=== PATIENT | female | born 1960 | race American Indian/Alaskan Native ===

== ENCOUNTER 2017-11-22 23:50 | Inpatient (IN) | payer OTHER ==
--- NOTE | 2017-11-23 00:03 | Emergency Department Report ---
<GRIS PALM - Last Filed: 11/23/17 05:00> ED General Adult HPI - General Chief complaint: Syncope Stated complaint: SYNCOPE Time Seen by Provider: 11/22/17 23:56 - Related Data Allergies Allergy/AdvReac Type Severity Reaction Status Date / Time No Known Allergies Allergy Unverified 11/23/17 08:20 ED Review of Systems ROS: Stated complaint: SYNCOPE Other details as noted in HPI ED Course Vital Signs 11/22/17 11/23/17 11/23/17 23:55 00:00 00:35 Pulse Rate 89 94 H 91 H Respiratory 16 16 14 Rate Blood Pressure 133/91 165/85 Blood Pressure 165/85 [Left] O2 Sat by Pulse 100 90 99 Oximetry 11/23/17 11/23/17 11/23/17 00:45 01:00 01:15 Pulse Rate 94 H 93 H 97 H Respiratory 16 13 16 Rate Blood Pressure 136/85 138/80 146/94 Blood Pressure [Left] O2 Sat by Pulse 93 100 94 Oximetry 11/23/17 11/23/17 11/23/17 01:30 01:35 01:45 Pulse Rate 93 H 91 H Respiratory 10 L 14 16 Rate Blood Pressure 142/87 136/87 Blood Pressure [Left] O2 Sat by Pulse 98 100 99 Oximetry 11/23/17 11/23/17 11/23/17 02:00 02:15 02:31 Pulse Rate 87 89 91 H Respiratory 19 13 16 Rate Blood Pressure 138/80 142/87 142/87 Blood Pressure [Left] O2 Sat by Pulse 99 100 100 Oximetry 11/23/17 11/23/17 11/23/17 02:45 03:01 03:15 Pulse Rate 93 H 88 89 Respiratory 18 18 14 Rate Blood Pressure 136/87 136/87 136/87 Blood Pressure [Left] O2 Sat by Pulse 100 100 100 Oximetry 11/23/17 11/23/17 11/23/17 03:49 04:01 04:15 Pulse Rate 93 H 94 H Respiratory 17 23 Rate Blood Pressure 136/87 136/87 136/87 Blood Pressure [Left] O2 Sat by Pulse 99 100 99 Oximetry 11/23/17 11/23/17 11/23/17 04:55 05:00 05:15 Pulse Rate 96 H 87 84 Respiratory 18 16 17 Rate Blood Pressure 136/87 146/81 146/81 Blood Pressure [Left] O2 Sat by Pulse 98 100 Oximetry 11/23/17 11/23/17 11/23/17 05:30 05:45 06:00 Pulse Rate 86 86 89 Respiratory 15 18 18 Rate Blood Pressure 135/83 137/92 138/91 Blood Pressure [Left] O2 Sat by Pulse 100 99 94 Oximetry 11/23/17 11/23/17 11/23/17 06:15 06:30 07:00 Pulse Rate 83 86 79 Respiratory 15 15 15 Rate Blood Pressure 135/83 127/73 126/71 Blood Pressure [Left] O2 Sat by Pulse 100 93 96 Oximetry 11/23/17 11/23/17 11/23/17 07:15 07:30 07:45 Pulse Rate 78 78 83 Respiratory 14 14 14 Rate Blood Pressure 123/67 118/69 120/75 Blood Pressure [Left] O2 Sat by Pulse 95 99 97 Oximetry ED Medical Decision Making - Lab Data Result diagrams: 11/23/17 00:37 11/23/17 00:37 Lab Results 11/23/17 11/23/17 11/23/17 Range/Units 00:37 00:37 00:37 WBC 12.2 H (4.5-11.0) K/mm3 RBC 3.59 L (3.65-5.03) M/mm3 Hgb 11.9 (10.1-14.3) gm/dl Hct 34.7 (30.3-42.9) % MCV 97 (79-97) fl MCH 33 H (28-32) pg MCHC 34 (30-34) % RDW 14.4 (13.2-15.2) % Plt Count 163 (140-440) K/mm3 Lymph % (Auto) 18.3 (13.4-35.0) % [place] % (Auto) 8.2 H (0.0-7.3) % Eos % (Auto) 1.4 (0.0-4.3) % Baso % (Auto) 0.3 (0.0-1.8) % Lymph # 2.2 (1.2-5.4) K/mm3 [place] # 1.0 H (0.0-0.8) K/mm3 Eos # 0.2 (0.0-0.4) K/mm3 Baso # 0.0 (0.0-0.1) K/mm3 Seg Neutrophils % 71.8 H (40.0-70.0) % Seg Neutrophils # 8.8 H (1.8-7.7) K/mm3 PT (12.2-14.9) Sec. INR (0.87-1.13) APTT (24.2-36.6) Sec. Thrombin Time (15.1-19.6) Sec. Sodium 141 (137-145) mmol/L Potassium 2.8 L* (3.6-5.0) mmol/L Chloride 101.6 (98-107) mmol/L Carbon Dioxide 25 (22-30) mmol/L Anion Gap 17 mmol/L BUN 11 (7-17) mg/dL Creatinine 0.7 (0.7-1.2) mg/dL Estimated GFR > 60 ml/min BUN/Creatinine Ratio 16 % Glucose 124 H (65-100) mg/dL Calcium 9.5 (8.4-10.2) mg/dL Troponin T < 0.010 (0.00-0.029) ng/mL 11/23/17 Range/Units 00:39 WBC (4.5-11.0) K/mm3 RBC (3.65-5.03) M/mm3 Hgb (10.1-14.3) gm/dl Hct (30.3-42.9) % MCV (79-97) fl MCH (28-32) pg MCHC (30-34) % RDW (13.2-15.2) % Plt Count (140-440) K/mm3 Lymph % (Auto) (13.4-35.0) % [place] % (Auto) (0.0-7.3) % Eos % (Auto) (0.0-4.3) % Baso % (Auto) (0.0-1.8) % Lymph # (1.2-5.4) K/mm3 [place] # (0.0-0.8) K/mm3 Eos # (0.0-0.4) K/mm3 Baso # (0.0-0.1) K/mm3 Seg Neutrophils % (40.0-70.0) % Seg Neutrophils # (1.8-7.7) K/mm3 PT 14.1 (12.2-14.9) Sec. INR 1.04 (0.87-1.13) APTT 29.2 (24.2-36.6) Sec. Thrombin Time 15.5 (15.1-19.6) Sec. Sodium (137-145) mmol/L Potassium (3.6-5.0) mmol/L Chloride (98-107) mmol/L Carbon Dioxide (22-30) mmol/L Anion Gap mmol/L BUN (7-17) mg/dL Creatinine (0.7-1.2) mg/dL Estimated GFR ml/min BUN/Creatinine Ratio % Glucose (65-100) mg/dL Calcium (8.4-10.2) mg/dL Troponin T (0.00-0.029) ng/mL - Radiology Data CTA of the head and neck are within normal limits - Medical Decision Making The patient is a 57-year-old female who had a episode of cardiac arrest. Patient was shocked twice prior to arrival. Patient arrived alert but unable to speak. Patient was made a code stroke and was sent for his emergent CT of the head. No bleeds were seen. Was advised that the patient get a CTA of the head and neck which also was negative. Patient has returned back to her baseline. Patient is able to speak in the lower extremities as is. At the time of admission patient's NIH was 0. Patient also complains some low back discomfort and x-ray of been ordered. Patient be admitted to the hospitalist service at this time. Critical care attestation.: If time is entered above; I have spent that time in minutes in the direct care of this critically ill patient, excluding procedure time. ED Disposition Clinical Impression: Cardiac arrest, Hypokalemia, TIA (transient ischemic attack) Dysrhythmia, cardiac Qualifiers: Arrhythmia type: unspecified cardiac arrhythmia Qualified Code(s): I49.9 - Cardiac arrhythmia, unspecified Disposition: 09 OP ADMIT IP TO THIS HOSP Is pt being admited?: Yes Does the pt Need Aspirin: Yes Condition: Serious Time of Disposition: 05:05 <MACIE RICH - Last Filed: 11/23/17 17:00> ED General Adult HPI - General Source: patient, EMS Limitations: Altered Mental Status - History of Present Illness Initial comments: 57-year-old female presents with EMS after being found unresponsive after reported possible fall at work. Per EMS bystander started CPR and applied AED which applied one shock. On EMS arrival patient was without a pulse another shock applied per EMS. Return of spontaneous circulation achieved per EMS. On arrival patient is responding to commands and moving all extremities but aphasic. Frontal hematoma noted on exam pupils equal and reactive c-collar placed for precautions. Patient diaphoretic with urinary incontinence. CT stroke protocol initiated for immediate CT. MD Complaint: syncope ED Review of Systems Comment: Unobtainable due to pts medical conditions ED Physical Exam - General Limitations: Altered Mental Status General appearance: alert, in distress, other (patient following commands and moving all extremities) - Head Head exam: Present: other (frontal hematoma noted. No yuen sign no hemotympanum.) - Eye Eye exam: Present: PERRL Pupils: Present: normal accommodation - ENT ENT exam: Present: normal orophraynx, mucous membranes moist, TM's normal bilaterally - Neck Neck exam: Absent: tenderness, meningismus - Respiratory Respiratory exam: Present: normal lung sounds bilaterally, other (patient protecting airway, gag reflex intact). Absent: respiratory distress, wheezes, rales - Cardiovascular Cardiovascular Exam: Present: regular rate, normal heart sounds - GI/Abdominal GI/Abdominal exam: Present: soft. Absent: distended, tenderness, guarding, rebound - Rectal Rectal exam: Present: deferred - Extremities Exam Extremities exam: Present: full ROM. Absent: pedal edema, joint swelling - Back Exam Back exam: Present: normal inspection. Absent: tenderness - Neurological Exam Neurological exam: Present: alert (nonverbal) - Skin Skin exam: Present: diaphoretic ED Course Vital Signs 11/22/17 11/23/17 11/23/17 23:55 00:00 00:35 Pulse Rate 89 94 H 91 H Respiratory 16 16 14 Rate Blood Pressure 133/91 165/85 Blood Pressure 165/85 [Left] O2 Sat by Pulse 100 90 99 Oximetry 11/23/17 11/23/17 11/23/17 00:45 01:00 01:15 Pulse Rate 94 H 93 H 97 H Respiratory 16 13 16 Rate Blood Pressure 136/85 138/80 146/94 Blood Pressure [Left] O2 Sat by Pulse 93 100 94 Oximetry 11/23/17 11/23/17 11/23/17 01:30 01:35 01:45 Pulse Rate 93 H 91 H Respiratory 10 L 14 16 Rate Blood Pressure 142/87 136/87 Blood Pressure [Left] O2 Sat by Pulse 98 100 99 Oximetry 11/23/17 11/23/17 11/23/17 02:00 02:15 02:31 Pulse Rate 87 89 91 H Respiratory 19 13 16 Rate Blood Pressure 138/80 142/87 142/87 Blood Pressure [Left] O2 Sat by Pulse 99 100 100 Oximetry 11/23/17 11/23/17 11/23/17 02:45 03:01 03:15 Pulse Rate 93 H 88 89 Respiratory 18 18 14 Rate Blood Pressure 136/87 136/87 136/87 Blood Pressure [Left] O2 Sat by Pulse 100 100 100 Oximetry 11/23/17 11/23/17 11/23/17 03:49 04:01 04:15 Pulse Rate 93 H 94 H Respiratory 17 23 Rate Blood Pressure 136/87 136/87 136/87 Blood Pressure [Left] O2 Sat by Pulse 99 100 99 Oximetry 11/23/17 11/23/17 11/23/17 04:55 05:00 05:15 Pulse Rate 96 H 87 84 Respiratory 18 16 17 Rate Blood Pressure 136/87 146/81 146/81 Blood Pressure [Left] O2 Sat by Pulse 98 100 Oximetry 11/23/17 11/23/17 11/23/17 05:30 05:45 06:00 Pulse Rate 86 86 89 Respiratory 15 18 18 Rate Blood Pressure 135/83 137/92 138/91 Blood Pressure [Left] O2 Sat by Pulse 100 99 94 Oximetry 11/23/17 11/23/17 11/23/17 06:15 06:30 07:00 Pulse Rate 83 86 79 Respiratory 15 15 15 Rate Blood Pressure 135/83 127/73 126/71 Blood Pressure [Left] O2 Sat by Pulse 100 93 96 Oximetry 11/23/17 11/23/17 11/23/17 07:15 07:30 07:45 Pulse Rate 78 78 83 Respiratory 14 14 14 Rate Blood Pressure 123/67 118/69 120/75 Blood Pressure [Left] O2 Sat by Pulse 95 99 97 Oximetry - Reevaluation(s) Reevaluation #1: 11/23/17 00:10 Patient alert but nonverbal, protecting airway. Vital signs reviewed. Patient stable for transport for immediate CT scan. Reevaluation #2: 11/23/17 00:58 Patient now alert and oriented 3 and reports of pain in her head over the hematoma. Pt moving all extremities. Pt denies any sx prior to passing out. Pt denies any current pain - Consultations Consultation #1: 11/23/17 00:[address] Pettit (neurology) who agrees with management thus far. Agrees no TPA at this time secondary to likely trauma. Recommendation for CT angiogram of head and neck. ED Medical Decision Making - Lab Data Result diagrams: 11/23/17 00:37 11/23/17 15:00 - EKG Data 11/23/17 01:15 Ventricular paced rhythm. Left bundle branch block. Rate of 95. - Medical Decision Making Reassessment patient is alert and oriented [address] angiogram study. Patient to be signed out to Dr. Palm for follow-up on CT studies and admission. Critical care time in (mins) excluding proc time.: 45 - Level of Consciousness 1a. Level of Consciousness: alert/keenly responsive - LOC Questions 1b. LOC Questions: answers no questions correctly - LOC Command 1c. LOC Commands: performs tasks correctly - Best Gaze 2. Best Gaze: partial gaze palsy - Visual 3. Visual: no visual loss - Facial Palsy 4. Facial Palsy: normal symmetrical movement - Motor Arm 5b. Motor Arm Right: no drift 5a. Motor Arm Left: no drift - Motor Leg 6a. Motor Leg Left: no drift 6b. Motor Leg Right: no drift - Limb Ataxia 7. Limb Ataxia: absent - Sensory 8. Sensory: normal - Best Language 9. Best Language: severe aphasia - Dysarthria 10. Dysarthria: mild/moderate dysarthria - Extinction and Inattention 11. Extinction/Inattention: no abnormality (No TPA given secondary to possible head trauma) - Scoring Total Score: 6 Stroke Severity: Moderate Stroke
--- NOTE | 2017-11-23 00:40 | Cat Scan Report ---
FINAL REPORT PROCEDURE: CT HEAD/BRAIN WO CON TECHNIQUE: Computerized tomography of the head was performed without contrast material. HISTORY: trauma COMPARISON: No prior studies are available for comparison. FINDINGS: Skull and scalp: There is right frontal scalp swelling. There is no skull fracture. Paranasal sinuses: Normal. Ventricles and subarachnoid spaces: There is mild central and cortical atrophy. There is no hydrocephalus or asymmetry.. Cerebrum: No evidence of hemorrhage, acute infarction or mass . Cerebellum and brainstem: No evidence of hemorrhage, acute infarction or mass. IMPRESSION: There is right frontal scalp swelling. There is no skull fracture. There is no intracranial hemorrhage.
--- NOTE | 2017-11-23 01:00 | Cat Scan Report ---
FINAL REPORT PROCEDURE: CT CERVICAL SPINE WO CON TECHNIQUE: Computerized tomography of the cervical spine was performed from the skull base to T1 without contrast material. HISTORY: trauma COMPARISON: No prior studies are available for comparison. FINDINGS: There are no fractures or malalignments. There is no significant degenerative disc change or facet arthropathy. The skull base and foramen magnum are intact. Soft tissues are unremarkable. Images of the upper thorax demonstrate bilateral pulmonary infiltrates. IMPRESSION: There is no acute traumatic bony injury..
[2017-11-23 01:02] LABS: Basophils % (Auto) 0.3 % (0.0-1.8); Eosinophils # (Auto) 0.2 K/mm3 (0.0-0.4); Eosinophils % (Auto) 1.4 % (0.0-4.3); Hematocrit 34.7 % (30.3-42.9); Hemoglobin 11.9 gm/dl (10.1-14.3); Lymphocytes # (Auto) 2.2 K/mm3 (1.2-5.4); Lymphocytes % (Auto) 18.3 % (13.4-35.0); Mean Corpuscular HGB Conc 34 % (30-34); Mean Corpuscular Hemoglobin 33 pg (28-32); Mean Corpuscular Volume 97 fl (79-97); Monocytes % (Auto) 8.2 % (0.0-7.3); Platelet Count 163 K/mm3 (140-440); Red Blood Count 3.59 M/mm3 (3.65-5.03); Red Cell Distribution Width 14.4 % (13.2-15.2)
--- NOTE | 2017-11-23 01:02 | XRay Report ---
FINAL REPORT PROCEDURE: XR CHEST 1V AP TECHNIQUE: Chest radiograph anteroposterior view. CPT 53443 HISTORY: Chest Pain COMPARISON: No prior studies are available for comparison. FINDINGS: Heart: Heart size is normal. Mediastinum/Vessels: Normal. Lungs/Pleural space: There are infiltrates throughout the right lung. The left lung is clear. There are no effusions or pneumothoraces.. Bony thorax: No acute osseous abnormality. Life support devices: Pacemaker leads are in proper position.. IMPRESSION: Heart size is normal. There are infiltrates throughout the right lung. The left lung is clear. There are no effusions or pneumothoraces.. Pacemaker leads are in proper position.. .
[2017-11-23 01:23] LABS: INR 1.04 (0.87-1.13)
[2017-11-23 01:24] LABS: Partial Thromboplastin Time 29.2 Sec. (24.2-36.6)
[2017-11-23 01:24] LABS: BUN/Creatinine Ratio 16; Blood Urea Nitrogen 11 mg/dL (7-17); Calcium 9.5 mg/dL (8.4-10.2); Hemolysis Index 8
[2017-11-23] MEDS ORDERED: KCL 10MEQ/100ML 10 MEQ/100 ML BAG IV ONE (01:35)
[2017-11-23 01:47] LABS: Thrombin Time 15.5 Sec. (15.1-19.6)
--- NOTE | 2017-11-23 03:11 | Event Note ---
Date: 11/23/17 Patient did not have access large enough for a CTA. I was able to use ultrasound machine to find a 20-gauge IV in the right ac
[2017-11-23] MEDS ORDERED: NORCO 5/325 PO ONE (04:23)
--- NOTE | 2017-11-23 04:27 | Cat Scan Report ---
FINAL REPORT PROCEDURE: CT ANGIO HEAD TECHNIQUE: Computerized tomographic angiography of the head was performed after the IV injection of iodinated nonionic contrast including image processing. The image data was postprocessed using 2-dimensional multiplanar reformatted (MPR) and 3-dimensional (MIP and/or volume rendered) techniques. HISTORY: cva COMPARISON: CT of the head the 11/22/2017 FINDINGS: Intracranial vessels: Carotid siphon: There is calcified plaque in the cavernous portions of the internal carotid arteries without stenosis. Anterior cerebral: Normal. Middle cerebral: Normal. Posterior cerebral:There is origin of the posterior cerebral arteries which is a normal variation. Vertebral arteries including basilar: Vertebral arteries and basilar artery are small in caliber but patent. Aneurysms: None. Dural sinuses: Normal. IMPRESSION: There is no intracranial arterial stenosis or occlusion. There is no aneurysm or vascular malformation.
--- NOTE | 2017-11-23 04:39 | Cat Scan Report ---
FINAL REPORT PROCEDURE: CT ANGIO NECK TECHNIQUE: Computerized tomographic angiography of the neck was performed after the IV injection of iodinated nonionic contrast including image processing. The image data was postprocessed using 2-dimensional multiplanar reformatted (MPR) and 3-dimensional (MIP and/or volume rendered) techniques. HISTORY: cva COMPARISON: No prior studies are available for comparison. Note: Assessment of carotid artery stenosis is based on measurement of the distal internal carotid artery diameter as the denominator for stenosis calculations and the [place] Citizen Symptomatic Carotid Endarterectomy Trial (NASCET) stenosis criteria . CPT 3100F FINDINGS: Sinuses: Normal . Non vascular cervical structures: No significant abnormality . Aortic arch: Normal . Right carotid artery: Normal . Left carotid artery: Normal . Vertebral arteries: Left vertebral artery is slightly dominant. This is a normal variation.. There are infiltrates at the lung apices. IMPRESSION: There is no cervical carotid or vertebral artery stenosis or dissection.
[2017-11-23] MEDS ORDERED: ASPIRIN PO ONE (05:05)
--- NOTE | 2017-11-23 05:11 | XRay Report ---
FINAL REPORT PROCEDURE: XR SPINE LUMBOSACRAL 2-3V TECHNIQUE: Lumbar spine radiographs, including AP, lateral, and lumbosacral spot views. CPT 52665 HISTORY: fall COMPARISON: No prior studies are available for comparison. FINDINGS: There is mild scoliosis with convexity to the right. There are no fractures. There is grade 1 anterior spondylolisthesis of L4 over L5 possibly due to facet arthropathy. There is bilateral facet arthropathy at L3-L4, L4-5 and L5-S1. Disc heights are within normal limits. Soft tissues are unremarkable. IMPRESSION: The there are degenerative changes as described. There is no acute traumatic injury..
[2017-11-23] MEDS ORDERED: ZOFRAN IV PRN (05:36)
[2017-11-23 06:51] LABS: Creatine Kinase MB 5.9 ng/mL (0.0-4.0)
[2017-11-23] MEDS ORDERED: ASPIRIN ONE (06:52)
--- NOTE | 2017-11-23 07:14 | History and Physical Report ---
CHIEF COMPLAINT: Syncopal attack. HISTORY OF PRESENTING ILLNESS: The patient is a 57-year-old female who was noted to have passed out at work and became unresponsive and the patient says she could not remember what happened before she passed out and the bystander started CPR and applied automated defibrillator to patient and shocked her once and then EMS was called. When EMS arrived, they found patient with no pulse and gave another shock and did some CPR on patient and patient regained spontaneous circulation and patient was brought to the Emergency Room and on arrival to the Emergency Room, the patient was responding to commands and moving all extremities but was not talking. The patient was also noted to be diaphoretic with urinary incontinence. The patient was presented for admission. PAST MEDICAL HISTORY: Pertinent for ill-defined heart disease. PAST SURGICAL HISTORY: Pertinent for pacemaker placement. FAMILY HISTORY: Family history is noncontributory. SOCIAL HISTORY: The patient does not smoke, does not drink alcohol and does not use illicit drugs. MEDICATIONS: The patient's home medications are not known at this time. ALLERGIES: There are no known drug allergies. REVIEW OF SYSTEMS: CONSTITUTIONAL: There is no fever, no chills. Diaphoresis is present. HEENT: There is no headache or sore throat. CARDIOVASCULAR: There is no chest pain or orthopnea. RESPIRATORY: There is no shortness of breath or cough. GASTROINTESTINAL SYSTEM: There is no nausea, no vomiting, no abdominal pain, diarrhea, or constipation. NEUROLOGIC: Syncopal attack noted, unresponsiveness was noted and aphasia of speech disturbance noted. MUSCULOSKELETAL SYSTEM: There is no joint pain or swelling. DERMATOLOGICAL SYSTEM: There is no skin rash or itching. GENITOURINARY SYSTEM: There is no dysuria, hematuria, or flank pain. Rest of system review is normal. PHYSICAL EXAMINATION: GENERAL: At this time of exam, the patient was found to be alert, oriented x 3, looking weak, but not in acute disease. VITAL SIGNS: Initial vital signs at the time of presentation showed pulse of 89, respiration 16, blood pressure 165/85, O2 saturation of 100% on room air. HEENT: Show pupils are equal, round, reactive to light and accommodating. Extraocular muscles are intact. NECK: Neck is supple with no JVD or carotid bruit. CARDIOVASCULAR: Showed normal first and second heart sounds with no gallops or murmurs. RESPIRATORY SYSTEM: Show good air entry on both sides of the lungs with no abnormal breath sounds. GASTROINTESTINAL SYSTEM: Show abdomen to be full, soft, nontender with no organomegaly or rigidity. NEUROLOGICAL: Neuro exam shows no focal deficits. MUSCULOSKELETAL: Shows no joint swelling or tenderness. DERMATOLOGICAL SYSTEM: Show no skin rash. GENITOURINARY: Showing no costovertebral angle tenderness. PERTINENT LABORATORY DATA AND IMAGING STUDIES: The patient had chest done that shows right lung infiltrate with clear left lung. The patient has cervical spine CT done that shows no fractures or acute lesion. The patient had CT of the head without contrast done that showed right frontal scalp swelling with no fracture in the skull and no intracranial hemorrhage. The patient had a CT angiogram of head and neck done that were unremarkable and patient's lumbar spine x-ray showed degenerative joint disease. The patient's lab result shows CBC with elevated white count of 12,200 with normal hemoglobin and normal hematocrit and CBC differential showing elevated segmented neutrophil of 71.8. The patient's coagulation studies were unremarkable and chemistry showed low potassium level of 2.8. DIAGNOSES: 1. Post cardiac arrest state. 2. Syncope. 3. Hypokalemia. PLAN OF ACTION: 1. The patient will be admitted to the ICU. 2. The patient will have cardiac enzymes involving troponin, total CK and CK-MB checked q. 6 hours x 2 more levels. 3. The patient will have complete echocardiogram done this morning and will also have bilateral carotid Doppler done because of the syncopal attack. 4. The patient will have Cardiology consult with Dr. Plummer because of cardiac arrest requiring cardiac shock. 5. The patient will have a Critical Care consult with Dr. Laureano because of ICU admission. 6. The patient will be on p.r.n. medications like Tylenol 650 mg by mouth every 4 hours for fever and headache and aspirin 325 mg daily by mouth. The patient will also be on IV morphine 2 mg every 3 hours as needed for pain and IV Zofran 4 mg every 8 hours as needed for nausea and vomiting and patient will have additional 10 mEq of KCl given in addition to the first order for 10 mEq. JOB# [id number] OCN/NTS FERNANDAD
[2017-11-23] MEDS ORDERED: NACL 0.9% 1000 ML 1,000 ML ONE (09:03)
[2017-11-23] MEDS: KCL 10MEQ/100ML 10 MEQ/100 ML BAG IV SCH ×2 (09:29→12:06)
[2017-11-23] MEDS: ASPIRIN PO SCH (09:30)
[2017-11-23] MEDS: HEPARIN SUB-Q SCH ×2 (09:30→21:04)
--- NOTE | 2017-11-23 11:15 | Consultation ---
History of Present Illness Consult date: 11/23/17 Requesting physician: TAYO SCHWARTZ Consult reason: cardiac arrest, syncope History of present illness: The pt is a 57 YO female with a past medical history of cardiomyopathy, ? AICD in situ (placed 09/2017), ETOH abuse, cocaine use, tobacco use. She is previously unknown to our practice and reports that she is regularly followed by [facility]. She does not recall the events which lead to her hospitalization. She works for [employer] and was found unresponsive after reported possible fall at work. Per EMS, bystander started CPR and applied AED which applied one shock. On EMS arrival patient was without a pulse another shock applied per EMS. Return of spontaneous circulation achieved per EMS. On arrival to ED, pt was responding to commands and moving all extremities but aphasic. On evaluation this AM, pt is A&O with no current cardiac complaints. Pt denies any prior CAD, AMI or arrhythmias. She is unsure if her AICD fired yesterday because she does not remember the events of yesterday. She does not know which company her AICD belongs to. Past History Past Medical History: heart failure Past Surgical History: Other (AICD) Social history: smoking, alcohol abuse, other (h/o cocaine use) Medications and Allergies Allergies Allergy/AdvReac Type Severity Reaction Status Date / Time No Known Allergies Allergy Unverified 11/23/17 08:20 Active Meds: Active Medications Acetaminophen (Tylenol) 650 mg PO Q4H PRN PRN Reason: Fever >101 Aspirin (Aspirin) 325 mg PO QDAY [facility] Last Admin: 11/23/17 09:30 Dose: 325 mg Heparin Sodium (Porcine) (Heparin) 5,000 unit SUB-Q Q12HR [facility] Last Admin: 11/23/17 09:30 Dose: 5,000 unit Morphine Sulfate (Morphine) 2 mg IV Q3H PRN PRN Reason: Pain, Moderate (4-6) Ondansetron HCl (Zofran) 4 mg IV Q8H PRN PRN Reason: Nausea And Vomiting Potassium Chloride (Potassium Chloride) 40 meq PO ONCE ONE Stop: 11/23/17 12:01 Potassium Chloride (Potassium Chloride) 40 meq PO ONCE ONE Stop: 11/23/17 18:01 Sodium Chloride (Sodium Chloride Flush Syringe 10 Ml) 10 ml IV PRN PRN PRN Reason: LINE FLUSH Review of Systems All systems: negative Cardiovascular: syncope, no chest pain, no shortness of breath, no dyspnea on exertion Neurological: syncope Physical Examination Vital Signs Pulse Resp BP Pulse Ox 89 16 165/85 100 11/22/17 23:55 11/22/17 23:55 11/22/17 23:55 11/22/17 23:55 General appearance: no acute distress HEENT: Positive: PERRL, Normocephaly, Mucus Membranes Moist Neck: Positive: neck supple, trachea midline Cardiac: Positive: Reg Rate and Rhythm, S1/S2 Lungs: Positive: clear to auscultation Neuro: Positive: Grossly Intact Abdomen: Positive: Soft. Negative: Tender Skin: Positive: Clear. Negative: Rash, Wound Musculoskeletal: No Pain Extremities: Absent: edema Results 11/23/17 00:37 11/23/17 00:37 Cardiac Enzymes 11/23/17 Range/Units 05:48 CK-MB (CK-2) 5.9 H (0.0-4.0) ng/mL Coagulation 11/23/17 Range/Units 00:39 PT 14.1 (12.2-14.9) Sec. INR 1.04 (0.87-1.13) APTT 29.2 (24.2-36.6) Sec. CBC 11/23/17 Range/Units 00:37 WBC 12.2 H (4.5-11.0) K/mm3 RBC 3.59 L (3.65-5.03) M/mm3 Hgb 11.9 (10.1-14.3) gm/dl Hct 34.7 (30.3-42.9) % Plt Count 163 (140-440) K/mm3 Lymph # 2.2 (1.2-5.4) K/mm3 [place] # 1.0 H (0.0-0.8) K/mm3 Eos # 0.2 (0.0-0.4) K/mm3 Baso # 0.0 (0.0-0.1) K/mm3 Comprehensive Metabolic Panel 11/23/17 Range/Units 00:37 Sodium 141 (137-145) mmol/L Potassium 2.8 L* (3.6-5.0) mmol/L Chloride 101.6 (98-107) mmol/L Carbon Dioxide 25 (22-30) mmol/L BUN 11 (7-17) mg/dL Creatinine 0.7 (0.7-1.2) mg/dL Glucose 124 H (65-100) mg/dL Calcium 9.5 (8.4-10.2) mg/dL - Imaging and Cardiology Echo: pending EKG: report reviewed, image reviewed EKG interpretations - Telemetry EKG Rhythm: Paced - EKG Ventricular dysrhythmias: ventricular premature com Pacemaker: atrial pacing w/capture Assessment and Plan Alexandre negative for AMI. ECG shows NAF. Attempt to obtain [facility] records. Obtain echo. Replete K+. Interrogate AICD. The patient has been seen in conjunction with Dr. Mcgregor who agrees with the assessment and plan of care. - Patient Problems (1) Cardiac arrest with successful resuscitation Current Visit: Yes Status: Acute (2) History of cardiomyopathy Current Visit: Yes Status: Chronic (3) Automatic implantable cardioverter-defibrillator in situ Current Visit: Yes Status: Chronic (4) History of ETOH abuse Current Visit: Yes Status: Chronic (5) History of cocaine abuse Current Visit: Yes Status: Chronic (6) Tobacco use Current Visit: Yes Status: Chronic (7) Pneumonia Current Visit: Yes Status: Suspected (8) Hypokalemia Current Visit: Yes Status: Acute
--- NOTE | 2017-11-23 11:52 | Progress Note ---
Assessment and Plan Assessment and plan: S/p cardiopulmonary arrest. Patient with successful resuscitation. Continue per cardiology recommendations. -Alexandre negative for AMI. ECG shows NAF. -Attempt to obtain [facility] records. -Follow up echocardiogram -Interrogate AICD Cardiomyopathy with AICD in situ. As above History of EtOH/cocaine abuse. Continue withdrawal protocols. Pneumonia. Likely aspiration secondary from cardiopulmonary arrest. Start IV antibiotic for follow-up serial chest x-ray Hypokalemia. Replete potassium. History Interval history: The pt is a 57 YO female with a past medical history of cardiomyopathy, ? AICD in situ (placed 09/2017), ETOH abuse, cocaine use, tobacco use. She is regularly followed by [facility]. She does not recall the events which lead to her hospitalization. She works for [employer] and was found unresponsive after reported possible fall at work. Per EMS, bystander started CPR and applied AED which applied one shock. On EMS arrival, patient was without a pulse another shock applied per EMS. Return of spontaneous circulation achieved per EMS. On arrival to ED, pt was responding to commands and moving all extremities but aphasic. Presently, pt is A&O with no current cardiac complaints. Pt denies any prior CAD, AMI or arrhythmias. She does not remember the events leading up to her admission. Hospitalist Physical - Constitutional Vitals: Temp Pulse Resp BP Pulse Ox 83 14 120/75 96 11/23/17 07:45 11/23/17 07:45 11/23/17 07:45 11/23/17 08:44 General appearance: Present: no acute distress - EENT Eyes: Present: PERRL, EOM intact ENT: hearing intact, clear oral mucosa, dentition normal - Neck Neck: Present: supple, normal ROM - Respiratory Respiratory effort: normal Respiratory: bilateral: CTA - Cardiovascular Rhythm: regular Heart Sounds: Present: S1 & S2. Absent: gallop, rub - Extremities Extremities: no ischemia, No edema, Full ROM - Abdominal General gastrointestinal: soft, non-tender, non-distended, normal bowel sounds - Integumentary Integumentary: Present: clear, warm, dry - Neurologic Neurologic: CNII-XII intact, moves all extremities Results - Labs CBC & Chem 7: 11/23/17 00:37 11/23/17 00:37 Labs: Laboratory Last Values WBC 12.2 K/mm3 (4.5-11.0) H 11/23/17 00:37 RBC 3.59 M/mm3 (3.65-5.03) L 11/23/17 00:37 Hgb 11.9 gm/dl (10.1-14.3) 11/23/17 00:37 Hct 34.7 % (30.3-42.9) 11/23/17 00:37 MCV 97 fl (79-97) 11/23/17 00:37 MCH 33 pg (28-32) H 11/23/17 00:37 MCHC 34 % (30-34) 11/23/17 00:37 RDW 14.4 % (13.2-15.2) 11/23/17 00:37 Plt Count 163 K/mm3 (140-440) 11/23/17 00:37 Lymph % (Auto) 18.3 % (13.4-35.0) 11/23/17 00:37 [place] % (Auto) 8.2 % (0.0-7.3) H 11/23/17 00:37 Eos % (Auto) 1.4 % (0.0-4.3) 11/23/17 00:37 Baso % (Auto) 0.3 % (0.0-1.8) 11/23/17 00:37 Lymph # 2.2 K/mm3 (1.2-5.4) 11/23/17 00:37 [place] # 1.0 K/mm3 (0.0-0.8) H 11/23/17 00:37 Eos # 0.2 K/mm3 (0.0-0.4) 11/23/17 00:37 Baso # 0.0 K/mm3 (0.0-0.1) 11/23/17 00:37 Seg Neutrophils % 71.8 % (40.0-70.0) H 11/23/17 00:37 Seg Neutrophils # 8.8 K/mm3 (1.8-7.7) H 11/23/17 00:37 PT 14.1 Sec. (12.2-14.9) 11/23/17 00:39 INR 1.04 (0.87-1.13) 11/23/17 00:39 APTT 29.2 Sec. (24.2-36.6) 11/23/17 00:39 Thrombin Time 15.5 Sec. (15.1-19.6) 11/23/17 00:39 Sodium 141 mmol/L (137-145) 11/23/17 00:37 Potassium 2.8 mmol/L (3.6-5.0) L* 11/23/17 00:37 Chloride 101.6 mmol/L (98-107) 11/23/17 00:37 Carbon Dioxide 25 mmol/L (22-30) 11/23/17 00:37 Anion Gap 17 mmol/L 11/23/17 00:37 BUN 11 mg/dL (7-17) 11/23/17 00:37 Creatinine 0.7 mg/dL (0.7-1.2) 11/23/17 00:37 Estimated GFR > 60 ml/min 11/23/17 00:37 BUN/Creatinine Ratio 16 % 11/23/17 00:37 Glucose 124 mg/dL (65-100) H 11/23/17 00:37 Calcium 9.5 mg/dL (8.4-10.2) 11/23/17 00:37 Magnesium 1.70 mg/dL (1.7-2.3) 11/23/17 05:48 Total Creatine Kinase 530 units/L (30-135) H 11/23/17 05:48 CK-MB (CK-2) 5.9 ng/mL (0.0-4.0) H 11/23/17 05:48 CK-MB (CK-2) Rel Index 1.1 (0-4) 11/23/17 05:48 Troponin T 0.022 ng/mL (0.00-0.029) 11/23/17 05:48
[2017-11-23] MEDS ORDERED: KCL 10MEQ/100ML 10 MEQ/100 ML BAG IV SCH (12:00)
[2017-11-23] MEDS ORDERED: POTASSIUM CHLORIDE PO ONE ×2 (12:00→18:00)
[2017-11-23] MEDS ORDERED: MAGNESIUM SULFATE 4GM/100ML 4 GM/100 ML BAG IV ONE (13:00)
[2017-11-23] MEDS ORDERED: ADRENALIN ONE (13:22)
[2017-11-23] MEDS ORDERED: CALCIUM CHLORIDE IV ONE (13:22)
[2017-11-23] MEDS ORDERED: D50W (25GM) Syringe IV ONE (13:22)
[2017-11-23] MEDS ORDERED: SODIUM BICARBONATE IV ONE (13:22)
[2017-11-23] MEDS: ROCEPHIN/NS 1 GM/50 ML 1 GM/50 ML BAG IV SCH (14:16)
[2017-11-23] MEDS: MORPHINE IV PRN ×3 (14:35→21:04)
[2017-11-23 16:52] LABS: BUN/Creatinine Ratio 13; Blood Urea Nitrogen 8 mg/dL (7-17); Calcium 9.1 mg/dL (8.4-10.2); Hemolysis Index 11
--- NOTE | 2017-11-23 16:56 | Consultation ---
History of Present Illness Consult date: 11/23/17 Requesting physician: JOHNNY HERNADEZ Reason for consult: other (Post cardiac arrest, syncope) History of present illness: The pt is a 57 YO female with a past medical history of cardiomyopathy, s/p cardiac device (placed 09/2017), ETOH abuse, cocaine use, tobacco use. She does not recall the events which lead to her hospitalization. She works for [employer] and was found unresponsive after reported possible fall at work. Per EMS, bystander started CPR and applied AED which applied one shock. On EMS arrival patient was without a pulse another shock applied per EMS. Return of spontaneous circulation achieved per EMS. On arrival to ED, patient was responding to commands and moving all extremities but aphasic. She was admitted to the ICU for closer monitoring Patient was seen and examined. Vitals, labs,medications, chart and imaging were reviewed. She is awake, alert, oriented. Does not remember the immediate events that led to her collapse. Past History Past Medical History: heart failure Past Surgical History: Other (AICD) Social history: smoking, alcohol abuse, other (h/o cocaine use) Medications and Allergies Allergies Allergy/AdvReac Type Severity Reaction Status Date / Time No Known Allergies Allergy Unverified 11/23/17 08:20 Active Meds: Active Medications Acetaminophen (Tylenol) 650 mg PO Q4H PRN PRN Reason: Fever >101 Aspirin (Aspirin) 325 mg PO QDAY [facility] Last Admin: 11/23/17 09:30 Dose: 325 mg Heparin Sodium (Porcine) (Heparin) 5,000 unit SUB-Q Q12HR [facility] Last Admin: 11/23/17 09:30 Dose: 5,000 unit Ceftriaxone Sodium (Rocephin/Ns 1 Gm/50 Ml) 1 gm in 50 mls @ 100 mls/hr IV Q24HR [facility]; Protocol Last Admin: 11/23/17 14:16 Dose: 100 mls/hr Magnesium Sulfate (Magnesium Sulfate 4gm/100ml) 4 gm in 100 mls @ 25 mls/hr IV ONCE ONE Stop: 11/23/17 16:59 Last Admin: 11/23/17 16:07 Dose: 25 mls/hr Morphine Sulfate (Morphine) 2 mg IV Q3H PRN PRN Reason: Pain, Moderate (4-6) Last Admin: 11/23/17 14:35 Dose: 2 mg Ondansetron HCl (Zofran) 4 mg IV Q8H PRN PRN Reason: Nausea And Vomiting Potassium Chloride (Potassium Chloride) 40 meq PO ONCE ONE Stop: 11/23/17 18:01 Sodium Chloride (Sodium Chloride Flush Syringe 10 Ml) 10 ml IV PRN PRN PRN Reason: LINE FLUSH Physical Examination Vital signs: Vital Signs Pulse Resp BP Pulse Ox 89 16 165/85 100 11/22/17 23:55 11/22/17 23:55 11/22/17 23:55 11/22/17 23:55 Results - Laboratory Findings CBC and BMP: 11/23/17 00:37 11/23/17 15:00 PT/INR, D-dimer PT 14.1 Sec. (12.2-14.9) 11/23/17 00:39 INR 1.04 (0.87-1.13) 11/23/17 00:39 D-Dimer 558.12 ng/mlDDU (0-234) H 11/23/17 15:00 Abnormal lab findings: Abnormal Labs 11/23/17 11/23/17 11/23/17 00:37 00:37 05:48 WBC 12.2 H RBC 3.59 L MCH 33 H [place] % (Auto) 8.2 H [place] # 1.0 H Seg Neutrophils % 71.8 H Seg Neutrophils # 8.8 H D-Dimer Potassium 2.8 L* Carbon Dioxide Creatinine Glucose 124 H Total Creatine Kinase 530 H CK-MB (CK-2) 5.9 H 11/23/17 11/23/17 15:00 15:00 WBC RBC MCH [place] % (Auto) [place] # Seg Neutrophils % Seg Neutrophils # D-Dimer 558.12 H Potassium Carbon Dioxide 20 L Creatinine 0.6 L Glucose 120 H Total Creatine Kinase CK-MB (CK-2) Assessment and Plan -Cardiac arrest with ROSC Syncope h/o Cardiomyopathy h/o substance abuse disorder. Aspiration pneumonitis -Continue to monitor in the ICU, plan to transfer telemetry in the morning. -AICD interrogation per cardiology -Replete electrolytes -Keep K>4 and Magnesium at 2 -Mobility -Cardioprotective measures -Substance abuse counselling -Monitor off antibiotics, suspect this is aspiration pneumonitis. -prn bronchodilators -Supplemental oxygen as indicated for O2 sats<88% The high probability of a clinically significant, sudden or life-threatening deterioration of the [cardiac, respiratory] system(s) required my full and direct attention, intervention and personal management. The aggregate critical care time was [38] minutes without overlap. Time includes spent on; [x] Data Review and interpretation [x] Patient assessment and monitoring of vital signs [x] Documentation [x] Medication orders and management
[2017-11-23] MEDS: TYLENOL PO PRN (21:03)
[2017-11-23 21:53] LABS: Amphetamine Screen,Urine PRESUMPTIVE NEGATIVE; Benzodiazepines Screen,Urine PRESUMPTIVE NEGATIVE; Cannabinoid Screen,Urine PRESUMPTIVE NEGATIVE; Cocaine Screen,Urine PRESUMPTIVE NEGATIVE; Methadone Screen,Urine PRESUMPTIVE NEGATIVE; Opiate Screen,Urine PRESUMPTIVE NEGATIVE
[2017-11-24] MEDS: MORPHINE IV PRN ×3 (03:03→23:00)
[2017-11-24 08:46] LABS: BUN/Creatinine Ratio 14; Blood Urea Nitrogen 7 mg/dL (7-17); Calcium 8.8 mg/dL (8.4-10.2); Hemolysis Index 3
[2017-11-24] MEDS: HEPARIN SUB-Q SCH ×2 (10:21→23:00)
[2017-11-24] MEDS: ASPIRIN PO SCH (10:21)
[2017-11-24] MEDS: ROCEPHIN/NS 1 GM/50 ML 1 GM/50 ML BAG IV SCH (10:22)
--- NOTE | 2017-11-24 11:57 | Progress Note ---
Assessment and Plan Cardiac arrest with ROSC Syncope h/o Cardiomyopathy h/o substance abuse disorder. Aspiration pneumonitis -Transfer to telemetry -Replete electrolytes -Keep K>4 and Magnesium at 2 -Mobility -Cardio-protective measures -Substance abuse counselling -Monitor off antibiotics, suspect this is aspiration pneumonitis. Discontinue Ceftriaxone -prn bronchodilators -Supplemental oxygen as indicated for O2 sats<88% Subjective Date of service: 11/24/17 Interval history: Follow up: s/p cardiac arrest with ROSC, syncope, substance abuse disorder Seen and examined. Vitals, labs, medications, chart reviewed. No acute overnight events. Consulted nursing staff Telemetry shows a paced rhythm. She denies any shortness of breath, no fevers or chills. No nausea, no diarrhea. She feels much better Ambulating in the room, has chest pain which she attributes to chest compression. Objective Vital Signs - 12hr 11/24/17 11/24/17 11/24/17 00:00 00:10 00:20 Temperature Pulse Rate 77 75 77 Respiratory 11 L 12 12 Rate Blood Pressure 116/72 120/66 120/66 O2 Sat by Pulse 98 99 99 Oximetry 11/24/17 11/24/17 11/24/17 00:30 00:40 00:50 Temperature Pulse Rate 78 81 76 Respiratory 12 12 11 L Rate Blood Pressure 120/66 116/72 116/72 O2 Sat by Pulse 99 99 99 Oximetry 11/24/17 11/24/17 11/24/17 01:00 01:10 01:20 Temperature Pulse Rate 75 80 73 Respiratory 12 14 12 Rate Blood Pressure 111/74 111/74 111/74 O2 Sat by Pulse 99 100 100 Oximetry 11/24/17 11/24/17 11/24/17 01:30 01:40 01:50 Temperature Pulse Rate 80 77 75 Respiratory 11 L 13 12 Rate Blood Pressure 111/74 111/74 111/74 O2 Sat by Pulse 99 100 100 Oximetry 11/24/17 11/24/17 11/24/17 02:00 02:10 02:20 Temperature Pulse Rate 74 77 81 Respiratory 12 12 12 Rate Blood Pressure 100/66 100/66 100/66 O2 Sat by Pulse 100 100 100 Oximetry 11/24/17 11/24/17 11/24/17 02:30 02:40 02:50 Temperature Pulse Rate 81 81 75 Respiratory 14 12 12 Rate Blood Pressure 100/66 100/66 100/66 O2 Sat by Pulse 100 100 99 Oximetry 11/24/17 11/24/17 11/24/17 03:00 03:10 03:20 Temperature Pulse Rate 79 73 72 Respiratory 23 14 12 Rate Blood Pressure 100/66 116/72 116/72 O2 Sat by Pulse 95 96 98 Oximetry 11/24/17 11/24/17 11/24/17 03:30 03:40 03:50 Temperature Pulse Rate 72 80 73 Respiratory 14 14 13 Rate Blood Pressure 116/72 116/72 116/72 O2 Sat by Pulse 98 97 98 Oximetry 11/24/17 11/24/17 11/24/17 04:00 04:10 04:20 Temperature Pulse Rate 73 76 75 Respiratory 12 13 13 Rate Blood Pressure 116/72 119/75 119/75 O2 Sat by Pulse 98 98 99 Oximetry 11/24/17 11/24/17 11/24/17 04:30 04:40 04:50 Temperature Pulse Rate 79 85 Respiratory 15 12 Rate Blood Pressure 119/75 119/75 119/75 O2 Sat by Pulse 97 97 94 Oximetry 11/24/17 11/24/17 11/24/17 05:00 05:10 05:20 Temperature Pulse Rate 78 81 76 Respiratory Rate Blood Pressure 120/71 120/71 120/71 O2 Sat by Pulse 97 98 99 Oximetry 11/24/17 11/24/17 11/24/17 05:30 05:40 05:50 Temperature Pulse Rate 78 89 77 Respiratory Rate Blood Pressure 120/71 120/71 120/71 O2 Sat by Pulse 100 97 98 Oximetry 11/24/17 11/24/17 11/24/17 06:00 06:10 06:53 Temperature Pulse Rate 88 83 Respiratory Rate Blood Pressure 120/73 120/73 O2 Sat by Pulse 98 99 99 Oximetry 11/24/17 08:00 Temperature 98.3 F Pulse Rate Respiratory Rate Blood Pressure O2 Sat by Pulse Oximetry Constitutional: no acute distress, other Eyes: non-icteric ENT: oropharynx moist Neck: supple, no lymphadenopathy Effort: normal Ascultation: Bilateral: clear Cardiovascular: regular rate and rhythm, other (paced) Gastrointestinal: normoactive bowel sounds, soft, non-tender, non-distended Integumentary: normal Extremities: no cyanosis, no edema, pink and warm Neurologic: normal mental status, non-focal exam Psychiatric: mood appropriate, affect normal CBC and BMP: 11/25/17 04:33 11/25/17 04:33 ABG, PT/INR, D-dimer: PT/INR, D-dimer PT 14.1 Sec. (12.2-14.9) 11/23/17 00:39 INR 1.04 (0.87-1.13) 11/23/17 00:39 D-Dimer 558.12 ng/mlDDU (0-234) H 11/23/17 15:00 Abnormal lab findings: Abnormal Labs 11/23/17 11/23/17 11/23/17 00:37 00:37 05:48 WBC 12.2 H RBC 3.59 L MCH 33 H [place] % (Auto) 8.2 H [place] # 1.0 H Seg Neutrophils % 71.8 H Seg Neutrophils # 8.8 H D-Dimer Potassium 2.8 L* Carbon Dioxide Creatinine Glucose 124 H Total Creatine Kinase 530 H CK-MB (CK-2) 5.9 H 11/23/17 11/23/17 11/24/17 15:00 15:00 07:17 WBC RBC MCH [place] % (Auto) [place] # Seg Neutrophils % Seg Neutrophils # D-Dimer 558.12 H Potassium Carbon Dioxide 20 L Creatinine 0.6 L 0.5 L Glucose 120 H 110 H Total Creatine Kinase CK-MB (CK-2) Allied health notes reviewed: nursing
--- NOTE | 2017-11-24 12:39 | Progress Note ---
Assessment and Plan Assessment and plan: S/p cardiopulmonary arrest. Patient with successful resuscitation. Continue per cardiology recommendations. -Alexandre negative for AMI. ECG shows NAF. -Attempt to obtain [facility] records. -Echocardiogram revealed left ventricular systolic function severely decreased with EF of 20-25%. Right ventricular global systolic function is normal. Right ventricular systolic pressure is calculated at 50 mmHg with evidence of moderate pulmonary hypertension -Interrogate AICD Pulmonary hypertension. Cardiomyopathy with AICD in situ. As above History of EtOH/cocaine abuse. Continue withdrawal protocols. Pneumonia. Likely aspiration secondary from cardiopulmonary arrest. Cont. IV antibiotic and follow-up serial chest x-ray Hypokalemia. Replete potassium as needed. History Interval history: The pt is a 57 YO female with a past medical history of cardiomyopathy, ? AICD in situ (placed 09/2017), ETOH abuse, cocaine use, tobacco use. She is regularly followed by [facility]. She does not recall the events which lead to her hospitalization. She works for [employer] and was found unresponsive after reported possible fall at work. Per EMS, bystander started CPR and applied AED which applied one shock. On EMS arrival, patient was without a pulse another shock applied per EMS. Return of spontaneous circulation achieved per EMS. On arrival to ED, pt was responding to commands and moving all extremities but aphasic. Presently, pt is A&O with no current cardiac complaints. Pt denies any prior CAD, AMI or arrhythmias. She does not remember the events leading up to her admission. Hospitalist Physical - Constitutional Vitals: Temp Pulse Resp BP Pulse Ox 98.3 F 98 H 12 114/77 92 11/24/17 08:00 11/24/17 12:30 11/24/17 04:40 11/24/17 12:30 11/24/17 12:30 General appearance: Present: no acute distress - EENT Eyes: Present: PERRL, EOM intact ENT: hearing intact, clear oral mucosa, dentition normal - Neck Neck: Present: supple, normal ROM - Respiratory Respiratory effort: normal Respiratory: bilateral: CTA - Cardiovascular Rhythm: regular Heart Sounds: Present: S1 & S2. Absent: gallop, rub - Extremities Extremities: no ischemia, No edema, Full ROM - Abdominal General gastrointestinal: soft, non-tender, non-distended, normal bowel sounds - Integumentary Integumentary: Present: clear, warm, dry - Neurologic Neurologic: CNII-XII intact, moves all extremities Results - Labs CBC & Chem 7: 11/23/17 00:37 11/24/17 07:17 Labs: Laboratory Last Values WBC 12.2 K/mm3 (4.5-11.0) H 11/23/17 00:37 RBC 3.59 M/mm3 (3.65-5.03) L 11/23/17 00:37 Hgb 11.9 gm/dl (10.1-14.3) 11/23/17 00:37 Hct 34.7 % (30.3-42.9) 11/23/17 00:37 MCV 97 fl (79-97) 11/23/17 00:37 MCH 33 pg (28-32) H 11/23/17 00:37 MCHC 34 % (30-34) 11/23/17 00:37 RDW 14.4 % (13.2-15.2) 11/23/17 00:37 Plt Count 163 K/mm3 (140-440) 11/23/17 00:37 Lymph % (Auto) 18.3 % (13.4-35.0) 11/23/17 00:37 [place] % (Auto) 8.2 % (0.0-7.3) H 11/23/17 00:37 Eos % (Auto) 1.4 % (0.0-4.3) 11/23/17 00:37 Baso % (Auto) 0.3 % (0.0-1.8) 11/23/17 00:37 Lymph # 2.2 K/mm3 (1.2-5.4) 11/23/17 00:37 [place] # 1.0 K/mm3 (0.0-0.8) H 11/23/17 00:37 Eos # 0.2 K/mm3 (0.0-0.4) 11/23/17 00:37 Baso # 0.0 K/mm3 (0.0-0.1) 11/23/17 00:37 Seg Neutrophils % 71.8 % (40.0-70.0) H 11/23/17 00:37 Seg Neutrophils # 8.8 K/mm3 (1.8-7.7) H 11/23/17 00:37 PT 14.1 Sec. (12.2-14.9) 11/23/17 00:39 INR 1.04 (0.87-1.13) 11/23/17 00:39 APTT 29.2 Sec. (24.2-36.6) 11/23/17 00:39 Thrombin Time 15.5 Sec. (15.1-19.6) 11/23/17 00:39 D-Dimer 558.12 ng/mlDDU (0-234) H 11/23/17 15:00 Sodium 137 mmol/L (137-145) 11/24/17 07:17 Potassium 4.0 mmol/L (3.6-5.0) 11/24/17 07:17 Chloride 103.2 mmol/L (98-107) 11/24/17 07:17 Carbon Dioxide 24 mmol/L (22-30) 11/24/17 07:17 Anion Gap 14 mmol/L 11/24/17 07:17 BUN 7 mg/dL (7-17) 11/24/17 07:17 Creatinine 0.5 mg/dL (0.7-1.2) L 11/24/17 07:17 Estimated GFR > 60 ml/min 11/24/17 07:17 BUN/Creatinine Ratio 14 % 11/24/17 07:17 Glucose 110 mg/dL (65-100) H 11/24/17 07:17 Calcium 8.8 mg/dL (8.4-10.2) 11/24/17 07:17 Magnesium 1.70 mg/dL (1.7-2.3) 11/23/17 05:48 Total Creatine Kinase 530 units/L (30-135) H 11/23/17 05:48 CK-MB (CK-2) 5.9 ng/mL (0.0-4.0) H 11/23/17 05:48 CK-MB (CK-2) Rel Index 1.1 (0-4) 11/23/17 05:48 Troponin T 0.022 ng/mL (0.00-0.029) 11/23/17 05:48 Urine Opiates Screen Presumptive negative 11/23/17 21:34 Urine Methadone Screen Presumptive negative 11/23/17 21:34 Ur Barbiturates Screen Presumptive negative 11/23/17 21:34 Ur Phencyclidine Scrn Presumptive negative 11/23/17 21:34 Ur Amphetamines Screen Presumptive negative 11/23/17 21:34 U Benzodiazepines Scrn Presumptive negative 11/23/17 21:34 Urine Cocaine Screen Presumptive negative 11/23/17 21:34 U Marijuana (THC) Screen Presumptive negative 11/23/17 21:34 Drugs of Abuse Note Disclamer 11/23/17 21:34
--- NOTE | 2017-11-24 12:45 | Progress Note ---
Assessment and Plan Echo reviewed - EF 20-25%, mild to mod TR, mod pulm HTN with RVSP 58mmHg, mild MR, pacemaker wire in RV. Initiate low dose coreg and lisinopril in setting of CMP. Attempt to obtain [facility] records. Interrogate AICD - we are still trying to identify which company the device belongs to as the pt does not know. All device companies have been called and none have any record of the pt with current name and . Pt denies use of any other name and/or . we have called [facility] and are awaiting return call. Currently stable cardiac status. Pt may tx out of ICU to telemetry from cardiology standpoint. The patient has been seen in conjunction with Dr. Mcgregor who agrees with the assessment and plan of care. - Patient Problems (1) Cardiac arrest with successful resuscitation Current Visit: Yes Status: Acute (2) History of cardiomyopathy Current Visit: Yes Status: Chronic (3) Automatic implantable cardioverter-defibrillator in situ Current Visit: Yes Status: Chronic (4) History of ETOH abuse Current Visit: Yes Status: Chronic (5) History of cocaine abuse Current Visit: Yes Status: Chronic (6) Tobacco use Current Visit: Yes Status: Chronic (7) Pneumonia Current Visit: Yes Status: Suspected (8) Hypokalemia Current Visit: Yes Status: Acute Subjective Date of service: 11/24/17 Principal diagnosis: cardiac arrest Interval history: pt resting comfortably in bed, c/o chest soreness secondary to CPR. Objective Last Vital Signs Temp 98.3 F 11/24/17 08:00 Pulse 98 H 11/24/17 12:30 Resp 12 11/24/17 04:40 BP 114/77 11/24/17 12:30 Pulse Ox 92 11/24/17 12:30 - Physical Examination General: No Apparent Distress HEENT: Positive: PERRL, Normocephaly, Mucus Membranes Moist Neck: Positive: neck supple, trachea midline Cardiac: Positive: Reg Rate and Rhythm, S1/S2 Lungs: Positive: clear to auscultation Neuro: Positive: Grossly Intact Abdomen: Positive: Soft. Negative: Tender Skin: Positive: Clear. Negative: Rash, Wound Musculoskeletal: No Pain Extremities: Absent: edema - Labs and Meds Comprehensive Metabolic Panel 11/23/17 11/24/17 Range/Units 15:00 07:17 Sodium 137 137 (137-145) mmol/L Potassium 4.3 D 4.0 (3.6-5.0) mmol/L Chloride 101.4 103.2 (98-107) mmol/L Carbon Dioxide 20 L 24 (22-30) mmol/L BUN 8 7 (7-17) mg/dL Creatinine 0.6 L 0.5 L (0.7-1.2) mg/dL Glucose 120 H 110 H (65-100) mg/dL Calcium 9.1 8.8 (8.4-10.2) mg/dL - Imaging and Cardiology EKG: report reviewed, image reviewed Echo: pending - EKG Ventricular dysrhythmias: ventricular premature com Pacemaker: atrial pacing w/capture - Allied health notes Allied health notes reviewed: nursing
[2017-11-24] MEDS: COREG PO SCH (22:59)
[2017-11-25 05:16] LABS: Basophils % (Auto) 0.5 % (0.0-1.8); Eosinophils # (Auto) 0.2 K/mm3 (0.0-0.4); Hematocrit 31.2 % (30.3-42.9); Hemoglobin 10.6 gm/dl (10.1-14.3); Lymphocytes # (Auto) 1.9 K/mm3 (1.2-5.4); Lymphocytes % (Auto) 21.2 % (13.4-35.0); Mean Corpuscular HGB Conc 34 % (30-34); Mean Corpuscular Hemoglobin 33 pg (28-32); Mean Corpuscular Volume 96 fl (79-97); Monocytes # (Auto) 0.9 K/mm3 (0.0-0.8); Monocytes % (Auto) 10.4 % (0.0-7.3); Platelet Count 144 K/mm3 (140-440); Red Blood Count 3.25 M/mm3 (3.65-5.03); Red Cell Distribution Width 13.8 % (13.2-15.2)
[2017-11-25 05:54] LABS: BUN/Creatinine Ratio 15; Blood Urea Nitrogen 9 mg/dL (7-17); Calcium 9.2 mg/dL (8.4-10.2); Hemolysis Index 1
--- NOTE | 2017-11-25 10:00 | Progress Note ---
Assessment and Plan Echo findings discussed with pt. She does report a history of "weak heart" and states that she underwent heart cath at [facility] although she does not remember the results of this study. She denies any known history of CAD, AMI or PCI. I have requested [facility] records for the second time. Pt states this AM that her device is a pacemaker, not AICD. We are still trying to identify which company the device belongs to as the pt does not know. All device companies have been called and none have any record of the pt with current name and . Pt denies use of any other name and/or . we have called [facility] and are awaiting return call. The patient has been seen in conjunction with Dr. Mcgregor who agrees with the assessment and plan of care. - Patient Problems (1) Cardiac arrest with successful resuscitation Current Visit: Yes Status: Acute (2) History of cardiomyopathy Current Visit: Yes Status: Chronic (3) Automatic implantable cardioverter-defibrillator in situ Current Visit: Yes Status: Chronic (4) History of ETOH abuse Current Visit: Yes Status: Chronic (5) History of cocaine abuse Current Visit: Yes Status: Chronic (6) Tobacco use Current Visit: Yes Status: Chronic (7) Pneumonia Current Visit: Yes Status: Suspected (8) Hypokalemia Current Visit: Yes Status: Acute Subjective Date of service: 11/25/17 Principal diagnosis: cardiac arrest Interval history: pt resting comfortably in bed, c/o chest soreness secondary to CPR. Objective Last Vital Signs Temp 98.8 F 11/25/17 07:31 Pulse 93 H 11/25/17 07:31 Resp 16 11/25/17 07:31 BP 127/84 11/25/17 07:31 Pulse Ox 97 11/25/17 07:31 - Physical Examination General: No Apparent Distress HEENT: Positive: PERRL, Normocephaly, Mucus Membranes Moist Neck: Positive: neck supple, trachea midline Cardiac: Positive: Reg Rate and Rhythm, S1/S2 Lungs: Positive: clear to auscultation Neuro: Positive: Grossly Intact Abdomen: Positive: Soft. Negative: Tender Skin: Positive: Clear. Negative: Rash, Wound Musculoskeletal: No Pain Extremities: Absent: edema - Labs and Meds CBC 11/25/17 Range/Units 04:33 WBC 9.0 (4.5-11.0) K/mm3 RBC 3.25 L (3.65-5.03) M/mm3 Hgb 10.6 (10.1-14.3) gm/dl Hct 31.2 (30.3-42.9) % Plt Count 144 (140-440) K/mm3 Lymph # 1.9 (1.2-5.4) K/mm3 [place] # 0.9 H (0.0-0.8) K/mm3 Eos # 0.2 (0.0-0.4) K/mm3 Baso # 0.0 (0.0-0.1) K/mm3 Comprehensive Metabolic Panel 11/25/17 Range/Units 04:33 Sodium 138 (137-145) mmol/L Potassium 4.2 (3.6-5.0) mmol/L Chloride 102.8 (98-107) mmol/L Carbon Dioxide 25 (22-30) mmol/L BUN 9 (7-17) mg/dL Creatinine 0.6 L (0.7-1.2) mg/dL Glucose 113 H (65-100) mg/dL Calcium 9.2 (8.4-10.2) mg/dL - Imaging and Cardiology EKG: report reviewed, image reviewed Echo: report reviewed (EF 20-25%, mild to mod TR, mod pulm HTN with RVSP 58mmHg , mild MR, pacemaker wire in RV.) - Telemetry EKG Rhythm: Paced - EKG Ventricular dysrhythmias: ventricular premature com Pacemaker: atrial pacing w/capture - Allied health notes Allied health notes reviewed: nursing
[2017-11-25] MEDS: HEPARIN SUB-Q SCH ×2 (11:15→21:36)
[2017-11-25] MEDS: BABY ASPIRIN PO SCH (11:15)
[2017-11-25] MEDS: COREG PO SCH ×2 (11:15→21:36)
[2017-11-25] MEDS: ZESTRIL PO SCH (11:16)
[2017-11-25] MEDS: MORPHINE IV PRN ×2 (11:17→17:38)
--- NOTE | 2017-11-25 12:07 | Progress Note ---
Assessment and Plan Assessment and plan: S/p cardiopulmonary arrest. Patient with successful resuscitation. Continue per cardiology recommendations. -Alexandre negative for AMI. ECG shows NAF. -Attempt to obtain [facility] records. -Echocardiogram revealed left ventricular systolic function severely decreased with EF of 20-25%. Right ventricular global systolic function is normal. Right ventricular systolic pressure is calculated at 50 mmHg with evidence of moderate pulmonary hypertension -Interrogate AICD Pulmonary hypertension. Cardiomyopathy with AICD in situ. As above History of EtOH/cocaine abuse. Continue withdrawal protocols. Pneumonia. Likely aspiration secondary from cardiopulmonary arrest. Cont. IV antibiotic and follow-up serial chest x-ray Hypokalemia. Replete potassium as needed. History Interval history: The pt is a 57 YO female with a past medical history of cardiomyopathy, ? AICD in situ (placed 09/2017), ETOH abuse, cocaine use, tobacco use. She is regularly followed by [facility]. She does not recall the events which lead to her hospitalization. She works for [employer] and was found unresponsive after reported possible fall at work. Per EMS, bystander started CPR and applied AED which applied one shock. On EMS arrival, patient was without a pulse another shock applied per EMS. Return of spontaneous circulation achieved per EMS. On arrival to ED, pt was responding to commands and moving all extremities but aphasic. Presently, pt is A&O with no current cardiac complaints. Pt denies any prior CAD, AMI or arrhythmias. She does not remember the events leading up to her admission. Hospitalist Physical - Constitutional Vitals: Temp Pulse Resp BP Pulse Ox 98.8 F 93 H 16 127/84 97 11/25/17 07:31 11/25/17 07:31 11/25/17 07:31 11/25/17 07:31 11/25/17 07:31 General appearance: Present: no acute distress - EENT Eyes: Present: PERRL, EOM intact ENT: hearing intact, clear oral mucosa, dentition normal - Neck Neck: Present: supple, normal ROM - Respiratory Respiratory effort: normal Respiratory: bilateral: CTA - Cardiovascular Rhythm: regular Heart Sounds: Present: S1 & S2. Absent: gallop, rub - Extremities Extremities: no ischemia, No edema, Full ROM - Abdominal General gastrointestinal: soft, non-tender, non-distended, normal bowel sounds - Integumentary Integumentary: Present: clear, warm, dry - Neurologic Neurologic: CNII-XII intact, moves all extremities Results - Labs CBC & Chem 7: 11/25/17 04:33 11/25/17 04:33 Labs: Laboratory Last Values WBC 9.0 K/mm3 (4.5-11.0) 11/25/17 04:33 RBC 3.25 M/mm3 (3.65-5.03) L 11/25/17 04:33 Hgb 10.6 gm/dl (10.1-14.3) 11/25/17 04:33 Hct 31.2 % (30.3-42.9) 11/25/17 04:33 MCV 96 fl (79-97) 11/25/17 04:33 MCH 33 pg (28-32) H 11/25/17 04:33 MCHC 34 % (30-34) 11/25/17 04:33 RDW 13.8 % (13.2-15.2) 11/25/17 04:33 Plt Count 144 K/mm3 (140-440) 11/25/17 04:33 Lymph % (Auto) 21.2 % (13.4-35.0) 11/25/17 04:33 [place] % (Auto) 10.4 % (0.0-7.3) H 11/25/17 04:33 Eos % (Auto) 2.0 % (0.0-4.3) 11/25/17 04:33 Baso % (Auto) 0.5 % (0.0-1.8) 11/25/17 04:33 Lymph # 1.9 K/mm3 (1.2-5.4) 11/25/17 04:33 [place] # 0.9 K/mm3 (0.0-0.8) H 11/25/17 04:33 Eos # 0.2 K/mm3 (0.0-0.4) 11/25/17 04:33 Baso # 0.0 K/mm3 (0.0-0.1) 11/25/17 04:33 Seg Neutrophils % 65.9 % (40.0-70.0) 11/25/17 04:33 Seg Neutrophils # 5.9 K/mm3 (1.8-7.7) 11/25/17 04:33 PT 14.1 Sec. (12.2-14.9) 11/23/17 00:39 INR 1.04 (0.87-1.13) 11/23/17 00:39 APTT 29.2 Sec. (24.2-36.6) 11/23/17 00:39 Thrombin Time 15.5 Sec. (15.1-19.6) 11/23/17 00:39 D-Dimer 558.12 ng/mlDDU (0-234) H 11/23/17 15:00 Sodium 138 mmol/L (137-145) 11/25/17 04:33 Potassium 4.2 mmol/L (3.6-5.0) 11/25/17 04:33 Chloride 102.8 mmol/L (98-107) 11/25/17 04:33 Carbon Dioxide 25 mmol/L (22-30) 11/25/17 04:33 Anion Gap 14 mmol/L 11/25/17 04:33 BUN 9 mg/dL (7-17) 11/25/17 04:33 Creatinine 0.6 mg/dL (0.7-1.2) L 11/25/17 04:33 Estimated GFR > 60 ml/min 11/25/17 04:33 BUN/Creatinine Ratio 15 % 11/25/17 04:33 Glucose 113 mg/dL (65-100) H 11/25/17 04:33 Calcium 9.2 mg/dL (8.4-10.2) 11/25/17 04:33 Magnesium 1.70 mg/dL (1.7-2.3) 11/23/17 05:48 Total Creatine Kinase 530 units/L (30-135) H 11/23/17 05:48 CK-MB (CK-2) 5.9 ng/mL (0.0-4.0) H 11/23/17 05:48 CK-MB (CK-2) Rel Index 1.1 (0-4) 11/23/17 05:48 Troponin T 0.022 ng/mL (0.00-0.029) 11/23/17 05:48 Urine Opiates Screen Presumptive negative 11/23/17 21:34 Urine Methadone Screen Presumptive negative 11/23/17 21:34 Ur Barbiturates Screen Presumptive negative 11/23/17 21:34 Ur Phencyclidine Scrn Presumptive negative 10/16/18 21:34 Ur Amphetamines Screen Presumptive negative 11/23/17 21:34 U Benzodiazepines Scrn Presumptive negative 11/23/17 21:34 Urine Cocaine Screen Presumptive negative 11/23/17 21:34 U Marijuana (THC) Screen Presumptive negative 11/23/17 21:34 Drugs of Abuse Note Disclamer 11/23/17 21:34
--- NOTE | 2017-11-25 13:44 | Progress Note ---
Assessment and Plan Patient resting on room air. O2 saturation 98%.Patient complaining right sided chest pain from compressions.No acute respiratory distress. - Patient Problems (1) Cardiac arrest with successful resuscitation Current Visit: Yes Status: Acute Plan to address problem: Patient alert, awake. Resting on room air.O2 saturation 98%. (2) TIA (transient ischemic attack) Current Visit: Yes Status: Acute Plan to address problem: Management as per primary care and neurology. (3) Automatic implantable cardioverter-defibrillator in situ Current Visit: Yes Status: Chronic Plan to address problem: Management as per primary care. (4) History of ETOH abuse Current Visit: Yes Status: Chronic Plan to address problem: Counselled to stop drinking alcohol. (5) History of cardiomyopathy Current Visit: Yes Status: Chronic Plan to address problem: Management as per cardiology. (6) History of cocaine abuse Current Visit: Yes Status: Chronic Plan to address problem: Counselled stop using cocain. (7) Tobacco use Current Visit: Yes Status: Chronic Plan to address problem: Counselled to stop smoking. (8) Pulmonary infiltrate in right lung on CXR Current Visit: Yes Status: Acute Plan to address problem: Patient afebrile No Leukocytosis Denies cough or shortness of breath. Subjective Date of service: 11/25/17 Principal diagnosis: cardiac arrest Interval history: Patient resting on room air. O2 saturation 98%.Patient complaining right sided chest pain from compressions.No acute respiratory distress. Objective Vital Signs - 12hr 11/25/17 11/25/17 04:20 07:31 Temperature 98.8 F Pulse Rate 47 L 93 H Respiratory 16 Rate Blood Pressure 108/78 127/84 O2 Sat by Pulse 92 97 Oximetry Constitutional: no acute distress, alert, other Eyes: non-icteric ENT: oropharynx moist Neck: supple, no lymphadenopathy Effort: normal Ascultation: Bilateral: clear Cardiovascular: regular rate and rhythm, other (paced) Gastrointestinal: normoactive bowel sounds, soft, non-tender, non-distended Integumentary: normal Extremities: no cyanosis, no edema, pink and warm Neurologic: normal mental status, non-focal exam Psychiatric: mood appropriate, affect normal CBC and BMP: 11/25/17 04:33 11/25/17 04:33 ABG, PT/INR, D-dimer: PT/INR, D-dimer PT 14.1 Sec. (12.2-14.9) 11/23/17 00:39 INR 1.04 (0.87-1.13) 11/23/17 00:39 D-Dimer 558.12 ng/mlDDU (0-234) H 11/23/17 15:00 Abnormal lab findings: Abnormal Labs 11/23/17 11/23/17 11/23/17 00:37 00:37 05:48 WBC 12.2 H RBC 3.59 L MCH 33 H [place] % (Auto) 8.2 H [place] # 1.0 H Seg Neutrophils % 71.8 H Seg Neutrophils # 8.8 H D-Dimer Potassium 2.8 L* Carbon Dioxide Creatinine Glucose 124 H Total Creatine Kinase 530 H CK-MB (CK-2) 5.9 H 11/23/17 11/23/17 11/24/17 15:00 15:00 07:17 WBC RBC MCH [place] % (Auto) [place] # Seg Neutrophils % Seg Neutrophils # D-Dimer 558.12 H Potassium Carbon Dioxide 20 L Creatinine 0.6 L 0.5 L Glucose 120 H 110 H Total Creatine Kinase CK-MB (CK-2) 11/25/17 11/25/17 04:33 04:33 WBC RBC 3.25 L MCH 33 H [place] % (Auto) 10.4 H [place] # 0.9 H Seg Neutrophils % Seg Neutrophils # D-Dimer Potassium Carbon Dioxide Creatinine 0.6 L Glucose 113 H Total Creatine Kinase CK-MB (CK-2) Chest x-ray: report reviewed (Infiltrate right lung.), image reviewed Allied health notes reviewed: nursing
--- NOTE | 2017-11-26 09:54 | Progress Note ---
Assessment and Plan Assessment and plan: S/p cardiopulmonary arrest. Patient with successful resuscitation. Continue per cardiology recommendations. -Alexander negative for AMI. ECG shows NAF. -Attempt to obtain [facility] records. -Echocardiogram revealed left ventricular systolic function severely decreased with EF of 20-25%. Right ventricular global systolic function is normal. Right ventricular systolic pressure is calculated at 50 mmHg with evidence of moderate pulmonary hypertension -Interrogate AICD Pulmonary hypertension. Cardiomyopathy with AICD in situ. As above History of EtOH/cocaine abuse. Continue withdrawal protocols. Pneumonia. Likely aspiration secondary from cardiopulmonary arrest. Cont. IV antibiotic and follow-up serial chest x-ray Hypokalemia. Replete potassium as needed. History Interval history: The pt is a 57 YO female with a past medical history of cardiomyopathy, ? AICD in situ (placed 09/2017), ETOH abuse, cocaine use, tobacco use. She is regularly followed by [facility]. She does not recall the events which lead to her hospitalization. She works for [employer] and was found unresponsive after reported possible fall at work. Per EMS, bystander started CPR and applied AED which applied one shock. On EMS arrival, patient was without a pulse another shock applied per EMS. Return of spontaneous circulation achieved per EMS. On arrival to ED, pt was responding to commands and moving all extremities but aphasic. Presently, pt is A&O with no current cardiac complaints. Pt denies any prior CAD, AMI or arrhythmias. She does not remember the events leading up to her admission. Hospitalist Physical - Constitutional Vitals: Temp Pulse Resp BP Pulse Ox 98.7 F 93 H 18 120/80 97 11/26/17 07:43 11/26/17 07:43 11/26/17 07:43 11/26/17 07:43 11/26/17 08:37 General appearance: Present: no acute distress - EENT Eyes: Present: PERRL, EOM intact ENT: hearing intact, clear oral mucosa, dentition normal - Neck Neck: Present: supple, normal ROM - Respiratory Respiratory effort: normal Respiratory: bilateral: CTA - Cardiovascular Rhythm: regular Heart Sounds: Present: S1 & S2. Absent: gallop, rub - Extremities Extremities: no ischemia, No edema, Full ROM - Abdominal General gastrointestinal: soft, non-tender, non-distended, normal bowel sounds - Integumentary Integumentary: Present: clear, warm, dry - Neurologic Neurologic: CNII-XII intact, moves all extremities Results - Labs CBC & Chem 7: 11/25/17 04:33 11/25/17 04:33 Labs: Laboratory Last Values WBC 9.0 K/mm3 (4.5-11.0) 11/25/17 04:33 RBC 3.25 M/mm3 (3.65-5.03) L 11/25/17 04:33 Hgb 10.6 gm/dl (10.1-14.3) 11/25/17 04:33 Hct 31.2 % (30.3-42.9) 11/25/17 04:33 MCV 96 fl (79-97) 11/25/17 04:33 MCH 33 pg (28-32) H 11/25/17 04:33 MCHC 34 % (30-34) 11/25/17 04:33 RDW 13.8 % (13.2-15.2) 11/25/17 04:33 Plt Count 144 K/mm3 (140-440) 11/25/17 04:33 Lymph % (Auto) 21.2 % (13.4-35.0) 11/25/17 04:33 [place] % (Auto) 10.4 % (0.0-7.3) H 11/25/17 04:33 Eos % (Auto) 2.0 % (0.0-4.3) 11/25/17 04:33 Baso % (Auto) 0.5 % (0.0-1.8) 11/25/17 04:33 Lymph # 1.9 K/mm3 (1.2-5.4) 11/25/17 04:33 [place] # 0.9 K/mm3 (0.0-0.8) H 11/25/17 04:33 Eos # 0.2 K/mm3 (0.0-0.4) 11/25/17 04:33 Baso # 0.0 K/mm3 (0.0-0.1) 11/25/17 04:33 Seg Neutrophils % 65.9 % (40.0-70.0) 11/25/17 04:33 Seg Neutrophils # 5.9 K/mm3 (1.8-7.7) 11/25/17 04:33 PT 14.1 Sec. (12.2-14.9) 11/23/17 00:39 INR 1.04 (0.87-1.13) 11/23/17 00:39 APTT 29.2 Sec. (24.2-36.6) 11/23/17 00:39 Thrombin Time 15.5 Sec. (15.1-19.6) 11/23/17 00:39 D-Dimer 558.12 ng/mlDDU (0-234) H 11/23/17 15:00 Sodium 138 mmol/L (137-145) 11/25/17 04:33 Potassium 4.2 mmol/L (3.6-5.0) 11/25/17 04:33 Chloride 102.8 mmol/L (98-107) 11/25/17 04:33 Carbon Dioxide 25 mmol/L (22-30) 11/25/17 04:33 Anion Gap 14 mmol/L 11/25/17 04:33 BUN 9 mg/dL (7-17) 11/25/17 04:33 Creatinine 0.6 mg/dL (0.7-1.2) L 11/25/17 04:33 Estimated GFR > 60 ml/min 11/25/17 04:33 BUN/Creatinine Ratio 15 % 11/25/17 04:33 Glucose 113 mg/dL (65-100) H 11/25/17 04:33 Calcium 9.2 mg/dL (8.4-10.2) 11/25/17 04:33 Magnesium 1.70 mg/dL (1.7-2.3) 11/23/17 05:48 Total Creatine Kinase 530 units/L (30-135) H 11/23/17 05:48 CK-MB (CK-2) 5.9 ng/mL (0.0-4.0) H 11/23/17 05:48 CK-MB (CK-2) Rel Index 1.1 (0-4) 11/23/17 05:48 Troponin T 0.022 ng/mL (0.00-0.029) 11/23/17 05:48 Urine Opiates Screen Presumptive negative 11/23/17 21:34 Urine Methadone Screen Presumptive negative 11/23/17 21:34 Ur Barbiturates Screen Presumptive negative 11/23/17 21:34 Ur Phencyclidine Scrn Presumptive negative 10/16/18 21:34 Ur Amphetamines Screen Presumptive negative 11/23/17 21:34 U Benzodiazepines Scrn Presumptive negative 11/23/17 21:34 Urine Cocaine Screen Presumptive negative 11/23/17 21:34 U Marijuana (THC) Screen Presumptive negative 11/23/17 21:34 Drugs of Abuse Note Disclamer 11/23/17 21:34
[2017-11-26] MEDS: HEPARIN SUB-Q SCH (12:03)
[2017-11-26] MEDS: ZESTRIL PO SCH (12:04)
[2017-11-26] MEDS: COREG PO SCH ×2 (12:04→22:55)
[2017-11-26] MEDS: BABY ASPIRIN PO SCH (12:05)
--- NOTE | 2017-11-26 13:38 | Progress Note ---
Assessment and Plan [facility] records received - pt has [employer] pacemaker which was placed in 09/2017 for complete heart block. She has a history of NICMP with EF 20% in 2016 improved to 50% in May 2017. She did not receive AICD in 09/2017 in setting of normalized EF. She underwent LHC 09/2017 which showed luminal irregularities, long 30% proximal stenosis of left main. Echo done 09/2017 showed EF 50-55%. Will interrogate PPM. Also, given recent reduction in EF, will repeat ischemic evaluation - will plan for lexiscan MPI stress test in AM. Lastly, pt may require LifeVest placement pending PPM interrogation results. Assessment and plan reviewed with pt at bedside. The patient has been seen in conjunction with Dr. Mcgregor who agrees with the assessment and plan of care. - Patient Problems (1) Cardiac arrest with successful resuscitation Current Visit: Yes Status: Acute (2) History of cardiomyopathy Current Visit: Yes Status: Chronic (3) Automatic implantable cardioverter-defibrillator in situ Current Visit: Yes Status: Chronic (4) History of ETOH abuse Current Visit: Yes Status: Chronic (5) History of cocaine abuse Current Visit: Yes Status: Chronic (6) Tobacco use Current Visit: Yes Status: Chronic (7) Pneumonia Current Visit: Yes Status: Suspected (8) Hypokalemia Current Visit: Yes Status: Acute Subjective Date of service: 11/26/17 Principal diagnosis: cardiac arrest Interval history: pt resting comfortably in bed, c/o chest soreness secondary to CPR. Objective Last Vital Signs Temp 97.9 F 11/26/17 11:14 Pulse 87 11/26/17 11:14 Resp 18 11/26/17 11:14 BP 115/79 11/26/17 11:14 Pulse Ox 100 11/26/17 11:14 - Physical Examination General: No Apparent Distress HEENT: Positive: PERRL, Normocephaly, Mucus Membranes Moist Neck: Positive: neck supple, trachea midline Cardiac: Positive: Reg Rate and Rhythm, S1/S2 Lungs: Positive: clear to auscultation Neuro: Positive: Grossly Intact Abdomen: Positive: Soft. Negative: Tender Skin: Positive: Clear. Negative: Rash, Wound Musculoskeletal: No Pain Extremities: Absent: edema - Imaging and Cardiology EKG: report reviewed, image reviewed Echo: report reviewed (EF 20-25%, mild to mod TR, mod pulm HTN with RVSP 58mmHg , mild MR, pacemaker wire in RV.) - Telemetry EKG Rhythm: Sinus Rhythm - EKG Ventricular dysrhythmias: ventricular premature com Pacemaker: atrial pacing w/capture - Allied health notes Allied health notes reviewed: nursing
--- NOTE | 2017-11-26 15:51 | Event Note ---
Date: 11/26/17 PPM interrogation reveals 5min 30sec run of ventricular fibrillation which corresponds to pt's syncopal episode/cardiac arrest in the field. Cancel stress test. Pt may require coronary angiogram. Additionally, pt may require upgrade of PPM to AICD. Malachi d/w EP. Samantha ESPITIA NP / DR. ACOSTA
--- NOTE | 2017-11-26 18:22 | Progress Note ---
Assessment and Plan Patient resting on room air. O2 saturation 100%.Patient complaining right sided chest pain from compressions.No acute respiratory distress.Patient having episodes of ventricular fibrillation. Cardiology following. - Patient Problems (1) Cardiac arrest with successful resuscitation Current Visit: Yes Status: Acute Plan to address problem: Patient alert, awake. Resting on room air.O2 saturation 100%. (2) TIA (transient ischemic attack) Current Visit: Yes Status: Acute Plan to address problem: Management as per primary care and neurology. (3) Automatic implantable cardioverter-defibrillator in situ Current Visit: Yes Status: Chronic Plan to address problem: Management as per primary care. (4) History of ETOH abuse Current Visit: Yes Status: Chronic Plan to address problem: Counselled to stop drinking alcohol. (5) History of cardiomyopathy Current Visit: Yes Status: Chronic Plan to address problem: Management as per cardiology. (6) History of cocaine abuse Current Visit: Yes Status: Chronic Plan to address problem: Counselled stop using cocain. (7) Tobacco use Current Visit: Yes Status: Chronic Plan to address problem: Counselled to stop smoking. (8) Pulmonary infiltrate in right lung on CXR Current Visit: Yes Status: Acute Plan to address problem: Patient afebrile No Leukocytosis Denies cough or shortness of breath. Subjective Date of service: 11/26/17 Principal diagnosis: cardiac arrest Interval history: Patient resting on room air. O2 saturation 100%.Patient complaining right sided chest pain from compressions.No acute respiratory distress.Patient having episodes of ventricular fibrillation. Cardiology following. Objective Vital Signs - 12hr 11/26/17 11/26/17 11/26/17 07:39 07:43 08:37 Temperature 97.8 F 98.7 F Pulse Rate 93 H 93 H Respiratory 18 18 Rate Blood Pressure 120/80 120/80 [Left] O2 Sat by Pulse 100 100 97 Oximetry 11/26/17 11:14 Temperature 97.9 F Pulse Rate 87 Respiratory 18 Rate Blood Pressure 115/79 [Left] O2 Sat by Pulse 100 Oximetry Constitutional: no acute distress, alert, other Eyes: non-icteric ENT: oropharynx moist Neck: supple, no lymphadenopathy Effort: normal Ascultation: Bilateral: clear Cardiovascular: regular rate and rhythm, other (paced) Gastrointestinal: normoactive bowel sounds, soft, non-tender, non-distended Integumentary: normal Extremities: no cyanosis, no edema, pink and warm Neurologic: normal mental status, non-focal exam Psychiatric: mood appropriate, affect normal CBC and BMP: 11/25/17 04:33 11/25/17 04:33 ABG, PT/INR, D-dimer: PT/INR, D-dimer PT 14.1 Sec. (12.2-14.9) 11/23/17 00:39 INR 1.04 (0.87-1.13) 11/23/17 00:39 D-Dimer 558.12 ng/mlDDU (0-234) H 11/23/17 15:00 Abnormal lab findings: Abnormal Labs 11/23/17 11/23/17 11/23/17 00:37 00:37 05:48 WBC 12.2 H RBC 3.59 L MCH 33 H [place] % (Auto) 8.2 H [place] # 1.0 H Seg Neutrophils % 71.8 H Seg Neutrophils # 8.8 H D-Dimer Potassium 2.8 L* Carbon Dioxide Creatinine Glucose 124 H Total Creatine Kinase 530 H CK-MB (CK-2) 5.9 H 11/23/17 11/23/17 11/24/17 15:00 15:00 07:17 WBC RBC MCH [place] % (Auto) [place] # Seg Neutrophils % Seg Neutrophils # D-Dimer 558.12 H Potassium Carbon Dioxide 20 L Creatinine 0.6 L 0.5 L Glucose 120 H 110 H Total Creatine Kinase CK-MB (CK-2) 11/25/17 11/25/17 04:33 04:33 WBC RBC 3.25 L MCH 33 H [place] % (Auto) 10.4 H [place] # 0.9 H Seg Neutrophils % Seg Neutrophils # D-Dimer Potassium Carbon Dioxide Creatinine 0.6 L Glucose 113 H Total Creatine Kinase CK-MB (CK-2) Allied health notes reviewed: nursing
[2017-11-27] MEDS: HEPARIN SUB-Q SCH ×3 (00:55→21:50)
--- NOTE | 2017-11-27 08:41 | Progress Note ---
Assessment and Plan cardiac arrest history of ppm for CHB cardiomyopathy acute on chronic shf rec: reviewed records from [place] in which patient has a history of cardiomyopathy but was in complete heart block and echocardiogram that revealed normal LV function and a permanent pacemaker placed repeat echocardiogram after cardiac arrest reveals EF 20 to 25% patient will repeat coronary angiogram on Wednesday and possible different replacement on Wednesday if coronaries are normal as well as low dose digoxin for better heart rate control patient's blood pressure is low and is on low-dose Coreg and lisinopril Subjective Date of service: 11/27/17 Principal diagnosis: cardiac arrest Interval history: pt has no complaints Objective Vital Signs Temp Pulse Resp BP BP Pulse Ox 11/27/17 07:57 97.7 F 78 18 119/76 100 11/27/17 04:11 98.5 F 89 20 124/82 96 11/27/17 00:04 97.8 F 79 20 126/88 99 11/26/17 20:00 20 11/26/17 19:36 97.8 F 83 20 106/76 96 11/26/17 18:58 98.0 F 94 H 18 120/80 98 11/26/17 11:14 97.9 F 87 18 115/79 100 11/26/17 10:00 72 - Physical Examination General: No Apparent Distress HEENT: Positive: PERRL, Normocephaly, Mucus Membranes Moist Neck: Positive: neck supple, trachea midline Cardiac: Positive: Reg Rate and Rhythm Lungs: Positive: clear to auscultation Neuro: Positive: Grossly Intact Abdomen: Positive: Soft. Negative: Tender Skin: Positive: Clear. Negative: Rash, Wound Musculoskeletal: No Pain Extremities: Absent: edema - Imaging and Cardiology EKG: report reviewed, image reviewed Echo: report reviewed (EF 20-25%, mild to mod TR, mod pulm HTN with RVSP 58mmHg , mild MR, pacemaker wire in RV.) Cardiac cath: report reviewed (2017 patent coronaries and ef 25%, ) - Telemetry EKG Rhythm: Paced - EKG Ventricular dysrhythmias: ventricular premature com Pacemaker: atrial pacing w/capture - Allied health notes Allied health notes reviewed: nursing
[2017-11-27] MEDS: ZESTRIL PO SCH (09:53)
[2017-11-27] MEDS: COREG PO SCH ×2 (09:53→21:50)
[2017-11-27] MEDS: BABY ASPIRIN PO SCH (09:53)
--- NOTE | 2017-11-27 14:15 | Progress Note ---
Assessment and Plan Assessment and plan: S/p V-fib arrest. Patient with successful resuscitation. Continue per cardiology recommendations. -Alexandre negative for AMI. ECG shows NAF. -Echocardiogram revealed left ventricular systolic function severely decreased with EF of 20-25%. Right ventricular global systolic function is normal. Right ventricular systolic pressure is calculated at 50 mmHg with evidence of moderate pulmonary hypertension -PPM interrogation reveals 5min 30sec run of ventricular fibrillation which corresponds to pt's syncopal episode/cardiac arrest in the field. -Coronary angiogram on Wednesday and possible AICD replacement on Wednesday if coronaries are normal -Cards started low dose digoxin for better heart rate control patient's blood pressure is low and is on low-dose Coreg and lisinopril Pulmonary hypertension. Cardiomyopathy. As above History of EtOH/cocaine abuse. Continue withdrawal protocols. Pneumonia. Likely aspiration secondary from cardiopulmonary arrest. Cont. IV antibiotic and follow-up serial chest x-ray Hypokalemia. Replete potassium as needed. History Interval history: The pt is a 57 YO female with a past medical history of cardiomyopathy, ? AICD in situ (placed 09/2017), ETOH abuse, cocaine use, tobacco use. She is regularly followed by [facility]. She does not recall the events which lead to her hospitalization. She works for [employer] and was found unresponsive after reported possible fall at work. Per EMS, bystander started CPR and applied AED which applied one shock. On EMS arrival, patient was without a pulse another shock applied per EMS. Return of spontaneous circulation achieved per EMS. On arrival to ED, pt was responding to commands and moving all extremities but aphasic. Presently, pt is A&O with no current cardiac complaints. Pt denies any prior CAD, AMI or arrhythmias. She does not remember the events leading up to her admission. Hospitalist Physical - Constitutional Vitals: Temp Pulse Resp BP Pulse Ox 98.3 F 74 20 119/78 99 11/27/17 11:45 11/27/17 11:45 11/27/17 11:45 11/27/17 11:45 11/27/17 11:45 General appearance: Present: no acute distress - EENT Eyes: Present: PERRL, EOM intact ENT: hearing intact, clear oral mucosa, dentition normal - Neck Neck: Present: supple, normal ROM - Respiratory Respiratory effort: normal Respiratory: bilateral: CTA - Cardiovascular Rhythm: regular Heart Sounds: Present: S1 & S2. Absent: gallop, rub - Extremities Extremities: no ischemia, No edema, Full ROM - Abdominal General gastrointestinal: soft, non-tender, non-distended, normal bowel sounds - Integumentary Integumentary: Present: clear, warm, dry - Neurologic Neurologic: CNII-XII intact, moves all extremities Results - Labs CBC & Chem 7: 11/25/17 04:33 11/25/17 04:33 Labs: Laboratory Last Values WBC 9.0 K/mm3 (4.5-11.0) 11/25/17 04:33 RBC 3.25 M/mm3 (3.65-5.03) L 11/25/17 04:33 Hgb 10.6 gm/dl (10.1-14.3) 11/25/17 04:33 Hct 31.2 % (30.3-42.9) 11/25/17 04:33 MCV 96 fl (79-97) 11/25/17 04:33 MCH 33 pg (28-32) H 11/25/17 04:33 MCHC 34 % (30-34) 11/25/17 04:33 RDW 13.8 % (13.2-15.2) 11/25/17 04:33 Plt Count 144 K/mm3 (140-440) 11/25/17 04:33 Lymph % (Auto) 21.2 % (13.4-35.0) 11/25/17 04:33 [place] % (Auto) 10.4 % (0.0-7.3) H 11/25/17 04:33 Eos % (Auto) 2.0 % (0.0-4.3) 11/25/17 04:33 Baso % (Auto) 0.5 % (0.0-1.8) 11/25/17 04:33 Lymph # 1.9 K/mm3 (1.2-5.4) 11/25/17 04:33 [place] # 0.9 K/mm3 (0.0-0.8) H 11/25/17 04:33 Eos # 0.2 K/mm3 (0.0-0.4) 11/25/17 04:33 Baso # 0.0 K/mm3 (0.0-0.1) 11/25/17 04:33 Seg Neutrophils % 65.9 % (40.0-70.0) 11/25/17 04:33 Seg Neutrophils # 5.9 K/mm3 (1.8-7.7) 11/25/17 04:33 PT 14.1 Sec. (12.2-14.9) 11/23/17 00:39 INR 1.04 (0.87-1.13) 11/23/17 00:39 APTT 29.2 Sec. (24.2-36.6) 11/23/17 00:39 Thrombin Time 15.5 Sec. (15.1-19.6) 11/23/17 00:39 D-Dimer 558.12 ng/mlDDU (0-234) H 11/23/17 15:00 Sodium 138 mmol/L (137-145) 11/25/17 04:33 Potassium 4.2 mmol/L (3.6-5.0) 11/25/17 04:33 Chloride 102.8 mmol/L (98-107) 11/25/17 04:33 Carbon Dioxide 25 mmol/L (22-30) 11/25/17 04:33 Anion Gap 14 mmol/L 11/25/17 04:33 BUN 9 mg/dL (7-17) 11/25/17 04:33 Creatinine 0.6 mg/dL (0.7-1.2) L 11/25/17 04:33 Estimated GFR > 60 ml/min 11/25/17 04:33 BUN/Creatinine Ratio 15 % 11/25/17 04:33 Glucose 113 mg/dL (65-100) H 11/25/17 04:33 Calcium 9.2 mg/dL (8.4-10.2) 11/25/17 04:33 Magnesium 1.70 mg/dL (1.7-2.3) 11/23/17 05:48 Total Creatine Kinase 530 units/L (30-135) H 11/23/17 05:48 CK-MB (CK-2) 5.9 ng/mL (0.0-4.0) H 11/23/17 05:48 CK-MB (CK-2) Rel Index 1.1 (0-4) 11/23/17 05:48 Troponin T 0.022 ng/mL (0.00-0.029) 11/23/17 05:48 TSH 2.910 mlU/mL (0.270-4.200) 11/26/17 17:13 Free T4 1.24 ng/dL (0.76-1.46) 11/26/17 17:13 Urine Opiates Screen Presumptive negative 11/23/17 21:34 Urine Methadone Screen Presumptive negative 11/23/17 21:34 Ur Barbiturates Screen Presumptive negative 11/23/17 21:34 Ur Phencyclidine Scrn Presumptive negative 11/23/17 21:34 Ur Amphetamines Screen Presumptive negative 11/23/17 21:34 U Benzodiazepines Scrn Presumptive negative 11/23/17 21:34 Urine Cocaine Screen Presumptive negative 11/23/17 21:34 U Marijuana (THC) Screen Presumptive negative 11/23/17 21:34 Drugs of Abuse Note Disclamer 11/23/17 21:34
[2017-11-27] MEDS: LANOXIN PO SCH (17:02)
[2017-11-28] MEDS: MORPHINE IV PRN ×2 (00:34→22:38)
--- NOTE | 2017-11-28 05:22 | Progress Note ---
Assessment and Plan Cardiac arrest with ROSC Syncope h/o Cardiomyopathy h/o substance abuse disorder. Aspiration pneumonitis Cardiomyopathy EF 25% on recent Echo -Replete electrolytes -Keep K>4 and Magnesium at 2 -Mobility -Cardio-protective measures -Substance abuse counselling -prn bronchodilators -Supplemental oxygen as indicated for O2 sats<88% -[facility] in the morning Subjective Date of service: 11/28/17 Principal diagnosis: cardiac arrest Interval history: Follow up: s/p cardiac arrest with ROSC, syncope, substance abuse disorder Seen and examined. Vitals, labs, medications, chart reviewed. No acute overnight events. Consulted nursing staff She denies any shortness of breath, no fevers or chills. No nausea, no diarrhea. She feels much better Ambulating in the room, has chest pain which she attributes to chest compression. For [facility] tomorrow per Cardiology Objective Vital Signs - 12hr 11/27/17 11/27/17 11/27/17 19:50 19:57 20:31 Temperature 98.4 F Pulse Rate 94 H 81 Pulse Rate [ Right Radial] Respiratory 20 Rate Respiratory 17 Rate [ Generalized] Blood Pressure 125/87 O2 Sat by Pulse 98 Oximetry 11/27/17 11/27/17 11/28/17 21:50 22:00 00:34 Temperature Pulse Rate 81 Pulse Rate [ 90 Right Radial] Respiratory 18 17 Rate Respiratory Rate [ Generalized] Blood Pressure 125/87 O2 Sat by Pulse Oximetry 11/28/17 11/28/17 00:46 01:04 Temperature 98.1 F Pulse Rate 71 Pulse Rate [ Right Radial] Respiratory 20 17 Rate Respiratory Rate [ Generalized] Blood Pressure 120/86 O2 Sat by Pulse 97 Oximetry Constitutional: no acute distress, alert, other Eyes: non-icteric ENT: oropharynx moist Neck: supple, no lymphadenopathy Effort: normal Ascultation: Bilateral: clear Cardiovascular: regular rate and rhythm, other (paced) Gastrointestinal: normoactive bowel sounds, soft, non-tender, non-distended Integumentary: normal Extremities: no cyanosis, no edema, pink and warm Neurologic: normal mental status, non-focal exam Psychiatric: mood appropriate, affect normal CBC and BMP: 11/25/17 04:33 11/25/17 04:33 ABG, PT/INR, D-dimer: PT/INR, D-dimer PT 14.1 Sec. (12.2-14.9) 11/23/17 00:39 INR 1.04 (0.87-1.13) 11/23/17 00:39 D-Dimer 558.12 ng/mlDDU (0-234) H 11/23/17 15:00 Abnormal lab findings: Abnormal Labs 11/23/17 11/23/17 11/23/17 00:37 00:37 05:48 WBC 12.2 H RBC 3.59 L MCH 33 H [place] % (Auto) 8.2 H [place] # 1.0 H Seg Neutrophils % 71.8 H Seg Neutrophils # 8.8 H D-Dimer Potassium 2.8 L* Carbon Dioxide Creatinine Glucose 124 H Total Creatine Kinase 530 H CK-MB (CK-2) 5.9 H 11/23/17 11/23/17 11/24/17 15:00 15:00 07:17 WBC RBC MCH [place] % (Auto) [place] # Seg Neutrophils % Seg Neutrophils # D-Dimer 558.12 H Potassium Carbon Dioxide 20 L Creatinine 0.6 L 0.5 L Glucose 120 H 110 H Total Creatine Kinase CK-MB (CK-2) 11/25/17 11/25/17 04:33 04:33 WBC RBC 3.25 L MCH 33 H [place] % (Auto) 10.4 H [place] # 0.9 H Seg Neutrophils % Seg Neutrophils # D-Dimer Potassium Carbon Dioxide Creatinine 0.6 L Glucose 113 H Total Creatine Kinase CK-MB (CK-2) Allied health notes reviewed: nursing
[2017-11-28] MEDS: COREG PO SCH ×2 (09:15→22:29)
[2017-11-28] MEDS: TYLENOL PO PRN (09:16)
[2017-11-28] MEDS: BABY ASPIRIN PO SCH (09:16)
[2017-11-28] MEDS: HEPARIN SUB-Q SCH ×2 (09:17→22:29)
--- NOTE | 2017-11-28 10:16 | Progress Note ---
Assessment and Plan cardiac arrest history of ppm for CHB cardiomyopathy acute on chronic shf rec: reviewed records from [place] in which patient has a history of cardiomyopathy but was in complete heart block and echocardiogram that revealed normal LV function and a permanent pacemaker placed repeat echocardiogram after cardiac arrest reveals EF 20 to 25% patient will repeat coronary angiogram on Wednesday and possible different replacement on Wednesday if coronaries are normal as well as low dose digoxin for better heart rate control patient's blood pressure is low and is on low-dose Coreg and lisinopril Subjective Date of service: 11/28/17 Principal diagnosis: cardiac arrest Interval history: pt has no palpations and no sob Objective Vital Signs Temp Pulse Pulse Resp Resp BP BP 11/28/17 10:00 76 11/28/17 09:15 84 115/79 11/28/17 09:03 97.5 F L 84 16 115/79 11/28/17 04:49 97.8 F 37 L 20 117/75 11/28/17 01:04 17 11/28/17 00:46 98.1 F 71 20 120/86 11/28/17 00:34 17 11/27/17 22:00 90 18 11/27/17 21:50 81 125/87 11/27/17 20:31 98.4 F 81 20 125/87 11/27/17 19:57 94 H 11/27/17 19:50 17 11/27/17 17:12 98.5 F 71 18 121/64 11/27/17 17:02 72 11/27/17 11:45 98.3 F 74 20 119/78 Pulse Ox 11/28/17 10:00 11/28/17 09:15 11/28/17 09:03 99 11/28/17 04:49 96 11/28/17 01:04 11/28/17 00:46 97 11/28/17 00:34 11/27/17 22:00 11/27/17 21:50 11/27/17 20:31 98 11/27/17 19:57 11/27/17 19:50 11/27/17 17:12 98 11/27/17 17:02 11/27/17 11:45 99 - Physical Examination General: No Apparent Distress HEENT: Positive: PERRL, Normocephaly, Mucus Membranes Moist Neck: Positive: neck supple, trachea midline Cardiac: Positive: Reg Rate and Rhythm Lungs: Positive: clear to auscultation Neuro: Positive: Grossly Intact Abdomen: Positive: Soft. Negative: Tender Skin: Positive: Clear. Negative: Rash, Wound Musculoskeletal: No Pain Extremities: Absent: edema - Imaging and Cardiology EKG: report reviewed, image reviewed Echo: report reviewed (EF 20-25%, mild to mod TR, mod pulm HTN with RVSP 58mmHg , mild MR, pacemaker wire in RV.) Cardiac cath: report reviewed (2017 patent coronaries and ef 25%, ) - Telemetry EKG Rhythm: Paced - EKG Ventricular dysrhythmias: ventricular premature com Pacemaker: atrial pacing w/capture - Allied health notes Allied health notes reviewed: nursing
[2017-11-28] MEDS: ZESTRIL PO SCH (10:34)
--- NOTE | 2017-11-28 10:40 | Progress Note ---
Assessment and Plan Assessment and plan: S/p V-fib arrest. Patient with successful resuscitation. Continue per cardiology recommendations. -Alexandre negative for AMI. ECG shows NAF. -Echocardiogram revealed left ventricular systolic function severely decreased with EF of 20-25%. Right ventricular global systolic function is normal. Right ventricular systolic pressure is calculated at 50 mmHg with evidence of moderate pulmonary hypertension -PPM interrogation reveals 5min 30sec run of ventricular fibrillation which corresponds to pt's syncopal episode/cardiac arrest in the field. -Coronary angiogram on Wednesday and possible AICD replacement on Wednesday if coronaries are normal -Cards started low dose digoxin for better heart rate control patient's blood pressure is low and is on low-dose Coreg and lisinopril Pulmonary hypertension. Cardiomyopathy. As above History of EtOH/cocaine abuse. Continue withdrawal protocols. Pneumonia. Likely aspiration secondary from cardiopulmonary arrest. Cont. IV antibiotic and follow-up serial chest x-ray Hypokalemia. Replete potassium as needed. History Interval history: The pt is a 57 YO female with a past medical history of cardiomyopathy, ? AICD in situ (placed 09/2017), ETOH abuse, cocaine use, tobacco use. She is regularly followed by [facility]. She does not recall the events which lead to her hospitalization. She works for [employer] and was found unresponsive after reported possible fall at work. Per EMS, bystander started CPR and applied AED which applied one shock. On EMS arrival, patient was without a pulse another shock applied per EMS. Return of spontaneous circulation achieved per EMS. On arrival to ED, pt was responding to commands and moving all extremities but aphasic. Presently, pt is A&O with no current cardiac complaints. Pt denies any prior CAD, AMI or arrhythmias. She does not remember the events leading up to her admission. Hospitalist Physical - Constitutional Vitals: Temp Pulse Resp BP Pulse Ox 97.5 F L 84 16 115/79 99 11/28/17 09:03 11/28/17 10:34 11/28/17 09:03 11/28/17 10:34 11/28/17 09:03 General appearance: Present: no acute distress - EENT Eyes: Present: PERRL, EOM intact ENT: hearing intact, clear oral mucosa, dentition normal - Neck Neck: Present: supple, normal ROM - Respiratory Respiratory effort: normal Respiratory: bilateral: CTA - Cardiovascular Rhythm: regular Heart Sounds: Present: S1 & S2. Absent: gallop, rub - Extremities Extremities: no ischemia, No edema, Full ROM - Abdominal General gastrointestinal: soft, non-tender, non-distended, normal bowel sounds - Integumentary Integumentary: Present: clear, warm, dry - Neurologic Neurologic: CNII-XII intact, moves all extremities Results - Labs CBC & Chem 7: 11/25/17 04:33 11/25/17 04:33 Labs: Laboratory Last Values WBC 9.0 K/mm3 (4.5-11.0) 11/25/17 04:33 RBC 3.25 M/mm3 (3.65-5.03) L 11/25/17 04:33 Hgb 10.6 gm/dl (10.1-14.3) 11/25/17 04:33 Hct 31.2 % (30.3-42.9) 11/25/17 04:33 MCV 96 fl (79-97) 11/25/17 04:33 MCH 33 pg (28-32) H 11/25/17 04:33 MCHC 34 % (30-34) 11/25/17 04:33 RDW 13.8 % (13.2-15.2) 11/25/17 04:33 Plt Count 144 K/mm3 (140-440) 11/25/17 04:33 Lymph % (Auto) 21.2 % (13.4-35.0) 11/25/17 04:33 [place] % (Auto) 10.4 % (0.0-7.3) H 11/25/17 04:33 Eos % (Auto) 2.0 % (0.0-4.3) 11/25/17 04:33 Baso % (Auto) 0.5 % (0.0-1.8) 11/25/17 04:33 Lymph # 1.9 K/mm3 (1.2-5.4) 11/25/17 04:33 [place] # 0.9 K/mm3 (0.0-0.8) H 11/25/17 04:33 Eos # 0.2 K/mm3 (0.0-0.4) 11/25/17 04:33 Baso # 0.0 K/mm3 (0.0-0.1) 11/25/17 04:33 Seg Neutrophils % 65.9 % (40.0-70.0) 11/25/17 04:33 Seg Neutrophils # 5.9 K/mm3 (1.8-7.7) 11/25/17 04:33 PT 14.1 Sec. (12.2-14.9) 11/23/17 00:39 INR 1.04 (0.87-1.13) 11/23/17 00:39 APTT 29.2 Sec. (24.2-36.6) 11/23/17 00:39 Thrombin Time 15.5 Sec. (15.1-19.6) 11/23/17 00:39 D-Dimer 558.12 ng/mlDDU (0-234) H 11/23/17 15:00 Sodium 138 mmol/L (137-145) 11/25/17 04:33 Potassium 4.2 mmol/L (3.6-5.0) 11/25/17 04:33 Chloride 102.8 mmol/L (98-107) 11/25/17 04:33 Carbon Dioxide 25 mmol/L (22-30) 11/25/17 04:33 Anion Gap 14 mmol/L 11/25/17 04:33 BUN 9 mg/dL (7-17) 11/25/17 04:33 Creatinine 0.6 mg/dL (0.7-1.2) L 11/25/17 04:33 Estimated GFR > 60 ml/min 11/25/17 04:33 BUN/Creatinine Ratio 15 % 11/25/17 04:33 Glucose 113 mg/dL (65-100) H 11/25/17 04:33 Calcium 9.2 mg/dL (8.4-10.2) 11/25/17 04:33 Magnesium 1.70 mg/dL (1.7-2.3) 11/23/17 05:48 Total Creatine Kinase 530 units/L (30-135) H 11/23/17 05:48 CK-MB (CK-2) 5.9 ng/mL (0.0-4.0) H 11/23/17 05:48 CK-MB (CK-2) Rel Index 1.1 (0-4) 11/23/17 05:48 Troponin T 0.022 ng/mL (0.00-0.029) 11/23/17 05:48 TSH 2.910 mlU/mL (0.270-4.200) 11/26/17 17:13 Free T4 1.24 ng/dL (0.76-1.46) 11/26/17 17:13 Urine Opiates Screen Presumptive negative 11/23/17 21:34 Urine Methadone Screen Presumptive negative 11/23/17 21:34 Ur Barbiturates Screen Presumptive negative 11/23/17 21:34 Ur Phencyclidine Scrn Presumptive negative 11/23/17 21:34 Ur Amphetamines Screen Presumptive negative 11/23/17 21:34 U Benzodiazepines Scrn Presumptive negative 11/23/17 21:34 Urine Cocaine Screen Presumptive negative 11/23/17 21:34 U Marijuana (THC) Screen Presumptive negative 11/23/17 21:34 Drugs of Abuse Note Disclamer 11/23/17 21:34
[2017-11-28] MEDS ORDERED: NACL 0.9% 500 ML 500 ML IV SCH (11:00)
[2017-11-28] MEDS: LANOXIN PO SCH (16:19)
[2017-11-28] MEDS: SODIUM CHLORIDE FLUSH SYRINGE 10 ML IV PRN (22:39)
[2017-11-29 07:02] LABS: Basophils % (Auto) 0.6 % (0.0-1.8); Eosinophils # (Auto) 0.2 K/mm3 (0.0-0.4); Eosinophils % (Auto) 3.3 % (0.0-4.3); Hematocrit 33.9 % (30.3-42.9); Hemoglobin 11.3 gm/dl (10.1-14.3); Lymphocytes # (Auto) 2.5 K/mm3 (1.2-5.4); Lymphocytes % (Auto) 35.9 % (13.4-35.0); Mean Corpuscular HGB Conc 34 % (30-34); Mean Corpuscular Hemoglobin 33 pg (28-32); Mean Corpuscular Volume 97 fl (79-97); Monocytes % (Auto) 13.9 % (0.0-7.3); Platelet Count 201 K/mm3 (140-440); Red Blood Count 3.48 M/mm3 (3.65-5.03); Red Cell Distribution Width 13.9 % (13.2-15.2)
[2017-11-29 07:14] LABS: INR 0.95 (0.87-1.13)
[2017-11-29 07:15] LABS: Partial Thromboplastin Time 36.5 Sec. (24.2-36.6)
[2017-11-29 07:19] LABS: BUN/Creatinine Ratio 20; Blood Urea Nitrogen 12 mg/dL (7-17); Calcium 9.8 mg/dL (8.4-10.2); Hemolysis Index 3
[2017-11-29] MEDS ORDERED: BABY ASPIRIN ONE (07:37)
[2017-11-29] MEDS: BABY ASPIRIN PO SCH ×2 (07:37→09:51)
[2017-11-29] MEDS ORDERED: NACL 0.9% 500 ML 500 ML ONE (08:21)
[2017-11-29] MEDS ORDERED: HEPARIN/NS 5000 UNIT/500ML(CATH LAB) 1,000 ML IR ONE (08:21)
[2017-11-29] MEDS ORDERED: VERSED ONE (08:22)
[2017-11-29] MEDS ORDERED: SUBLIMAZE ONE (08:22)
[2017-11-29] MEDS: CALAN ONE ×3 (08:24→09:23)
[2017-11-29] MEDS: HEPARIN 10,000 UNITS/10 ML ONE ×3 (08:25→09:23)
[2017-11-29] MEDS: XYLOCAINE 2% INFILTRATI ONE ×2 (09:10→09:22)
[2017-11-29] MEDS ORDERED: NACL 0.9% 0 ML ONE (09:23)
[2017-11-29] MEDS: HEPARIN SUB-Q SCH ×2 (09:50→23:11)
[2017-11-29] MEDS: COREG PO SCH ×2 (10:20→23:10)
[2017-11-29] MEDS: ZESTRIL PO SCH (10:21)
--- NOTE | 2017-11-29 10:22 | Cardiac Catherization Report ---
INDICATION FOR PROCEDURE: A 57-year-old -Stateless female with previous history of dilated cardiomyopathy, congestive heart failure with ejection fraction of 20% in 06/2016. Left heart catheterization was performed at that time. Repeat transthoracic echocardiogram done in 05/2017 showed ejection fraction to be 50-55%. Subsequently, she presented with a complete AV block requiring permanent pacemaker insertion on 09/23/2017. A permanent pacemaker was inserted on 09/23/2017. A dual chamber pacemaker was inserted. She presented this time to the Emergency Room at [facility] on 11/23/2017 with cardiac arrest. Evaluation of the pacemaker showed VF arrest that lasted many minutes. She recovered well. Presently cardiac catheterization is being performed prior to the insertion of a defibrillator to rule out underlying coronary disease. In the past, she was told she has 30% left main disease. The patient was explained of the procedure, potential complications and alternatives of therapy. DESCRIPTION OF PROCEDURE: The patient was brought to the catheterization laboratory in a fasting condition. The patient was prepared in standard fashion. Right wrist area was thoroughly cleansed with Betadine solution and sterile drapes were applied. "Time out"was carried out and the patient was sedated with IV Versed and fentanyl. Subsequently, local anesthesia was given in the right wrist area and 5-Tamazight slender sheath was introduced. A 5-Tamazight multipurpose catheter was used to obtain the angiograms of the left coronary artery in multiple views followed by angiograms of the right coronary artery and left ventriculogram was performed in GARVIN projection using hand injection. At the end of the procedure, catheter and sheath were removed and good hemostasis was achieved with pressure bandage. Patient was evaluated for moderate sedation,was felt to be appropriate candidate.Was monitored electrocardiographically,along with hemodynamic monitoring and pulse oximetry.Received sedation at 09:09 Am and ended at 09:29 AM.No untoward complications were noted. Following findings were noted: HEMODYNAMICS: 1. Opening aortic pressure was 114/69, left ventricular pressure 113/17, no gradient across the aortic valve, estimated ejection fraction 25-30%. 2. Left ventriculogram done in GARVIN projection showed moderately dilated left ventricle with diffuse hypokinesis, ejection fraction was felt to be around 25-30%. Only limited amount of dye was injected and mitral regurgitation could not be evaluated. 3. Right coronary artery dominant vessel arises normally from right coronary cusp, but angiographically smooth and normal. 4. Left coronary artery shows diffuse calcifications, particularly significant amount of calcium in the area of proximal circumflex; however, luminal diameter stenosis was only 30% in this area. Left main is large, smooth without any significant disease. Similarly, LAD and its branch are angiographically smooth with only minimal irregularities. Circumflex artery as mentioned above showed significant proximal circular calcification; however, no significant obstructive disease was noted, only 30% smooth lesion was noted. Rest of the circumflex artery and its branch are angiographically smooth and normal 5. Collaterals none. FINAL IMPRESSION: 1. Moderately dilated left ventricle with significant left ventricular dysfunction, ejection fraction in the range of 25-30%. 2. Only mild coronary disease with some calcification in the proximal part of the circumflex artery. At this time, considering the above angiographic pictures, continue risk factor modification and aggressive medical therapy in addition to upgrading pacemaker to BiV ICD. At this time, the patient tolerated the procedure well. No untoward complications were noted. Good hemostasis was achieved with radial band. Findings were explained to the patient and the patient was transferred to the room in stable condition. JOB# [id number] CORNELIA/ISRAEL WARNER
--- NOTE | 2017-11-29 10:57 | Progress Note ---
Assessment and Plan S/p [facility] this AM which showed mild CAD with some calcification in the prox part of the circ, mod dilated LV, EF 25-50%. Plan for PPM upgrade to BiV AICD tomorrow at approx 3:30PM. Indications, potential risks and benefits of procedure reviewed with pt and she is agreeable to proceed. NPO after MN. The patient has been seen in conjunction with Dr. Montoya who agrees with the assessment and plan of care. - Patient Problems (1) Cardiac arrest with ventricular fibrillation Current Visit: Yes Status: Acute (2) Nonischemic cardiomyopathy Current Visit: Yes Status: Chronic (3) Nonobstructive atherosclerosis of coronary artery Current Visit: Yes Status: Chronic (4) Cardiac pacemaker in situ Current Visit: Yes Status: Chronic (5) History of ETOH abuse Current Visit: Yes Status: Chronic (6) History of cocaine abuse Current Visit: Yes Status: Chronic (7) Tobacco use Current Visit: Yes Status: Chronic (8) Hypokalemia Current Visit: Yes Status: Acute Subjective Date of service: 11/29/17 Principal diagnosis: cardiac arrest Interval history: pt s/p [facility] this AM, no current cardiac complaints. Objective Last Vital Signs Temp 98.1 F 11/29/17 10:10 Pulse 61 11/29/17 10:21 Resp 17 11/29/17 10:10 BP 112/73 11/29/17 10:21 Pulse Ox 98 11/29/17 10:10 - Physical Examination General: No Apparent Distress HEENT: Positive: PERRL, Normocephaly, Mucus Membranes Moist Neck: Positive: neck supple, trachea midline Cardiac: Positive: Reg Rate and Rhythm, S1/S2 Lungs: Positive: clear to auscultation Neuro: Positive: Grossly Intact Abdomen: Positive: Soft. Negative: Tender Skin: Positive: Clear. Negative: Rash, Wound Musculoskeletal: No Pain Extremities: Absent: edema - Labs and Meds Coagulation 11/29/17 Range/Units 04:19 PT 13.2 (12.2-14.9) Sec. INR 0.95 (0.87-1.13) APTT 36.5 (24.2-36.6) Sec. CBC 11/29/17 Range/Units 04:19 WBC 7.0 (4.5-11.0) K/mm3 RBC 3.48 L (3.65-5.03) M/mm3 Hgb 11.3 (10.1-14.3) gm/dl Hct 33.9 (30.3-42.9) % Plt Count 201 (140-440) K/mm3 Lymph # 2.5 (1.2-5.4) K/mm3 [place] # 1.0 H (0.0-0.8) K/mm3 Eos # 0.2 (0.0-0.4) K/mm3 Baso # 0.0 (0.0-0.1) K/mm3 Comprehensive Metabolic Panel 11/29/17 Range/Units 04:19 Sodium 137 (137-145) mmol/L Potassium 4.4 (3.6-5.0) mmol/L Chloride 97.1 L (98-107) mmol/L Carbon Dioxide 26 (22-30) mmol/L BUN 12 (7-17) mg/dL Creatinine 0.6 L (0.7-1.2) mg/dL Glucose 86 (65-100) mg/dL Calcium 9.8 (8.4-10.2) mg/dL - Imaging and Cardiology EKG: report reviewed, image reviewed Echo: report reviewed (EF 20-25%, mild to mod TR, mod pulm HTN with RVSP 58mmHg , mild MR, pacemaker wire in RV.) Cardiac cath: report reviewed (2016 patent coronaries and ef 25%, ) - EKG Ventricular dysrhythmias: ventricular premature com Pacemaker: atrial pacing w/capture - Allied health notes Allied health notes reviewed: nursing
--- NOTE | 2017-11-29 11:35 | Progress Note ---
Assessment and Plan Assessment and plan: S/p V-fib arrest. Patient with successful resuscitation. Continue per cardiology recommendations. -S/p [facility] this AM which showed mild CAD with some calcification in the prox part of the circ, mod dilated LV, EF 25-50%. Plan for PPM upgrade to AICD tomorrow. -Echocardiogram revealed left ventricular systolic function severely decreased with EF of 20-25%. Right ventricular global systolic function is normal. Right ventricular systolic pressure is calculated at 50 mmHg with evidence of moderate pulmonary hypertension -PPM interrogation revealed 5min 30sec run of ventricular fibrillation which corresponds to pt's syncopal episode/cardiac arrest in the field. -Cards started low dose digoxin for better heart rate control patient's blood pressure is low and is on low-dose Coreg and lisinopril Pulmonary hypertension. Cardiomyopathy. As above History of EtOH/cocaine abuse. Continue withdrawal protocols. Patient has been counseled on cessation. Aspiration Pneumonia. Resolved. Likely aspiration secondary from cardiopulmonary arrest. Completed course of antibiotics. Hypokalemia. Replete potassium as needed. History Interval history: The pt is a 57 YO female with a past medical history of cardiomyopathy, ? AICD in situ (placed 09/2017), ETOH abuse, cocaine use, tobacco use. She is regularly followed by [facility]. She does not recall the events which lead to her hospitalization. She works for [employer] and was found unresponsive after reported possible fall at work. Per EMS, bystander started CPR and applied AED which applied one shock. On EMS arrival, patient was without a pulse another shock applied per EMS. Return of spontaneous circulation achieved per EMS. On arrival to ED, pt was responding to commands and moving all extremities but aphasic. Presently, pt is A&O with no current cardiac complaints. Pt denies any prior CAD, AMI or arrhythmias. She does not remember the events leading up to her admission. PPD M interrogation revealed 5min 30sec run of ventricular fibrillation which corresponds to pt's syncopal episode /cardiac arrest in the field. The patient underwent LHC this AM which showed mild CAD with some calcification in the prox part of the circ, mod dilated LV, EF 25-50%. Hospitalist Physical - Constitutional Vitals: Temp Pulse Resp BP Pulse Ox 98.1 F 73 17 109/70 100 11/29/17 11:15 11/29/17 11:29 11/29/17 11:15 11/29/17 11:15 11/29/17 11:15 General appearance: Present: no acute distress - EENT Eyes: Present: PERRL, EOM intact ENT: hearing intact, clear oral mucosa, dentition normal - Neck Neck: Present: supple, normal ROM - Respiratory Respiratory effort: normal Respiratory: bilateral: CTA - Cardiovascular Rhythm: regular Heart Sounds: Present: S1 & S2. Absent: gallop, rub - Extremities Extremities: no ischemia, No edema, Full ROM - Abdominal General gastrointestinal: soft, non-tender, non-distended, normal bowel sounds - Integumentary Integumentary: Present: clear, warm, dry - Neurologic Neurologic: CNII-XII intact, moves all extremities Results - Labs CBC & Chem 7: 11/29/17 04:19 11/29/17 04:19 Labs: Laboratory Last Values WBC 7.0 K/mm3 (4.5-11.0) 11/29/17 04:19 RBC 3.48 M/mm3 (3.65-5.03) L 11/29/17 04:19 Hgb 11.3 gm/dl (10.1-14.3) 11/29/17 04:19 Hct 33.9 % (30.3-42.9) 11/29/17 04:19 MCV 97 fl (79-97) 11/29/17 04:19 MCH 33 pg (28-32) H 11/29/17 04:19 MCHC 34 % (30-34) 11/29/17 04:19 RDW 13.9 % (13.2-15.2) 11/29/17 04:19 Plt Count 201 K/mm3 (140-440) 11/29/17 04:19 Lymph % (Auto) 35.9 % (13.4-35.0) H 11/29/17 04:19 [place] % (Auto) 13.9 % (0.0-7.3) H 11/29/17 04:19 Eos % (Auto) 3.3 % (0.0-4.3) 11/29/17 04:19 Baso % (Auto) 0.6 % (0.0-1.8) 11/29/17 04:19 Lymph # 2.5 K/mm3 (1.2-5.4) 11/29/17 04:19 [place] # 1.0 K/mm3 (0.0-0.8) H 11/29/17 04:19 Eos # 0.2 K/mm3 (0.0-0.4) 11/29/17 04:19 Baso # 0.0 K/mm3 (0.0-0.1) 11/29/17 04:19 Seg Neutrophils % 46.3 % (40.0-70.0) 11/29/17 04:19 Seg Neutrophils # 3.3 K/mm3 (1.8-7.7) 11/29/17 04:19 PT 13.2 Sec. (12.2-14.9) 11/29/17 04:19 INR 0.95 (0.87-1.13) 11/29/17 04:19 APTT 36.5 Sec. (24.2-36.6) 11/29/17 04:19 Thrombin Time 15.5 Sec. (15.1-19.6) 11/23/17 00:39 D-Dimer 558.12 ng/mlDDU (0-234) H 11/23/17 15:00 Sodium 137 mmol/L (137-145) 11/29/17 04:19 Potassium 4.4 mmol/L (3.6-5.0) 11/29/17 04:19 Chloride 97.1 mmol/L (98-107) L 11/29/17 04:19 Carbon Dioxide 26 mmol/L (22-30) 11/29/17 04:19 Anion Gap 18 mmol/L 11/29/17 04:19 BUN 12 mg/dL (7-17) 11/29/17 04:19 Creatinine 0.6 mg/dL (0.7-1.2) L 11/29/17 04:19 Estimated GFR > 60 ml/min 11/29/17 04:19 BUN/Creatinine Ratio 20 % 11/29/17 04:19 Glucose 86 mg/dL (65-100) 11/29/17 04:19 POC Glucose 84 (70-105) 11/28/17 17:13 Calcium 9.8 mg/dL (8.4-10.2) 11/29/17 04:19 Magnesium 1.70 mg/dL (1.7-2.3) 11/23/17 05:48 Total Creatine Kinase 530 units/L (30-135) H 11/23/17 05:48 CK-MB (CK-2) 5.9 ng/mL (0.0-4.0) H 11/23/17 05:48 CK-MB (CK-2) Rel Index 1.1 (0-4) 11/23/17 05:48 Troponin T 0.022 ng/mL (0.00-0.029) 11/23/17 05:48 TSH 2.910 mlU/mL (0.270-4.200) 11/26/17 17:13 Free T4 1.24 ng/dL (0.76-1.46) 11/26/17 17:13 Urine Opiates Screen Presumptive negative 11/23/17 21:34 Urine Methadone Screen Presumptive negative 11/23/17 21:34 Ur Barbiturates Screen Presumptive negative 11/23/17 21:34 Ur Phencyclidine Scrn Presumptive negative 11/23/17 21:34 Ur Amphetamines Screen Presumptive negative 11/23/17 21:34 U Benzodiazepines Scrn Presumptive negative 11/23/17 21:34 Urine Cocaine Screen Presumptive negative 11/23/17 21:34 U Marijuana (THC) Screen Presumptive negative 11/23/17 21:34 Drugs of Abuse Note Disclamer 11/23/17 21:34
[2017-11-29] MEDS: LANOXIN PO SCH (17:07)
[2017-11-29] MEDS: COLACE PO SCH (23:10)
[2017-11-30] MEDS: MORPHINE IV PRN ×2 (00:43→10:29)
[2017-11-30 04:10] LABS: Basophils # (Auto) 0.1 K/mm3 (0.0-0.1); Basophils % (Auto) 1.1 % (0.0-1.8); Eosinophils # (Auto) 0.2 K/mm3 (0.0-0.4); Eosinophils % (Auto) 2.6 % (0.0-4.3); Hematocrit 34.8 % (30.3-42.9); Hemoglobin 11.7 gm/dl (10.1-14.3); Lymphocytes # (Auto) 2.4 K/mm3 (1.2-5.4); Lymphocytes % (Auto) 31.3 % (13.4-35.0); Mean Corpuscular HGB Conc 34 % (30-34); Mean Corpuscular Hemoglobin 32 pg (28-32); Mean Corpuscular Volume 96 fl (79-97); Monocytes # (Auto) 1.1 K/mm3 (0.0-0.8); Monocytes % (Auto) 14.5 % (0.0-7.3); Platelet Count 201 K/mm3 (140-440); Red Blood Count 3.61 M/mm3 (3.65-5.03); Red Cell Distribution Width 13.1 % (13.2-15.2)
[2017-11-30 04:20] LABS: INR 0.97 (0.87-1.13)
[2017-11-30 04:29] LABS: BUN/Creatinine Ratio 26; Blood Urea Nitrogen 13 mg/dL (7-17); Calcium 9.8 mg/dL (8.4-10.2); Hemolysis Index 19
[2017-11-30] MEDS: COLACE PO SCH ×2 (10:12→21:26)
[2017-11-30] MEDS: ZESTRIL PO SCH (10:13)
[2017-11-30] MEDS: COREG PO SCH ×2 (10:13→21:26)
--- NOTE | 2017-11-30 10:18 | Progress Note ---
Assessment and Plan Cont present management. For PPM upgrade to BiV AICD tomorrow at approx 3:30PM. The patient has been seen in conjunction with Dr. Montoya who agrees with the assessment and plan of care. - Patient Problems (1) Cardiac arrest with ventricular fibrillation Current Visit: Yes Status: Acute (2) Nonischemic cardiomyopathy Current Visit: Yes Status: Chronic (3) Nonobstructive atherosclerosis of coronary artery Current Visit: Yes Status: Chronic (4) Cardiac pacemaker in situ Current Visit: Yes Status: Chronic (5) History of ETOH abuse Current Visit: Yes Status: Chronic (6) History of cocaine abuse Current Visit: Yes Status: Chronic (7) Tobacco use Current Visit: Yes Status: Chronic (8) Hypokalemia Current Visit: Yes Status: Acute Subjective Date of service: 11/30/17 Principal diagnosis: cardiac arrest Interval history: pt resting in bed, no current cardiac complaints. awaiting AICD today. Objective Last Vital Signs Temp 97.8 F 11/30/17 08:00 Pulse 69 11/30/17 10:13 Resp 17 11/30/17 08:00 BP 125/89 11/30/17 10:13 Pulse Ox 97 11/30/17 08:00 - Physical Examination General: No Apparent Distress HEENT: Positive: PERRL, Normocephaly, Mucus Membranes Moist Neck: Positive: neck supple, trachea midline Cardiac: Positive: Reg Rate and Rhythm, S1/S2 Lungs: Positive: clear to auscultation Neuro: Positive: Grossly Intact Abdomen: Positive: Soft. Negative: Tender Skin: Positive: Clear. Negative: Rash, Wound Musculoskeletal: No Pain Extremities: Absent: edema - Labs and Meds Coagulation 11/30/17 Range/Units 03:51 PT 13.4 (12.2-14.9) Sec. INR 0.97 (0.87-1.13) CBC 11/30/17 Range/Units 03:51 WBC 7.8 (4.5-11.0) K/mm3 RBC 3.61 L (3.65-5.03) M/mm3 Hgb 11.7 (10.1-14.3) gm/dl Hct 34.8 (30.3-42.9) % Plt Count 201 (140-440) K/mm3 Lymph # 2.4 (1.2-5.4) K/mm3 [place] # 1.1 H (0.0-0.8) K/mm3 Eos # 0.2 (0.0-0.4) K/mm3 Baso # 0.1 (0.0-0.1) K/mm3 Comprehensive Metabolic Panel 11/30/17 Range/Units 03:51 Sodium 133 L (137-145) mmol/L Potassium 4.3 (3.6-5.0) mmol/L Chloride 96.4 L (98-107) mmol/L Carbon Dioxide 25 (22-30) mmol/L BUN 13 (7-17) mg/dL Creatinine 0.5 L (0.7-1.2) mg/dL Glucose 99 (65-100) mg/dL Calcium 9.8 (8.4-10.2) mg/dL - Imaging and Cardiology EKG: report reviewed, image reviewed Echo: report reviewed (EF 20-25%, mild to mod TR, mod pulm HTN with RVSP 58mmHg , mild MR, pacemaker wire in RV.) Cardiac cath: report reviewed (11/30/2017: mild CAD with some calcification in the prox part of the circ, mod dilated LV, EF 25-50%; 2017 patent coronaries and ef 25%, ) - Telemetry EKG Rhythm: Sinus Rhythm - EKG Ventricular dysrhythmias: ventricular premature com Pacemaker: atrial pacing w/capture - Allied health notes Allied health notes reviewed: nursing
[2017-11-30] MEDS: BABY ASPIRIN PO SCH (10:32)
[2017-11-30] MEDS: HEPARIN SUB-Q SCH ×2 (10:33→21:27)
--- NOTE | 2017-11-30 11:22 | Progress Note ---
Assessment and Plan Assessment and plan: S/p V-fib arrest. Patient with successful resuscitation. Continue per cardiology recommendations. -Alexandre negative for AMI. ECG shows NAF. -Echocardiogram revealed left ventricular systolic function severely decreased with EF of 20-25%. Right ventricular global systolic function is normal. Right ventricular systolic pressure is calculated at 50 mmHg with evidence of moderate pulmonary hypertension -PPM interrogation reveals 5min 30sec run of ventricular fibrillation which corresponds to pt's syncopal episode/cardiac arrest in the field. -Coronary angiogram on Wednesday and possible AICD replacement on Wednesday if coronaries are normal -Cards started low dose digoxin for better heart rate control patient's blood pressure is low and is on low-dose Coreg and lisinopril -For PPM upgrade today. Pulmonary hypertension. Cardiomyopathy. As above History of EtOH/cocaine abuse. Continue withdrawal protocols. Pneumonia. Likely aspiration secondary from cardiopulmonary arrest. Hypokalemia. Resolved Full code.. History Interval history: Patient is s/p vfib arrest. No chest pain currently Hospitalist Physical - Physical exam Narrative exam: GEN: Not in acute distress, HEENT: Normocephalic, atraumatic, Neck: supple, No JVD Lungs: Clear to auscultation bilaterally, no crackles, no wheeze Heart:S1 and S2 regular, no murmurs, rubs or gallop, Abd:soft, non-tender, non-distended, normal bowel sounds Ext: No edema, no clubbing, no cyanosis Neuro: AAO x 3, no focal neurological signs - Constitutional Vitals: Temp Pulse Resp BP Pulse Ox 97.8 F 69 17 125/89 97 11/30/17 08:00 11/30/17 10:38 11/30/17 10:38 11/30/17 10:13 11/30/17 10:38 General appearance: Present: no acute distress Results - Labs CBC & Chem 7: 11/30/17 03:51 11/30/17 03:51 Labs: Laboratory Last Values WBC 7.8 K/mm3 (4.5-11.0) 11/30/17 03:51 RBC 3.61 M/mm3 (3.65-5.03) L 11/30/17 03:51 Hgb 11.7 gm/dl (10.1-14.3) 11/30/17 03:51 Hct 34.8 % (30.3-42.9) 11/30/17 03:51 MCV 96 fl (79-97) 11/30/17 03:51 MCH 32 pg (28-32) 11/30/17 03:51 MCHC 34 % (30-34) 11/30/17 03:51 RDW 13.1 % (13.2-15.2) L 11/30/17 03:51 Plt Count 201 K/mm3 (140-440) 11/30/17 03:51 Lymph % (Auto) 31.3 % (13.4-35.0) 11/30/17 03:51 [place] % (Auto) 14.5 % (0.0-7.3) H 11/30/17 03:51 Eos % (Auto) 2.6 % (0.0-4.3) 11/30/17 03:51 Baso % (Auto) 1.1 % (0.0-1.8) 11/30/17 03:51 Lymph # 2.4 K/mm3 (1.2-5.4) 11/30/17 03:51 [place] # 1.1 K/mm3 (0.0-0.8) H 11/30/17 03:51 Eos # 0.2 K/mm3 (0.0-0.4) 11/30/17 03:51 Baso # 0.1 K/mm3 (0.0-0.1) 11/30/17 03:51 Seg Neutrophils % 50.5 % (40.0-70.0) 11/30/17 03:51 Seg Neutrophils # 3.9 K/mm3 (1.8-7.7) 11/30/17 03:51 PT 13.4 Sec. (12.2-14.9) 11/30/17 03:51 INR 0.97 (0.87-1.13) 11/30/17 03:51 APTT 36.5 Sec. (24.2-36.6) 11/29/17 04:19 Thrombin Time 15.5 Sec. (15.1-19.6) 11/23/17 00:39 D-Dimer 558.12 ng/mlDDU (0-234) H 11/23/17 15:00 Sodium 133 mmol/L (137-145) L 11/30/17 03:51 Potassium 4.3 mmol/L (3.6-5.0) 11/30/17 03:51 Chloride 96.4 mmol/L (98-107) L 11/30/17 03:51 Carbon Dioxide 25 mmol/L (22-30) 11/30/17 03:51 Anion Gap 16 mmol/L 11/30/17 03:51 BUN 13 mg/dL (7-17) 11/30/17 03:51 Creatinine 0.5 mg/dL (0.7-1.2) L 11/30/17 03:51 Estimated GFR > 60 ml/min 11/30/17 03:51 BUN/Creatinine Ratio 26 % 11/30/17 03:51 Glucose 99 mg/dL (65-100) 11/30/17 03:51 POC Glucose 84 (70-105) 11/28/17 17:13 Calcium 9.8 mg/dL (8.4-10.2) 11/30/17 03:51 Magnesium 1.70 mg/dL (1.7-2.3) 11/23/17 05:48 Total Creatine Kinase 530 units/L (30-135) H 11/23/17 05:48 CK-MB (CK-2) 5.9 ng/mL (0.0-4.0) H 11/23/17 05:48 CK-MB (CK-2) Rel Index 1.1 (0-4) 11/23/17 05:48 Troponin T 0.022 ng/mL (0.00-0.029) 11/23/17 05:48 TSH 2.910 mlU/mL (0.270-4.200) 11/26/17 17:13 Free T4 1.24 ng/dL (0.76-1.46) 11/26/17 17:13 Urine Opiates Screen Presumptive negative 11/23/17 21:34 Urine Methadone Screen Presumptive negative 11/23/17 21:34 Ur Barbiturates Screen Presumptive negative 11/23/17 21:34 Ur Phencyclidine Scrn Presumptive negative 11/23/17 21:34 Ur Amphetamines Screen Presumptive negative 11/23/17 21:34 U Benzodiazepines Scrn Presumptive negative 11/23/17 21:34 Urine Cocaine Screen Presumptive negative 11/23/17 21:34 U Marijuana (THC) Screen Presumptive negative 11/23/17 21:34 Drugs of Abuse Note Disclamer 11/23/17 21:34
--- NOTE | 2017-11-30 13:20 | Progress Note ---
Assessment and Plan Cardiac arrest with ROSC Syncope h/o Cardiomyopathy h/o substance abuse disorder. Aspiration pneumonitis Cardiomyopathy EF 25% on recent Echo - for AICD placement tomorrow - PT/OT - continue Cardio-protective measures - Substance abuse counselling done - prn bronchodilators - Supplemental oxygen as indicated for O2 sats<88% - continue other care per attending / other consultants ... will see prn Subjective Date of service: 11/30/17 Principal diagnosis: Cardiac arrest with ROSC; Syncope; CMOP; Aspiration pneumonitis Interval history: Patient is seen today for: Cardiac arrest with ROSC; Syncope; h/o Cardiomyopathy ; h/o substance abuse disorder.; Aspiration pneumonitis Seen and examined at bedside; 24hour events reviewed; nursing and respiratory care staff consulted; no adverse overnight events reported to me; resting peacefully i bed; family visiting; denies acute chest pains or palpitations Objective Vital Signs - 12hr 11/30/17 11/30/17 11/30/17 04:50 06:03 08:00 Temperature 97.7 F 97.8 F Pulse Rate 70 69 Pulse Rate [ Apical] Pulse Rate [ Left Dorsalis Pedis] Pulse Rate [ 90 Left Radial] Pulse Rate [ Right Dorsalis Pedis] Pulse Rate [ Right Radial] Respiratory 20 17 17 Rate Blood Pressure 117/80 125/81 O2 Sat by Pulse 96 97 Oximetry 11/30/17 11/30/17 11/30/17 10:00 10:13 10:38 Temperature Pulse Rate 81 69 Pulse Rate [ 69 Apical] Pulse Rate [ 69 Left Dorsalis Pedis] Pulse Rate [ 69 Left Radial] Pulse Rate [ 69 Right Dorsalis Pedis] Pulse Rate [ 69 Right Radial] Respiratory 17 Rate Blood Pressure 125/89 O2 Sat by Pulse 97 Oximetry 11/30/17 11:13 Temperature 98.4 F Pulse Rate 69 Pulse Rate [ Apical] Pulse Rate [ Left Dorsalis Pedis] Pulse Rate [ Left Radial] Pulse Rate [ Right Dorsalis Pedis] Pulse Rate [ Right Radial] Respiratory 18 Rate Blood Pressure 106/66 O2 Sat by Pulse 99 Oximetry Constitutional: no acute distress, alert, other Eyes: non-icteric ENT: oropharynx moist Neck: supple, no lymphadenopathy Effort: normal Ascultation: Bilateral: clear Tactile fremitus: Bilateral: normal Cardiovascular: regular rate and rhythm, other (paced) Gastrointestinal: normoactive bowel sounds, soft, non-tender, non-distended Integumentary: normal Extremities: no cyanosis, no edema, pink and warm, pulses normal, no ischemia or petechiae Neurologic: normal mental status, non-focal exam, pupils equal and round, motor strength normal and Psychiatric: mood appropriate, affect normal CBC and BMP: 11/30/17 03:51 11/30/17 03:51 ABG, PT/INR, D-dimer: PT/INR, D-dimer PT 13.4 Sec. (12.2-14.9) 11/30/17 03:51 INR 0.97 (0.87-1.13) 11/30/17 03:51 D-Dimer 558.12 ng/mlDDU (0-234) H 11/23/17 15:00 Abnormal lab findings: Abnormal Labs 11/23/17 11/23/17 11/23/17 00:37 00:37 05:48 WBC 12.2 H RBC 3.59 L MCH 33 H RDW Lymph % (Auto) [place] % (Auto) 8.2 H [place] # 1.0 H Seg Neutrophils % 71.8 H Seg Neutrophils # 8.8 H D-Dimer Sodium Potassium 2.8 L* Chloride Carbon Dioxide Creatinine Glucose 124 H Total Creatine Kinase 530 H CK-MB (CK-2) 5.9 H 11/23/17 11/23/17 11/24/17 15:00 15:00 07:17 WBC RBC MCH RDW Lymph % (Auto) [place] % (Auto) [place] # Seg Neutrophils % Seg Neutrophils # D-Dimer 558.12 H Sodium Potassium Chloride Carbon Dioxide 20 L Creatinine 0.6 L 0.5 L Glucose 120 H 110 H Total Creatine Kinase CK-MB (CK-2) 11/25/17 11/25/17 11/29/17 04:33 04:33 04:19 WBC RBC 3.25 L 3.48 L MCH 33 H 33 H RDW Lymph % (Auto) 35.9 H [place] % (Auto) 10.4 H 13.9 H [place] # 0.9 H 1.0 H Seg Neutrophils % Seg Neutrophils # D-Dimer Sodium Potassium Chloride Carbon Dioxide Creatinine 0.6 L Glucose 113 H Total Creatine Kinase CK-MB (CK-2) 11/29/17 11/30/17 11/30/17 04:19 03:51 03:51 WBC RBC 3.61 L MCH RDW 13.1 L Lymph % (Auto) [place] % (Auto) 14.5 H [place] # 1.1 H Seg Neutrophils % Seg Neutrophils # D-Dimer Sodium 133 L Potassium Chloride 97.1 L 96.4 L Carbon Dioxide Creatinine 0.6 L 0.5 L Glucose Total Creatine Kinase CK-MB (CK-2) Allied health notes reviewed: nursing
--- NOTE | 2017-11-30 14:45 | Vascular Lab Report ---
CAROTID DUPLEX STUDY: RIGHT PSVEDV CCA PROX:9824 CCA DIST:6526 ICA PROX:5016 ICA MID:8844 ICA DIST:[id number] ECA: 9221 VERT: 56 24 LEFT PSVEDV CCA PROX:9822 CCA DIST:7832 ICA PROX:7831 ICA MID:8228 ICA DIST:[id number] ECA: 9721 VERT: 72 26 REASON FOR EXAM: Syncope. COMMENTS ON THE RIGHT: Doppler frequency analysis is consistent with 16 to 49 percent diameter reduction of the internal carotid artery. A small amount of plaque is seen. The common carotid artery is patent. The external carotid artery is patent. The vertebral artery has antegrade flow. COMMENTS ON THE LEFT: Doppler frequency analysis is consistent with 16 to 49 percent diameter reduction of the internal carotid artery. A small amount of plaque is seen. The common carotid artery is patent. The external carotid artery is patent. The vertebral artery has antegrade flow. IMPRESSION: Less than 50% diameter reduction in the internal carotid arteries bilaterally.
[2017-11-30] MEDS: LANOXIN PO SCH ×2 (17:24→18:41)
[2017-11-30] MEDS: SODIUM CHLORIDE FLUSH SYRINGE 10 ML IV PRN (21:27)
[2017-12-01] MEDS: COREG PO SCH ×2 (09:24→22:13)
[2017-12-01] MEDS: BABY ASPIRIN PO SCH (09:24)
[2017-12-01] MEDS: COLACE PO SCH ×2 (09:24→22:13)
[2017-12-01] MEDS: HEPARIN SUB-Q SCH ×3 (09:24→22:17)
[2017-12-01] MEDS: ZESTRIL PO SCH (09:24)
--- NOTE | 2017-12-01 11:12 | Progress Note ---
Assessment and Plan Cont present management. For PPM upgrade to BiV AICD on - procedure postponed due to scheduling issues. The patient has been seen in conjunction with Dr. Montoya who agrees with the assessment and plan of care. - Patient Problems (1) Cardiac arrest with ventricular fibrillation Current Visit: Yes Status: Acute (2) Nonischemic cardiomyopathy Current Visit: Yes Status: Chronic (3) Nonobstructive atherosclerosis of coronary artery Current Visit: Yes Status: Chronic (4) Cardiac pacemaker in situ Current Visit: Yes Status: Chronic (5) History of ETOH abuse Current Visit: Yes Status: Chronic (6) History of cocaine abuse Current Visit: Yes Status: Chronic (7) Tobacco use Current Visit: Yes Status: Chronic (8) Hypokalemia Current Visit: Yes Status: Acute Subjective Date of service: 12/01/17 Principal diagnosis: cardiac arrest Interval history: pt resting in bed, no current cardiac complaints. awaiting AICD on . Objective Last Vital Signs Temp 98.2 F 12/01/17 05:04 Pulse 77 12/01/17 09:24 Resp 20 12/01/17 05:04 BP 116/77 12/01/17 05:04 Pulse Ox 97 12/01/17 05:04 - Physical Examination General: No Apparent Distress HEENT: Positive: PERRL, Normocephaly, Mucus Membranes Moist Neck: Positive: neck supple, trachea midline Cardiac: Positive: Reg Rate and Rhythm, S1/S2 Lungs: Positive: clear to auscultation Neuro: Positive: Grossly Intact Abdomen: Positive: Soft. Negative: Tender Skin: Positive: Clear. Negative: Rash, Wound Musculoskeletal: No Pain Extremities: Absent: edema - Imaging and Cardiology EKG: report reviewed, image reviewed Echo: report reviewed (EF 20-25%, mild to mod TR, mod pulm HTN with RVSP 58mmHg , mild MR, pacemaker wire in RV.) Cardiac cath: report reviewed (11/30/2017: mild CAD with some calcification in the prox part of the circ, mod dilated LV, EF 25-50%; 2017 patent coronaries and ef 25%, ) - Telemetry EKG Rhythm: Paced - EKG Ventricular dysrhythmias: ventricular premature com Pacemaker: atrial pacing w/capture - Allied health notes Allied health notes reviewed: nursing
--- NOTE | 2017-12-01 15:57 | Progress Note ---
Assessment and Plan Assessment and plan: S/p V-fib arrest. Patient with successful resuscitation. Continue per cardiology recommendations. -Alexandre negative for AMI. ECG shows NAF. -Echocardiogram revealed left ventricular systolic function severely decreased with EF of 20-25%. Right ventricular global systolic function is normal. Right ventricular systolic pressure is calculated at 50 mmHg with evidence of moderate pulmonary hypertension -PPM interrogation reveals 5min 30sec run of ventricular fibrillation which corresponds to pt's syncopal episode/cardiac arrest in the field. -Coronary angiogram on Wednesday and possible AICD replacement on Wednesday if coronaries are normal -Cards started low dose digoxin for better heart rate control patient's blood pressure is low and is on low-dose Coreg and lisinopril -For PPM upgrade tomorrow, was postponed. Pulmonary hypertension. Cardiomyopathy. Cardiology following History of EtOH/cocaine abuse. Continue withdrawal protocols. Pneumonia. Hypokalemia. Resolved Full code.. History Interval history: Patient is s/p vfib arrest. No chest pain currently Pacemaker upgrade postponed to tomorrow Hospitalist Physical - Physical exam Narrative exam: GEN: Not in acute distress, HEENT: Normocephalic, atraumatic, Neck: supple, No JVD Lungs: Clear to auscultation bilaterally, no crackles, no wheeze Heart:S1 and S2 regular, no murmurs, rubs or gallop, Abd:soft, non-tender, non-distended, normal bowel sounds Ext: No edema, no clubbing, no cyanosis Neuro: AAO x 3, no focal neurological signs - Constitutional Vitals: Temp Pulse Resp BP Pulse Ox 97.9 F 70 19 117/81 100 12/01/17 12:21 12/01/17 12:21 12/01/17 12:21 12/01/17 12:21 12/01/17 12:21 General appearance: Present: no acute distress Results - Labs CBC & Chem 7: 11/30/17 03:51 11/30/17 03:51 Labs: Laboratory Last Values WBC 7.8 K/mm3 (4.5-11.0) 11/30/17 03:51 RBC 3.61 M/mm3 (3.65-5.03) L 11/30/17 03:51 Hgb 11.7 gm/dl (10.1-14.3) 11/30/17 03:51 Hct 34.8 % (30.3-42.9) 11/30/17 03:51 MCV 96 fl (79-97) 11/30/17 03:51 MCH 32 pg (28-32) 11/30/17 03:51 MCHC 34 % (30-34) 11/30/17 03:51 RDW 13.1 % (13.2-15.2) L 11/30/17 03:51 Plt Count 201 K/mm3 (140-440) 11/30/17 03:51 Lymph % (Auto) 31.3 % (13.4-35.0) 11/30/17 03:51 Maverick % (Auto) 14.5 % (0.0-7.3) H 11/30/17 03:51 Eos % (Auto) 2.6 % (0.0-4.3) 11/30/17 03:51 Baso % (Auto) 1.1 % (0.0-1.8) 11/30/17 03:51 Lymph # 2.4 K/mm3 (1.2-5.4) 11/30/17 03:51 Maverick # 1.1 K/mm3 (0.0-0.8) H 11/30/17 03:51 Eos # 0.2 K/mm3 (0.0-0.4) 11/30/17 03:51 Baso # 0.1 K/mm3 (0.0-0.1) 11/30/17 03:51 Seg Neutrophils % 50.5 % (40.0-70.0) 11/30/17 03:51 Seg Neutrophils # 3.9 K/mm3 (1.8-7.7) 11/30/17 03:51 PT 13.4 Sec. (12.2-14.9) 11/30/17 03:51 INR 0.97 (0.87-1.13) 11/30/17 03:51 APTT 36.5 Sec. (24.2-36.6) 11/29/17 04:19 Thrombin Time 15.5 Sec. (15.1-19.6) 11/23/17 00:39 D-Dimer 558.12 ng/mlDDU (0-234) H 11/23/17 15:00 Sodium 133 mmol/L (137-145) L 11/30/17 03:51 Potassium 4.3 mmol/L (3.6-5.0) 11/30/17 03:51 Chloride 96.4 mmol/L (98-107) L 11/30/17 03:51 Carbon Dioxide 25 mmol/L (22-30) 11/30/17 03:51 Anion Gap 16 mmol/L 11/30/17 03:51 BUN 13 mg/dL (7-17) 11/30/17 03:51 Creatinine 0.5 mg/dL (0.7-1.2) L 11/30/17 03:51 Estimated GFR > 60 ml/min 11/30/17 03:51 BUN/Creatinine Ratio 26 % 11/30/17 03:51 Glucose 99 mg/dL (65-100) 11/30/17 03:51 POC Glucose 97 (70-105) 11/30/17 15:34 Calcium 9.8 mg/dL (8.4-10.2) 11/30/17 03:51 Magnesium 1.70 mg/dL (1.7-2.3) 11/23/17 05:48 Total Creatine Kinase 530 units/L (30-135) H 11/23/17 05:48 CK-MB (CK-2) 5.9 ng/mL (0.0-4.0) H 11/23/17 05:48 CK-MB (CK-2) Rel Index 1.1 (0-4) 11/23/17 05:48 Troponin T 0.022 ng/mL (0.00-0.029) 11/23/17 05:48 TSH 2.910 mlU/mL (0.270-4.200) 11/26/17 17:13 Free T4 1.24 ng/dL (0.76-1.46) 11/26/17 17:13 Urine Opiates Screen Presumptive negative 11/23/17 21:34 Urine Methadone Screen Presumptive negative 11/23/17 21:34 Ur Barbiturates Screen Presumptive negative 11/23/17 21:34 Ur Phencyclidine Scrn Presumptive negative 11/23/17 21:34 Ur Amphetamines Screen Presumptive negative 11/23/17 21:34 U Benzodiazepines Scrn Presumptive negative 11/23/17 21:34 Urine Cocaine Screen Presumptive negative 11/23/17 21:34 U Marijuana (THC) Screen Presumptive negative 11/23/17 21:34 Drugs of Abuse Note Disclamer 11/23/17 21:34
[2017-12-01] MEDS: LANOXIN PO SCH (16:31)
[2017-12-01] MEDS: MORPHINE IV PRN (22:20)
[2017-12-02] MEDS ORDERED: SUBLIMAZE ONE ×3 (05:29→14:50)
[2017-12-02] MEDS ORDERED: ZOFRAN ONE (05:29)
[2017-12-02 06:25] LABS: Hematocrit 35.1 % (30.3-42.9); Hemoglobin 11.4 gm/dl (10.1-14.3); Mean Corpuscular HGB Conc 33 % (30-34); Mean Corpuscular Hemoglobin 32 pg (28-32); Mean Corpuscular Volume 97 fl (79-97); Platelet Count 227 K/mm3 (140-440); Red Blood Count 3.61 M/mm3 (3.65-5.03); Red Cell Distribution Width 13.5 % (13.2-15.2)
[2017-12-02 06:39] LABS: INR 0.92 (0.87-1.13)
[2017-12-02 08:11] LABS: BUN/Creatinine Ratio 28; Blood Urea Nitrogen 17 mg/dL (7-17); Calcium 9.4 mg/dL (8.4-10.2); Hemolysis Index 0
[2017-12-02 09:00] LABS: Basophils % (Manual) 0 % (0.0-1.8); Eosinophils % (Manual) 0 % (0.0-4.3); Total Cells Counted 100
[2017-12-02 09:01] LABS: Anisocytosis Few; Poikilocytosis Few
[2017-12-02] MEDS: ZESTRIL PO SCH (10:00)
[2017-12-02] MEDS: COREG PO SCH ×2 (10:00→21:28)
[2017-12-02] MEDS: COLACE PO SCH ×2 (10:00→21:28)
[2017-12-02] MEDS: HEPARIN SUB-Q SCH ×2 (10:00→21:27)
[2017-12-02] MEDS: BABY ASPIRIN PO SCH (10:00)
--- NOTE | 2017-12-02 10:21 | Progress Note ---
Assessment and Plan Assessment and plan: S/p V-fib arrest. Patient with successful resuscitation. Continue per cardiology recommendations. -Alexandre negative for AMI. ECG shows NAF. -Echocardiogram revealed left ventricular systolic function severely decreased with EF of 20-25%. Right ventricular global systolic function is normal. Right ventricular systolic pressure is calculated at 50 mmHg with evidence of moderate pulmonary hypertension -PPM interrogation reveals 5min 30sec run of ventricular fibrillation which corresponds to pt's syncopal episode/cardiac arrest in the field. -Cards started low dose digoxin for better heart rate control -For PPM upgrade to BiV today, Pulmonary hypertension. Cardiomyopathy. Cardiology following History of EtOH/cocaine abuse. Continue CIWA protocol. Pneumonia. Hypokalemia. Resolved Full code status. History Interval history: Patient is s/p vfib arrest. No chest pain currently Pacemaker upgrade postponed today Hospitalist Physical - Physical exam Narrative exam: GEN: Not in acute distress, HEENT: Normocephalic, atraumatic, Neck: supple, No JVD Lungs: Clear to auscultation bilaterally, no crackles, no wheeze Heart:S1 and S2 regular, no murmurs, rubs or gallop, Abd:soft, non-tender, non-distended, normal bowel sounds Ext: No edema, no clubbing, no cyanosis Neuro: AAO x 3, no focal neurological signs - Constitutional Vitals: Temp Pulse Resp BP Pulse Ox 98.3 F 71 17 122/83 99 12/02/17 08:40 12/02/17 08:40 12/02/17 08:40 12/02/17 08:40 12/02/17 08:40 General appearance: Present: no acute distress Results - Labs CBC & Chem 7: 12/02/17 05:32 12/02/17 05:32 Labs: Laboratory Last Values WBC 6.8 K/mm3 (4.5-11.0) 12/02/17 05:32 RBC 3.61 M/mm3 (3.65-5.03) L 12/02/17 05:32 Hgb 11.4 gm/dl (10.1-14.3) 12/02/17 05:32 Hct 35.1 % (30.3-42.9) 12/02/17 05:32 MCV 97 fl (79-97) 12/02/17 05:32 MCH 32 pg (28-32) 12/02/17 05:32 MCHC 33 % (30-34) 12/02/17 05:32 RDW 13.5 % (13.2-15.2) 12/02/17 05:32 Plt Count 227 K/mm3 (140-440) 12/02/17 05:32 Lymph % (Auto) 31.3 % (13.4-35.0) 11/30/17 03:51 Randolph % (Auto) [employer] Drier 12/02/17 05:32 Eos % (Auto) 2.6 % (0.0-4.3) 11/30/17 03:51 Baso % (Auto) 1.1 % (0.0-1.8) 11/30/17 03:51 Lymph # 2.4 K/mm3 (1.2-5.4) 11/30/17 03:51 Randolph # 1.1 K/mm3 (0.0-0.8) H 11/30/17 03:51 Eos # 0.2 K/mm3 (0.0-0.4) 11/30/17 03:51 Baso # 0.1 K/mm3 (0.0-0.1) 11/30/17 03:51 Add Manual Diff Complete 12/02/17 05:32 Total Counted 100 12/02/17 05:32 Seg Neutrophils % 50.5 % (40.0-70.0) 11/30/17 03:51 Seg Neuts % (Manual) 54.0 % (40.0-70.0) 12/02/17 05:32 Band Neutrophils % 0 % 12/02/17 05:32 Lymphocytes % (Manual) 34.0 % (13.4-35.0) 12/02/17 05:32 Reactive Lymphs % (Man) 0 % 12/02/17 05:32 Monocytes % (Manual) 12.0 % (0.0-7.3) H 12/02/17 05:32 Eosinophils % (Manual) 0 % (0.0-4.3) 12/02/17 05:32 Basophils % (Manual) 0 % (0.0-1.8) 12/02/17 05:32 Metamyelocytes % 0 % 12/02/17 05:32 Myelocytes % 0 % 12/02/17 05:32 Promyelocytes % 0 % 12/02/17 05:32 Blast Cells % 0 % 12/02/17 05:32 Nucleated RBC % Not Reportable 12/02/17 05:32 Seg Neutrophils # 3.9 K/mm3 (1.8-7.7) 11/30/17 03:51 Seg Neutrophils # Man 3.7 K/mm3 (1.8-7.7) 12/02/17 05:32 Band Neutrophils # 0.0 K/mm3 12/02/17 05:32 Lymphocytes # (Manual) 2.3 K/mm3 (1.2-5.4) 12/02/17 05:32 Abs React Lymphs (Man) 0.0 K/mm3 12/02/17 05:32 Monocytes # (Manual) 0.8 K/mm3 (0.0-0.8) 12/02/17 05:32 Eosinophils # (Manual) 0.0 K/mm3 (0.0-0.4) 12/02/17 05:32 Basophils # (Manual) 0.0 K/mm3 (0.0-0.1) 12/02/17 05:32 Metamyelocytes # 0.0 K/mm3 12/02/17 05:32 Myelocytes # 0.0 K/mm3 12/02/17 05:32 Promyelocytes # 0.0 K/mm3 12/02/17 05:32 Blast Cells # 0.0 K/mm3 12/02/17 05:32 WBC Morphology Not Reportable 12/02/17 05:32 Hypersegmented Neuts Not Reportable 12/02/17 05:32 Hyposegmented Neuts Not Reportable 12/02/17 05:32 Hypogranular Neuts Not Reportable 12/02/17 05:32 Smudge Cells Not Reportable 12/02/17 05:32 Toxic Granulation Not Reportable 12/02/17 05:32 Toxic Vacuolation Not Reportable 12/02/17 05:32 Dohle Bodies Not Reportable 12/02/17 05:32 Pelger-Huet Anomaly Not Reportable 12/02/17 05:32 Lamont Rods Not Reportable 12/02/17 05:32 Platelet Estimate Appears normal 12/02/17 05:32 Clumped Platelets Not Reportable 12/02/17 05:32 Plt Clumps, EDTA Not Reportable 12/02/17 05:32 Large Platelets Not Reportable 12/02/17 05:32 Giant Platelets Not Reportable 12/02/17 05:32 Platelet Satelliting Not Reportable 12/02/17 05:32 Plt Morphology Comment Not Reportable 12/02/17 05:32 RBC Morphology Not Reportable 12/02/17 05:32 Dimorphic RBCs Not Reportable 12/02/17 05:32 Polychromasia Not Reportable 12/02/17 05:32 Hypochromasia Not Reportable 12/02/17 05:32 Poikilocytosis Few 12/02/17 05:32 Anisocytosis Few 12/02/17 05:32 Microcytosis Not Reportable 12/02/17 05:32 Macrocytosis Not Reportable 12/02/17 05:32 Spherocytes Not Reportable 12/02/17 05:32 Pappenheimer Bodies Not Reportable 12/02/17 05:32 Sickle Cells Not Reportable 12/02/17 05:32 Target Cells Not Reportable 12/02/17 05:32 Tear Drop Cells Not Reportable 12/02/17 05:32 Ovalocytes Not Reportable 12/02/17 05:32 Helmet Cells Not Reportable 12/02/17 05:32 Reyes-Blomkest Bodies Not Reportable 12/02/17 05:32 [place] Rings Not Reportable 12/02/17 05:32 Chandler Cells Not Reportable 12/02/17 05:32 Bite Cells Not Reportable 12/02/17 05:32 Crenated Cell Not Reportable 12/02/17 05:32 Elliptocytes Not Reportable 12/02/17 05:32 Acanthocytes (Spur) Not Reportable 12/02/17 05:32 Rouleaux Not Reportable 12/02/17 05:32 Hemoglobin C Crystals Not Reportable 12/02/17 05:32 Schistocytes Not Reportable 12/02/17 05:32 Malaria parasites Not Reportable 12/02/17 05:32 Gordo Bodies Not Reportable 12/02/17 05:32 Hem Pathologist Commnt No 12/02/17 05:32 PT 12.9 Sec. (12.2-14.9) 12/02/17 05:32 INR 0.92 (0.87-1.13) 12/02/17 05:32 APTT 36.5 Sec. (24.2-36.6) 11/29/17 04:19 Thrombin Time 15.5 Sec. (15.1-19.6) 11/23/17 00:39 D-Dimer 558.12 ng/mlDDU (0-234) H 11/23/17 15:00 Sodium 135 mmol/L (137-145) L 12/02/17 05:32 Potassium 5.0 mmol/L (3.6-5.0) 12/02/17 05:32 Chloride 98.0 mmol/L (98-107) 12/02/17 05:32 Carbon Dioxide 23 mmol/L (22-30) 12/02/17 05:32 Anion Gap 19 mmol/L 12/02/17 05:32 BUN 17 mg/dL (7-17) 12/02/17 05:32 Creatinine 0.6 mg/dL (0.7-1.2) L 12/02/17 05:32 Estimated GFR > 60 ml/min 12/02/17 05:32 BUN/Creatinine Ratio 28 % 12/02/17 05:32 Glucose 101 mg/dL (65-100) H 12/02/17 05:32 POC Glucose 98 (70-105) 12/02/17 06:02 Calcium 9.4 mg/dL (8.4-10.2) 12/02/17 05:32 Magnesium 1.70 mg/dL (1.7-2.3) 11/23/17 05:48 Total Creatine Kinase 530 units/L (30-135) H 11/23/17 05:48 CK-MB (CK-2) 5.9 ng/mL (0.0-4.0) H 11/23/17 05:48 CK-MB (CK-2) Rel Index 1.1 (0-4) 11/23/17 05:48 Troponin T 0.022 ng/mL (0.00-0.029) 11/23/17 05:48 TSH 2.910 mlU/mL (0.270-4.200) 11/26/17 17:13 Free T4 1.24 ng/dL (0.76-1.46) 11/26/17 17:13 Urine Opiates Screen Presumptive negative 11/23/17 21:34 Urine Methadone Screen Presumptive negative 11/23/17 21:34 Ur Barbiturates Screen Presumptive negative 11/23/17 21:34 Ur Phencyclidine Scrn Presumptive negative 11/23/17 21:34 Ur Amphetamines Screen Presumptive negative 11/23/17 21:34 U Benzodiazepines Scrn Presumptive negative 11/23/17 21:34 Urine Cocaine Screen Presumptive negative 11/23/17 21:34 U Marijuana (THC) Screen Presumptive negative 11/23/17 21:34 Drugs of Abuse Note Disclamer 11/23/17 21:34
--- NOTE | 2017-12-02 10:26 | Progress Note ---
Assessment and Plan Cont present management. For PPM upgrade to BiV AICD on today. The patient has been seen in conjunction with Dr. Montoya who agrees with the assessment and plan of care. - Patient Problems (1) Cardiac arrest with ventricular fibrillation Current Visit: Yes Status: Acute (2) Nonischemic cardiomyopathy Current Visit: Yes Status: Chronic (3) Nonobstructive atherosclerosis of coronary artery Current Visit: Yes Status: Chronic (4) Cardiac pacemaker in situ Current Visit: Yes Status: Chronic (5) History of ETOH abuse Current Visit: Yes Status: Chronic (6) History of cocaine abuse Current Visit: Yes Status: Chronic (7) Tobacco use Current Visit: Yes Status: Chronic (8) Hypokalemia Current Visit: Yes Status: Acute Subjective Date of service: 12/02/17 Principal diagnosis: Cardiac arrest with ROSC; Syncope; CMOP; Aspiration pneumonitis Interval history: pt resting in bed, no current cardiac complaints. for PPM exchange to AICD today. Objective Last Vital Signs Temp 98.3 F 12/02/17 08:40 Pulse 71 12/02/17 08:40 Resp 17 12/02/17 08:40 BP 122/83 12/02/17 08:40 Pulse Ox 99 12/02/17 08:40 - Physical Examination General: No Apparent Distress HEENT: Positive: PERRL, Normocephaly, Mucus Membranes Moist Neck: Positive: neck supple, trachea midline Cardiac: Positive: Reg Rate and Rhythm, S1/S2 Lungs: Positive: clear to auscultation Neuro: Positive: Grossly Intact Abdomen: Positive: Soft. Negative: Tender Skin: Positive: Clear. Negative: Rash, Wound Musculoskeletal: No Pain Extremities: Absent: edema - Labs and Meds Coagulation 12/02/17 Range/Units 05:32 PT 12.9 (12.2-14.9) Sec. INR 0.92 (0.87-1.13) CBC 12/02/17 Range/Units 05:32 WBC 6.8 (4.5-11.0) K/mm3 RBC 3.61 L (3.65-5.03) M/mm3 Hgb 11.4 (10.1-14.3) gm/dl Hct 35.1 (30.3-42.9) % Plt Count 227 (140-440) K/mm3 Comprehensive Metabolic Panel 12/02/17 Range/Units 05:32 Sodium 135 L (137-145) mmol/L Potassium 5.0 (3.6-5.0) mmol/L Chloride 98.0 (98-107) mmol/L Carbon Dioxide 23 (22-30) mmol/L BUN 17 (7-17) mg/dL Creatinine 0.6 L (0.7-1.2) mg/dL Glucose 101 H (65-100) mg/dL Calcium 9.4 (8.4-10.2) mg/dL - Imaging and Cardiology EKG: report reviewed, image reviewed Echo: report reviewed (EF 20-25%, mild to mod TR, mod pulm HTN with RVSP 58mmHg , mild MR, pacemaker wire in RV.) Cardiac cath: report reviewed (11/30/2017: mild CAD with some calcification in the prox part of the circ, mod dilated LV, EF 25-50%; 2017 patent coronaries and ef 25%, ) - EKG Ventricular dysrhythmias: ventricular premature com Pacemaker: atrial pacing w/capture - Allied health notes Allied health notes reviewed: nursing
--- NOTE | 2017-12-02 10:31 | Anesthesia Day of Surgery ---
Anesthesia Day of Surgery - Day of Surgery Patient Examined: Yes Patient H&P Reviewed: Yes Patient is NPO: Yes
--- NOTE | 2017-12-02 10:33 | Anesthesia Consultation ---
Anesthesia Consult and Med Hx Date of service: 12/02/17 - Airway Anesthetic Teeth Evaluation: Poor, Chipped ROM Head & Neck: Adequate Mental/Hyoid Distance: Adequate Mallampati Class: Class II Intubation Access Assessment: Probably Good - Pulmonary Exam CTA: Yes - Cardiac Exam Cardiac Exam: RRR - Pre-Operative Health Status ASA Pre-Surgery Classification: ASA3 Proposed Anesthetic Plan: General, MAC (EF approx 25%, CHF, HTN , no DM, denies GERD) - Pulmonary Hx Asthma: No COPD: No Hx Pneumonia: No - Endocrine Hx End Stage Renal Disease: No
[2017-12-02] MEDS ORDERED: DIPRIVAN 10 MG/ML IV ONE ×5 (10:58→14:07)
[2017-12-02] MEDS ORDERED: VERSED ONE (10:59)
[2017-12-02] MEDS ORDERED: NACL 0.45% 1000 ML 1,000 ML IV SCH (11:00)
[2017-12-02] MEDS ORDERED: NACL 0.9% 1,000 ML, VANCOMYCIN VIAL 1,000 MG IR ONE (11:00)
[2017-12-02] MEDS ORDERED: MARCAINE 0.5% INFILTRATI ONE (11:04)
[2017-12-02] MEDS ORDERED: ANCEF/STERILE WATER 2 GM/20 ML 2 GM/20 ML SYRINGE IV ONE (11:04)
[2017-12-02] MEDS ORDERED: XYLOCAINE 1% 20 mL ONE (11:04)
[2017-12-02] MEDS ORDERED: NACL 0.9% 500 ML 0 ML ONE (11:06)
[2017-12-02] MEDS: NACL 0.9% 500 ML IR ONE ×2 (11:44→12:00)
[2017-12-02] MEDS: NACL 0.9% 1000 ML 1,000 ML ONE ×2 (11:44→12:00)
[2017-12-02] MEDS: HEPARIN/NS 5000 UNIT/500ML(CATH LAB) 500 ML IR ONE ×2 (11:44→12:00)
[2017-12-02] MEDS ORDERED: VANCOMYCIN VIAL 1,000 MG in NACL 0.9% 1,000 ML IRRIGATION ONE (12:00)
--- NOTE | 2017-12-02 13:18 | Progress Note ---
Assessment and Plan Patient has ICD placement to day.Patient alert, awake. No acute respiratory distress.On room air. O2 saturation 97%. - Patient Problems (1) Cardiac arrest with successful resuscitation Current Visit: Yes Status: Acute Plan to address problem: Patient has ICD placement today. (2) TIA (transient ischemic attack) Current Visit: Yes Status: Acute Plan to address problem: Management as per primary care and neurology. (3) Automatic implantable cardioverter-defibrillator in situ Current Visit: Yes Status: Chronic Plan to address problem: Management as per primary care. (4) History of ETOH abuse Current Visit: Yes Status: Chronic Plan to address problem: Counselled to stop drinking alcohol. (5) History of cardiomyopathy Current Visit: Yes Status: Chronic Plan to address problem: Management as per cardiology. (6) History of cocaine abuse Current Visit: Yes Status: Chronic Plan to address problem: Counselled stop using cocain. (7) Tobacco use Current Visit: Yes Status: Chronic Plan to address problem: Counselled to stop smoking. (8) Pulmonary infiltrate in right lung on CXR Current Visit: Yes Status: Acute Plan to address problem: Patient afebrile No Leukocytosis Denies cough or shortness of breath. Subjective Date of service: 12/02/17 Principal diagnosis: Cardiac arrest with ROSC; Syncope; CMOP; Aspiration pneumonitis Interval history: Patient has ICD placement to day.Patient alert, awake. No acute respiratory distress.On room air. O2 saturation 97%. Objective Vital Signs - 12hr 12/02/17 12/02/17 04:43 08:40 Temperature 98.1 F 98.3 F Pulse Rate 76 71 Respiratory 20 17 Rate Blood Pressure 123/77 122/83 O2 Sat by Pulse 98 99 Oximetry Constitutional: no acute distress, alert, other Eyes: non-icteric ENT: oropharynx moist Neck: supple, no lymphadenopathy Effort: normal Ascultation: Bilateral: clear Tactile fremitus: Bilateral: normal Cardiovascular: regular rate and rhythm, other (paced) Gastrointestinal: normoactive bowel sounds, soft, non-tender, non-distended Integumentary: normal Extremities: no cyanosis, no edema, pink and warm, pulses normal, no ischemia or petechiae Neurologic: normal mental status, non-focal exam, pupils equal and round, motor strength normal and Psychiatric: mood appropriate, affect normal CBC and BMP: 12/02/17 05:32 12/02/17 05:32 ABG, PT/INR, D-dimer: PT/INR, D-dimer PT 12.9 Sec. (12.2-14.9) 12/02/17 05:32 INR 0.92 (0.87-1.13) 12/02/17 05:32 D-Dimer 558.12 ng/mlDDU (0-234) H 11/23/17 15:00 Abnormal lab findings: Abnormal Labs 11/23/17 11/23/17 11/23/17 00:37 00:37 05:48 WBC 12.2 H RBC 3.59 L MCH 33 H RDW Lymph % (Auto) Mathews % (Auto) 8.2 H Mathews # 1.0 H Seg Neutrophils % 71.8 H Monocytes % (Manual) Seg Neutrophils # 8.8 H D-Dimer Sodium Potassium 2.8 L* Chloride Carbon Dioxide Creatinine Glucose 124 H POC Glucose Total Creatine Kinase 530 H CK-MB (CK-2) 5.9 H 11/23/17 11/23/17 11/24/17 15:00 15:00 07:17 WBC RBC MCH RDW Lymph % (Auto) Mathews % (Auto) Mathews # Seg Neutrophils % Monocytes % (Manual) Seg Neutrophils # D-Dimer 558.12 H Sodium Potassium Chloride Carbon Dioxide 20 L Creatinine 0.6 L 0.5 L Glucose 120 H 110 H POC Glucose Total Creatine Kinase CK-MB (CK-2) 11/25/17 11/25/17 11/29/17 04:33 04:33 04:19 WBC RBC 3.25 L 3.48 L MCH 33 H 33 H RDW Lymph % (Auto) 35.9 H Mathews % (Auto) 10.4 H 13.9 H Mathews # 0.9 H 1.0 H Seg Neutrophils % Monocytes % (Manual) Seg Neutrophils # D-Dimer Sodium Potassium Chloride Carbon Dioxide Creatinine 0.6 L Glucose 113 H POC Glucose Total Creatine Kinase CK-MB (CK-2) 11/29/17 11/30/17 11/30/17 04:19 03:51 03:51 WBC RBC 3.61 L MCH RDW 13.1 L Lymph % (Auto) Mathews % (Auto) 14.5 H Mathews # 1.1 H Seg Neutrophils % Monocytes % (Manual) Seg Neutrophils # D-Dimer Sodium 133 L Potassium Chloride 97.1 L 96.4 L Carbon Dioxide Creatinine 0.6 L 0.5 L Glucose POC Glucose Total Creatine Kinase CK-MB (CK-2) 12/01/17 12/02/17 12/02/17 21:22 05:32 05:32 WBC RBC 3.61 L MCH RDW Lymph % (Auto) Mathews % (Auto) Mathews # Seg Neutrophils % Monocytes % (Manual) 12.0 H Seg Neutrophils # D-Dimer Sodium 135 L Potassium Chloride Carbon Dioxide Creatinine 0.6 L Glucose 101 H POC Glucose 109 H Total Creatine Kinase CK-MB (CK-2) Chest x-ray: report reviewed (Resiving right lung infiltrates.), image reviewed Allied health notes reviewed: nursing
[2017-12-02] MEDS ORDERED: NACL 0.9% 500 ML 500 ML ONE (13:44)
[2017-12-02] MEDS ORDERED: VANCOMYCIN/NS 1 GM/250 ML 1 GM/250 ML BAG IV ONE (14:39)
--- NOTE | 2017-12-02 15:55 | XRay Report ---
FINAL REPORT EXAM: XR CHEST 1V AP HISTORY: post pacemaker TECHNIQUE: Frontal portable examination of the chest PRIORS: 11/23/2017 FINDINGS: An electronic cardiac device remains in place and again obscures a portion of the left chest, limiting the examination. Cable entry is via the left subclavian vein. Left lung remains clear. Cardiac silhouette size moderately enlarged without definite evidence of vascular congestion. No pneumothorax or pleural effusion. Interval resolution of right upper lobe opacity. Near complete resolution of right lower lung opacity. IMPRESSION: Resolving right lung opacities may reflect improvement of edema and/or pneumonitis Cardiomegaly
[2017-12-02] MEDS: NORCO 5/325 PO PRN (17:18)
[2017-12-02] MEDS ORDERED: VANCOMYCIN/NS 1 GM/250 ML 1 GM/250 ML BAG IV SCH (22:00)
[2017-12-03] MEDS: NORCO 5/325 PO PRN ×2 (07:31→13:16)
--- NOTE | 2017-12-03 10:44 | Progress Note ---
Assessment and Plan S/p PPM upgrade to AICD yesterday. Post-procedure CXR shows NAF, no pneumothorax. Device interrogation this AM showed normal device function. Currently stable cardiac status. Cont present management. Pt may discharge home from cardiology standpoint. At discharge, recommend PO Keflex 500mg BID x 10 days. Cont all other present cardiac management. D/w Dr. Haile. Follow up in our [place] office for incision check on 12/10/2017 @ 10:00AM. Pt wishes to follow up with [facility]. Recommend pt follow up within 1 week of hospital discharge. Pt verbalizes understanding. The patient has been seen in conjunction with Dr. Montoya who agrees with the assessment and plan of care. - Patient Problems (1) Cardiac arrest with ventricular fibrillation Current Visit: Yes Status: Acute (2) Nonischemic cardiomyopathy Current Visit: Yes Status: Chronic (3) Nonobstructive atherosclerosis of coronary artery Current Visit: Yes Status: Chronic (4) Cardiac pacemaker in situ Current Visit: Yes Status: Chronic (5) History of ETOH abuse Current Visit: Yes Status: Chronic (6) History of cocaine abuse Current Visit: Yes Status: Chronic (7) Tobacco use Current Visit: Yes Status: Chronic (8) Hypokalemia Current Visit: Yes Status: Acute Subjective Date of service: 12/03/17 Principal diagnosis: Cardiac arrest with ROSC; Syncope; CMOP; Aspiration pneumonitis Interval history: pt resting in bed, no current cardiac complaints. AICD implantation site pressure dressing removed, covered with telfa and tegaderm dressing, site c/d/i , no evidence of bleeding or hematoma noted. Objective Last Vital Signs Temp 98.1 F 12/03/17 07:53 Pulse 85 12/03/17 07:53 Resp 18 12/03/17 07:53 BP 120/83 12/03/17 07:53 Pulse Ox 99 12/03/17 07:53 - Physical Examination General: No Apparent Distress HEENT: Positive: PERRL, Normocephaly, Mucus Membranes Moist Neck: Positive: neck supple, trachea midline Cardiac: Positive: Reg Rate and Rhythm, S1/S2 Lungs: Positive: clear to auscultation Neuro: Positive: Grossly Intact Abdomen: Positive: Soft. Negative: Tender Skin: Positive: Clear. Negative: Rash, Wound Incision: Incision Site (AICD implantation site pressure dressing removed, site c/d/i, no evidence of bleeding or hematoma. ) Musculoskeletal: No Pain Extremities: Absent: edema - Imaging and Cardiology EKG: report reviewed, image reviewed Echo: report reviewed (EF 20-25%, mild to mod TR, mod pulm HTN with RVSP 58mmHg , mild MR, pacemaker wire in RV.) Cardiac cath: report reviewed (11/30/2017: mild CAD with some calcification in the prox part of the circ, mod dilated LV, EF 25-50%; 2017 patent coronaries and ef 25%, ) - Telemetry EKG Rhythm: Sinus Rhythm - EKG Ventricular dysrhythmias: ventricular premature com Pacemaker: atrial pacing w/capture - Allied health notes Allied health notes reviewed: nursing
--- NOTE | 2017-12-03 11:23 | Discharge Summary ---
Providers - Providers Date of Admission: 11/23/17 05:25 Date of discharge: 12/03/17 Attending physician: SANCHEZ JESUS 11/23/17 05:32 Consult to Physician [CONS] Routine Comment: Consulting Provider: IVETH VEGA Physician Instructions: Reason For Exam: CARDIAC ARREST WITH SYNCOPE 11/23/17 05:44 Consult to Physician [CONS] Routine Comment: Consulting Provider: WALE HESS Physician Instructions: Reason For Exam: CARDIAC ARREST 11/29/17 10:50 Consult to Cardiac Rehabilitation [CONS] Routine Reason For Exam: Cardiac Rehab Evaluation Primary care physician: RISK AND INSURANCE CONSULTANT Hospitalization Condition: Fair Disposition: DC/TX-06 HOME UNDER HOME [facility] Core Measure Documentation - Palliative Care Palliative Care/ Comfort Measures: Not Applicable - Core Measures Any of the following diagnoses?: none Exam - Constitutional Vitals: Temp Pulse Resp BP Pulse Ox 98.1 F 85 18 120/83 99 12/03/17 07:53 12/03/17 07:53 12/03/17 07:53 12/03/17 07:53 12/03/17 07:53 Plan Activity: advance as tolerated Diet: low fat, low cholesterol, low salt Special Instructions: home health RN Additional Instructions: 1.Follow up with PCP in 1 week. 2.Follow up with Cardiology at [place] in 1 week. 3.Follow up with [facility] on at 10:00 am for incision check. Prescriptions: Carvedilol [Coreg] 3.125 mg PO BID #60 tablet Digoxin [Lanoxin] 0.125 mg PO DAILY@1700 #30 tablet HYDROcodone/APAP 5-325 [[place] 5-325 mg TAB] 1 each PO Q6H PRN #10 tablet PRN Reason: Pain, Moderate (4-6) Lisinopril [Zestril TAB] 5 mg PO QDAY #30 tablet
[2017-12-03] MEDS: BABY ASPIRIN PO SCH (12:36)
[2017-12-03] MEDS: COREG PO SCH (12:36)
[2017-12-03] MEDS: COLACE PO SCH (12:36)
[2017-12-03] MEDS: ZESTRIL PO SCH (12:36)
[2017-12-03 16:51] VITALS: BP 102/68
--- NOTE | 2017-12-03 19:08 | Progress Note ---
Assessment and Plan Patient has ICD placement to day.Patient alert, awake. No acute respiratory distress.On room air. O2 saturation 97%. - Patient Problems (1) Cardiac arrest with successful resuscitation Current Visit: Yes Status: Acute Plan to address problem: Patient has ICD placement today. (2) TIA (transient ischemic attack) Current Visit: Yes Status: Acute Plan to address problem: Management as per primary care and neurology. (3) Automatic implantable cardioverter-defibrillator in situ Current Visit: Yes Status: Chronic Plan to address problem: Management as per primary care. (4) History of ETOH abuse Current Visit: Yes Status: Resolved Plan to address problem: Counselled to stop drinking alcohol. (5) History of cardiomyopathy Current Visit: Yes Status: Chronic Plan to address problem: Management as per cardiology. (6) History of cocaine abuse Current Visit: Yes Status: Chronic Plan to address problem: Counselled stop using cocain. (7) Tobacco use Current Visit: Yes Status: Chronic Plan to address problem: Counselled to stop smoking. (8) Pulmonary infiltrate in right lung on CXR Current Visit: Yes Status: Acute Plan to address problem: Patient afebrile No Leukocytosis Denies cough or shortness of breath. Subjective Date of service: 12/03/17 Principal diagnosis: Cardiac arrest with ROSC; Syncope; CMOP; Aspiration pneumonitis Interval history: Patient has ICD placement to day.Patient alert, awake. No acute respiratory distress.On room air. O2 saturation 97%. Objective Vital Signs - 12hr 12/03/17 12/03/17 12/03/17 07:53 12:22 16:50 Temperature 98.1 F 97.8 F 98.0 F Pulse Rate 85 88 82 Respiratory 18 18 18 Rate Blood Pressure 120/83 122/72 102/68 [Left] O2 Sat by Pulse 99 100 99 Oximetry 12/03/17 17:00 Temperature Pulse Rate 78 Respiratory Rate Blood Pressure [Left] O2 Sat by Pulse Oximetry Constitutional: no acute distress, alert, other Eyes: non-icteric ENT: oropharynx moist Neck: supple, no lymphadenopathy Effort: normal Ascultation: Bilateral: clear Tactile fremitus: Bilateral: normal Cardiovascular: regular rate and rhythm, other (paced) Gastrointestinal: normoactive bowel sounds, soft, non-tender, non-distended Integumentary: normal Extremities: no cyanosis, no edema, pink and warm, pulses normal, no ischemia or petechiae Neurologic: normal mental status, non-focal exam, pupils equal and round, motor strength normal and Psychiatric: mood appropriate, affect normal CBC and BMP: 12/02/17 05:32 12/02/17 05:32 ABG, PT/INR, D-dimer: PT/INR, D-dimer PT 12.9 Sec. (12.2-14.9) 12/02/17 05:32 INR 0.92 (0.87-1.13) 12/02/17 05:32 D-Dimer 558.12 ng/mlDDU (0-234) H 11/23/17 15:00 Abnormal lab findings: Abnormal Labs 11/23/17 11/23/17 11/23/17 00:37 00:37 05:48 WBC 12.2 H RBC 3.59 L MCH 33 H RDW Lymph % (Auto) [place] % (Auto) 8.2 H [place] # 1.0 H Seg Neutrophils % 71.8 H Monocytes % (Manual) Seg Neutrophils # 8.8 H D-Dimer Sodium Potassium 2.8 L* Chloride Carbon Dioxide Creatinine Glucose 124 H POC Glucose Total Creatine Kinase 530 H CK-MB (CK-2) 5.9 H 11/23/17 11/23/17 11/24/17 15:00 15:00 07:17 WBC RBC MCH RDW Lymph % (Auto) [place] % (Auto) [place] # Seg Neutrophils % Monocytes % (Manual) Seg Neutrophils # D-Dimer 558.12 H Sodium Potassium Chloride Carbon Dioxide 20 L Creatinine 0.6 L 0.5 L Glucose 120 H 110 H POC Glucose Total Creatine Kinase CK-MB (CK-2) 11/25/17 11/25/17 11/29/17 04:33 04:33 04:19 WBC RBC 3.25 L 3.48 L MCH 33 H 33 H RDW Lymph % (Auto) 35.9 H [place] % (Auto) 10.4 H 13.9 H [place] # 0.9 H 1.0 H Seg Neutrophils % Monocytes % (Manual) Seg Neutrophils # D-Dimer Sodium Potassium Chloride Carbon Dioxide Creatinine 0.6 L Glucose 113 H POC Glucose Total Creatine Kinase CK-MB (CK-2) 11/29/17 11/30/17 11/30/17 04:19 03:51 03:51 WBC RBC 3.61 L MCH RDW 13.1 L Lymph % (Auto) [place] % (Auto) 14.5 H [place] # 1.1 H Seg Neutrophils % Monocytes % (Manual) Seg Neutrophils # D-Dimer Sodium 133 L Potassium Chloride 97.1 L 96.4 L Carbon Dioxide Creatinine 0.6 L 0.5 L Glucose POC Glucose Total Creatine Kinase CK-MB (CK-2) 12/01/17 12/02/17 12/02/17 21:22 05:32 05:32 WBC RBC 3.61 L MCH RDW Lymph % (Auto) [place] % (Auto) [place] # Seg Neutrophils % Monocytes % (Manual) 12.0 H Seg Neutrophils # D-Dimer Sodium 135 L Potassium Chloride Carbon Dioxide Creatinine 0.6 L Glucose 101 H POC Glucose 109 H Total Creatine Kinase CK-MB (CK-2) 12/02/17 12/03/17 21:35 12:21 WBC RBC MCH RDW Lymph % (Auto) [place] % (Auto) [place] # Seg Neutrophils % Monocytes % (Manual) Seg Neutrophils # D-Dimer Sodium Potassium Chloride Carbon Dioxide Creatinine Glucose POC Glucose 121 H 106 H Total Creatine Kinase CK-MB (CK-2) Allied health notes reviewed: nursing
== END 2017-12-03 18:20 | disposition home health service (06) | DRG 224 ==
LOC: ED 23:50 → CC1 11-23 05:25 → 4A 11-24 14:39
PROVIDERS: ADMIT Internal Medicine; ATTEND Internal Medicine
PROC: 5A12012 Performance of Cardiac Output, Single, Manual (ICD-10-PCS; 2017-11-23)
PROC: 4B02XSZ Measurement of Cardiac Pacemaker, External Approach (ICD-10-PCS; 2017-11-26)
PROC: 4A023N7 Measurement of Cardiac Sampling and Pressure, Left Heart, Percutaneous Approach (ICD-10-PCS; principal; 2017-11-29)
PROC: B211YZZ Fluoroscopy of Multiple Coronary Arteries using Other Contrast (ICD-10-PCS; 2017-11-29)
PROC: B215YZZ Fluoroscopy of Left Heart using Other Contrast (ICD-10-PCS; 2017-11-29)
PROC: 0JH608Z Insertion of Defibrillator Generator into Chest Subcutaneous Tissue and Fascia, Open Approach (ICD-10-PCS; 2017-12-02)
PROC: 02HL3KZ Insertion of Defibrillator Lead into Left Ventricle, Percutaneous Approach (ICD-10-PCS; 2017-12-02)
PROC: 0JPT0PZ Removal of Cardiac Rhythm Related Device from Trunk Subcutaneous Tissue and Fascia, Open Approach (ICD-10-PCS; 2017-12-02)
PROC: 4B02XTZ Measurement of Cardiac Defibrillator, External Approach (ICD-10-PCS; 2017-12-03)
DX: I49.01 Ventricular fibrillation (principal); J69.0 Pneumonitis due to inhalation of food and vomit; I50.23 Acute on chronic systolic (congestive) heart failure; G45.9 Transient cerebral ischemic attack, unspecified; I46.9 Cardiac arrest, cause unspecified; I42.8 Other cardiomyopathies; I27.20 Pulmonary hypertension, unspecified; E87.6 Hypokalemia; F17.200 Nicotine dependence, unspecified, uncomplicated; I25.10 Atherosclerotic heart disease of native coronary artery without angina pectoris; R55 Syncope and collapse; F10.10 Alcohol abuse, uncomplicated; Z71.6 Tobacco abuse counseling
CPT/HCPCS: 33225; 33233; 33249; 36415; 70450; 70496; 70498; 71045; 72100; 72125; 80048; 80307; 82550; 82553; 82962; 83735; 84439; 84443; 84484; 85007; 85025; 85379; 85610; 85670; 85730; 93005; 93010; 93306; 93458; 93880; 94760; 96365; 96366; C1769; C1882; C1892; C1894; C1895; C1900; J0153; J0171; J0690; J0696; J1644; J2250; J2270; J2405; J2704; J3010; J3370; J3475; J3480; J7030; J7040; Q9967

== ENCOUNTER 2019-04-04 16:17 | Emergency (ER) | payer SELFPAY | END 2019-04-04 19:41 | disposition left against medical advice (07) | LOC: ED 16:17 | DX: R68.84 Jaw pain (principal); Z53.21 Procedure and treatment not carried out due to patient leaving prior to being seen by health care provider ==

== ENCOUNTER 2019-07-03 08:32 | Emergency (ER) | payer SELFPAY ==
[2019-07-03 09:58] LABS: Bacteria,Urine 1+ /HPF (Negative); Bilirubin,Urine NEG (Negative); Blood,Urine NEG (Negative); Color,Urine Yellow (Yellow); Protein,Urine <15 mg/dL mg/dL (Negative); RBC,Urine < 1.0 /HPF (0.0-6.0); Urobilinogen,Urine < 2.0 mg/dL (<2.0)
--- NOTE | 2019-07-03 11:10 | Emergency Department Report ---
HPI - General Chief Complaint: Abdominal Pain Time Seen by Provider: 07/03/19 10:51 - HPI HPI: 58-year-old -[place] female presents to the emergency department from home with complaint of left lower quadrant abdominal pain that has been going on over the past month. Patient says that she always has some level of a constant pain but the intensity increases or decreases depending on her positioning. She denies any fever, nausea, vomiting, dysuria, vaginal bleeding or discharge, constipation or diarrhea. The patient thought it could be related to a urinary tract infection and has been drinking cranberry juice without any relief. She has a past medical history of CHF, coronary artery disease with previous [place], hypertension and an AICD in place. She does not have a primary care physician. No recent travel or sick contacts at home. ED Past Medical Hx - Past Medical History Previous Medical History?: Yes Hx Hypertension: Yes Hx Heart Attack/AMI: Yes (2018) Hx Congestive Heart Failure: Yes Hx Diabetes: No Hx Asthma: No Hx COPD: No - Surgical History Past Surgical History?: Yes Additional Surgical History: defribillator - Social History Smoking Status: Current Every Day Smoker Substance Use Type: Alcohol - Medications Home Medications: Home Medications Medication Instructions Recorded Confirmed Last Taken Type Digoxin [Lanoxin] 0.125 mg PO DAILY@1700 #30 tablet 12/03/17 Unknown Rx carvediloL [Coreg] 3.125 mg PO BID #60 tablet 12/03/17 Unknown Rx cephALEXin [Keflex] 500 mg PO Q12HR 10 Days cap 12/03/17 Unknown Rx lisinopriL [Zestril TAB] 5 mg PO QDAY #30 tablet 12/03/17 Unknown Rx Acetaminophen [Tylenol Arthritis] 650 mg PO Q6HR PRN #30 tablet.er 02/01/18 Unknown Rx Chlorhexidine Mouthwash [Peridex] 15 ml MM BID #1 bottle 02/01/18 Unknown Rx Furosemide [Lasix TAB] 20 mg PO BID #60 tablet 02/01/18 Unknown Rx Ibuprofen [Motrin] 600 mg PO Q8H PRN #30 tablet 02/01/18 Unknown Rx HYDROcodone/APAP 5-325 [[place] 1 each PO Q6H PRN #10 tablet 07/03/19 Unknown Rx 5-325 mg TAB] Nitrofurantoin Edgar/M-Cryst 100 mg PO Q12HR #14 capsule 07/03/19 Unknown Rx [Macrobid CAP] ED Review of Systems ROS: Stated complaint: ABD PAIN Other details as noted in HPI Comment: All other systems reviewed and negative Constitutional: denies: chills, fever Respiratory: denies: cough, shortness of breath Cardiovascular: denies: chest pain, palpitations Gastrointestinal: abdominal pain. denies: vomiting, diarrhea, constipation Genitourinary: denies: dysuria, discharge Musculoskeletal: denies: back pain, arthralgia Skin: denies: rash, lesions Neurological: denies: headache, weakness Physical Exam - Physical Exam Vital Signs: Vital Signs 07/03/19 08:49 Temperature 98.6 F Pulse Rate 83 Respiratory 20 Rate Blood Pressure 134/84 O2 Sat by Pulse 100 Oximetry Physical Exam: GENERAL: The patient is well-developed well-nourished. HENT: Normocephalic. Atraumatic. Patient has moist mucous membranes. EYES: Extraocular motions are intact. NECK: Supple. Trachea is midline. CHEST/LUNGS: Clear to auscultation. There is no respiratory distress noted. HEART/CARDIOVASCULAR: Regular. There is no tachycardia. ABDOMEN: Abdomen is soft. There is some left lower quadrant abdominal tenderness to palpation. No guarding. Patient has normal bowel sounds. There is no abdominal distention. SKIN: Skin is warm and dry. NEURO: The patient is awake, alert, and oriented. The patient is cooperative. The patient has no focal neurologic deficits. Normal speech. MUSCULOSKELETAL: There is no tenderness or deformity. There is no evidence of acute injury. ED Course Vital Signs 07/03/19 08:49 Temperature 98.6 F Pulse Rate 83 Respiratory 20 Rate Blood Pressure 134/84 O2 Sat by Pulse 100 Oximetry ED Medical Decision Making - Lab Data Result diagrams: 07/03/19 10:54 07/03/19 10:54 - Radiology Data Radiology results: report reviewed, image reviewed interpreted by me: Abdominal x-ray shows nonspecific nonobstructive bowel gas. CT ABDOMEN AND PELVIS WITH CONTRAST INDICATION / CLINICAL INFORMATION: One week of left lower quadrant pain. TECHNIQUE: Axial CT images were obtained through the abdomen and pelvis after 100 mL Omnipaque [address] scans at this location are performed using CT dose reduction for ALARA by means of automated exposure control. COMPARISON: Abdominal radiograph from earlier today FINDINGS: LOWER CHEST: No significant abnormality. LIVER: Circumscribed, relati vely hyperenhancing mass lesion with peripheral vascularity in the left hepatic lobe measures 5 x 5.9 x 3.4 cm (AP by TV by CC). Nearby left lobe lesion measuring 2.5 cm in diameter is visible on series 2 image 20, with central hypoattenuation and peripheral serpiginous hyperenhancement. In the right lobe centrally on series 2 image 36 is a homogeneously hypoattenuating lesion without a perceptible wall that measures 2.7 cm in greatest dimension. Normal liver size and contour. BILIARY SYSTEM: No significant abnormality. PANCREAS: No significant abnormality. SPLEEN: No significant abnormality. ADRENALS: No significant abnormality. KIDNEYS and URETERS: No significant abnormality. STOMACH / BOWEL: No significant abnormality. No acute inflammation or obstruction. Normal appendix. PERITONEUM: No free fluid. No free air. No fluid collection. LYMPH NODES: No adenopathy. VASCULAR STRUCTURES: No significant abnormality. URINARY BLADDER: No significant abnormality. REPRODUCTIVE ORGANS: Uterus contains multiple fibroids, some of which have coarse degenerative calcifications. ADDITIONAL FINDINGS: None. SKELETAL SYSTEM: Degenerative changes in the lumbar spine. No acute finding. IMPRESSION: 1. No acute finding likely to explain the patient's left lower quadrant pain. 2. Enlarged, multi fibroid uterus. 3. There are at least 3 focal lesions in the liver, each with different appearance as described above. Dedicated liver protocol CT or MRI is recommended on a nonemergent basis for complete characterization of these lesions. - Medical Decision Making This patient presents to the emergency department with a complaint of some left lower quadrant abdominal pain that has been going on for the past month intermittently but worsened over the past few days and has become more constant. On examination she does have some reproducible left lower quadrant abdominal pain to palpation but the abdomen is otherwise soft, nondistended and nontoxic in appearance. Labs have been grossly unremarkable including CBC and metabolic panel. Urinalysis shows 9 white blood cells in the urine along with trace leukocyte Estrace and nitrites and therefore she will be treated for a mild urinary tract infection. Abdominal x-ray shows nonspecific nonobstructive bowel gas. CT scan of the abdomen and pelvis with IV contrast shows a fibroid uterus and some nonspecific liver lesions. Patient appears safe for discharge home at this time. She has been given a prescription for some pain medication and referrals for primary care and gastroenterology. She will return to the ER with any worsening of her symptoms or any acute distress. Critical Care Time: No Critical care attestation.: If time is entered above; I have spent that time in minutes in the direct care of this critically ill patient, excluding procedure time. ED Disposition Clinical Impression: LLQ abdominal pain Fibroid uterus Qualifiers: Uterine leiomyoma location: unspecified location Qualified Code(s): D25.9 - Leiomyoma of uterus, unspecified UTI (urinary tract infection) Qualifiers: Urinary tract infection type: acute cystitis Hematuria presence: without hematuria Qualified Code(s): N30.00 - Acute cystitis without hematuria Disposition: TO HOME OR SELFCARE Is pt being admited?: No Condition: Stable Instructions: Uterine Fibroids (ED), Urinary Tract Infection in Women (ED), Abdominal Pain (ED) Additional Instructions: Please follow-up with a primary care physician. I am giving you a referral for Dr. Joya, a local academic affairs coordinator who is part of [facility], to follow-up regarding your abdominal pains and the nonspecific liver lesions found on your CT scan today. I am giving you a prescription for Macrobid/nitrofurantoin to treat your mild urinary tract infection. Return to the emergency department with any worsening of your symptoms or any acute distress. You have been prescribed a medication that is sedating and therefore should not be taken prior to driving, working, and responsible for children and in no way should be mixed with alcohol of any quantity. Prescriptions: Nitrofurantoin Edgar/M-Cryst [Macrobid CAP] 100 mg PO Q12HR #14 capsule HYDROcodone/APAP 5-325 [[place] 5-325 mg TAB] 1 each PO Q6H PRN #10 tablet PRN Reason: Pain, Moderate (4-6) Referrals: PRIMARY MD JOSE [Primary Care Provider] - 3-5 Days ALISA JOYA MD [Staff Physician] - 3-5 Days JOHNNA JUÁREZ MD [Staff Physician] - 3-5 Days [facility] [Provider Group] - 3-5 Days Time of Disposition: 14:13
[2019-07-03 11:14] LABS: Basophils # (Auto) 0.1 K/mm3 (0.0-0.1); Basophils % (Auto) 1.4 % (0.0-1.8); Eosinophils # (Auto) 0.2 K/mm3 (0.0-0.4); Eosinophils % (Auto) 3.6 % (0.0-4.3); Hematocrit 39.8 % (30.3-42.9); Hemoglobin 13.4 gm/dl (10.1-14.3); Lymphocytes # (Auto) 1.7 K/mm3 (1.2-5.4); Lymphocytes % (Auto) 28.3 % (13.4-35.0); Mean Corpuscular HGB Conc 34 % (30-34); Mean Corpuscular Volume 94 fl (79-97); Monocytes # (Auto) 0.6 K/mm3 (0.0-0.8); Monocytes % (Auto) 10.9 % (0.0-7.3); Platelet Count 201 K/mm3 (140-440); Red Blood Count 4.23 M/mm3 (3.65-5.03); Red Cell Distribution Width 13.2 % (13.2-15.2)
--- NOTE | 2019-07-03 11:47 | XRay Report ---
ABDOMEN 2 VIEWS INDICATION / CLINICAL INFORMATION: aBD PAIN. COMPARISON: None available. FINDINGS: Nonspecific bowel gas pattern. No definite evidence of obstruction or pneumoperitoneum. There are roxi cified fibroids in the uterus. Signer Name: Jake Cruz MD FACR Signed: 07/03/2019 11:42 AM Workstation Name: [id number]
[2019-07-03 12:41] LABS: Alanine Aminotransferase 20 units/L (7-56); Albumin 4.6 g/dL (3.9-5); BUN/Creatinine Ratio 15; Blood Urea Nitrogen 9 mg/dL (7-17); Hemolysis Index 28
[2019-07-03 12:44] LABS: Bilirubin,Direct < 0.2 mg/dL (0-0.2)
[2019-07-03 13:25] VITALS: BP 135/73
--- NOTE | 2019-07-03 13:46 | Cat Scan Report ---
CT ABDOMEN AND PELVIS WITH CONTRAST INDICATION / CLINICAL INFORMATION: One week of left lower quadrant pain. TECHNIQUE: Axial CT images were obtained through the abdomen and pelvis after 100 mL Omnipaque [address] scans at this location are performed using CT dose reduction for ALARA by means of automated exposure control. COMPARISON: Abdominal radiograph from earlier today FINDINGS: LOWER CHEST: No significant abnormality. LIVER: Circumscribed, relatively hyperenhancing mass lesion with peripheral vascularity in the left h epatic lobe measures 5 x 5.9 x 3.4 cm (AP by TV by CC). Nearby left lobe lesion measuring 2.5 cm in d iameter is visible on series 2 image 20, with central hypoattenuation and peripheral serpiginous hype renhancement. In the right lobe centrally on series 2 image 36 is a homogeneously hypoattenuating les ion without a perceptible wall that measures 2.7 cm in greatest dimension. Normal liver size and cont our. BILIARY SYSTEM: No significant abnormality. PANCREAS: No significant abnormality. SPLEEN: No significant abnormality. ADRENALS: No significant abnormality. KIDNEYS and URETERS: No significant abnormality. STOMACH / BOWEL: No significant abnormality. No acute inflammation or obstruction. Normal appendix. PERITONEUM: No free fluid. No free air. No fluid collection. LYMPH NODES: No adenopathy. VASCULAR STRUCTURES: No significant abnormality. URINARY BLADDER: No significant abnormality. REPRODUCTIVE ORGANS: Uterus contains multiple fibroids, some of which have coarse degenerative calcif ications. ADDITIONAL FINDINGS: None. SKELETAL SYSTEM: Degenerative changes in the lumbar spine. No acute finding. IMPRESSION: 1. No acute finding likely to explain the patient's left lower quadrant pain. 2. Enlarged, multi fibroid uterus. 3. There are at least 3 focal lesions in the liver, each with different appearance as described abov e. Dedicated liver protocol CT or MRI is recommended on a nonemergent basis for complete characteriza tion of these lesions. Signer Name: Alfred Gerard MD Signed: 07/03/2019 1:42 PM Workstation Name: [id number]
== END 2019-07-03 14:50 | disposition home or self-care (01) ==
LOC: ED 08:32
DX: N39.0 Urinary tract infection, site not specified (principal); D25.9 Leiomyoma of uterus, unspecified; R10.32 Left lower quadrant pain; I11.0 Hypertensive heart disease with heart failure; I50.9 Heart failure, unspecified; I25.2 Old myocardial infarction; F17.200 Nicotine dependence, unspecified, uncomplicated; Z79.899 Other long term (current) drug therapy; Z95.810 Presence of automatic (implantable) cardiac defibrillator
CPT/HCPCS: 36415; 74019; 74177; 80048; 80076; 81001; 83690; 85025; 87086; 87186; 99285; Q9967; 87076

== ENCOUNTER 2019-07-23 13:20 | Emergency (ER) | payer SELFPAY ==
[2019-07-23 13:24] VITALS: BP 140/83
--- NOTE | 2019-07-23 13:59 | Event Note ---
ED Screening Note ED Screening Note: she is c/o of bilateral LE pain for a month she states that her legs have been getting smaller no leg swelling
--- NOTE | 2019-07-23 14:05 | Emergency Department Report ---
Chief Complaint: Extremity Injury, Lower Stated Complaint: TROUBLE WALKING Time Seen by Provider: 07/23/19 13:59 - HPI History of Present Illness: Patient is a 58 yo female who presents to the Ed with c/o of bilateral LE pain for a month she states that her legs have been getting "smaller" no leg swelling She was concerned because she had been reading on the Internet this morning and she thought she had peripheral vascular disease based on googling Vitals are stable On exam: No tenderness to palpation of bilateral lower extremities, full range of motion, no skin changes, no ulcerations, no varicose veins, no erythema, no leg swelling bilaterally, neurovascularly intact, strong pulses No obvious abnormality on physical examination No clinical signs or symptoms of DVT or significant arterial occlusion advised pt please follow up with a primary care doctor for further evaluation. return to the emergency room for any new or worsening symptoms. Discussed the importance of follow-up Discussed strict return precautions with patient Medical screening performed and there is no threat to life or limb at this time - Exam Vital Signs: Vital Signs 07/23/19 13:23 Temperature 97.8 F Pulse Rate 98 H Respiratory 14 Rate Blood Pressure 140/83 O2 Sat by Pulse 98 Oximetry MSE screening note: Focused history and physical exam performed. ED Disposition for MSE Clinical Impression: Bilateral leg pain Disposition: Z-07 MED SCREENING EXAM-LEFT Is pt being admited?: No Does the pt Need Aspirin: No Condition: Stable Instructions: Arthralgia (ED) Additional Instructions: please follow up with a primary care doctor for further evaluation. return to the emergency room for any new or worsening symptoms. Referrals: FIDENCIO KEY MD [Staff Physician] - 3-5 Days [facility] [Provider Group] - 3-5 Days [facility] [Outside] - 3-5 Days [facility] [Outside] - 3-5 Days Time of Disposition: 14:04 Print Language: SAO TOMEAN
== END 2019-07-23 14:22 | disposition left against medical advice (07) ==
LOC: ED 13:20
DX: M79.604 Pain in right leg (principal); Z53.21 Procedure and treatment not carried out due to patient leaving prior to being seen by health care provider